=== PATIENT | female | born 1955 | race American Indian/Alaskan Native ===

== ENCOUNTER 2019-11-26 12:20 | Observation (INO) | payer MEDICARE ==
[2019-11-26] MEDS ORDERED: ASPIRIN 325 MG TAB PO ONE (12:41)
--- NOTE | 2019-11-26 13:23 | Emergency Department Report ---
{null, ED Chest Pain HPI - General Chief Complaint: Chest Pain Stated Complaint: CHEST PAIN Time Seen by Provider: 11/26/19 12:44 Source: EMS Mode of arrival: Stretcher Limitations: No Limitations - History of Present Illness Initial Comments: This is a 64-year-old female with multiple complaints. Her primary complaint is substernal chest pain. She said it started yesterday and it felt like gas. She also complained of pain in the left precordial chest and somewhat in her back as well as left arm. She states that she vomited yesterday and felt as if the food was not going down. She states that she has some difficulty in swallowing and feels like food hangs up. She does not complain of acute shortness of breath. She does not complain of acute diaphoresis. She also has a multitude of other complaints to include left-sided headache and left eye redness. She also states that she has abdominal pain. She is not nauseated at the current time. She denies cough leg pain or any sort of neurological or vision change. Per her 2019 discharge summary and cardiology consultation for chest pain. 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 She currently uses 2 L of oxygen continuously. She has continued to have left- sided aching posterior lateral thoracic chest pain with significant dyspnea on exertion despite home oxygen use. Patient was admitted to the hospital for further evaluation and management. Discharge diagnosis and Mx: Acute on chronic respiratory failure - from COPD exacerbation with obesity hypoventilation syndrome and pulmonary edema - on 2 L home o2 but still requiring higher O2 N/c now - CTA chest showed bilateral atelectatic changes and possible pneumonitis versus pulmonary edema - Placed on scheduled nebs, supplemental O2, pulmonary consulted - given iv lasix, repeated CXR showed worsening pulmonary edema, Bipap as needed, - Her symptom improved with medical Mx, was discharged home with , patient refused rehab - may qualified for [facility] - will continue to f/u at [facility] Atypical chest pain - ACS ruled out by negative stress test - could be from underlying pneumonitis - had h/p left lung mass treated with partial lobectomy - consulted pulmonary, noted medical records from [facility] - has f/u arranged at [facility] hyperkalemia, monitored BMP, kayexalate as needed, resolved h/o left lung mass (noncancerous vs cancerus) treated with partial lobectomy - noted record from [facility] - pathology record not available - will f/u outpt at [facility] Right renal mass (cancerous) treated with right nephrectomy - record from [facility] showed stable findings, need to cont outpt followup Right adrenal mass? - chronic and stable issue since her right nephrectomy per [facility] record - will f/u [facility] HTN/HLD - resumed home meds DM type 2 - Mx with consistent carb diet, SSI Physical debility - refused LUI, need HH on d/c DVt Px, lovenox Disposition: home with HH Cardiology consult 07/26: History of Present Illness Consult date: 07/23/19 Consult reason: chest pain History of present illness: 64-year-old female with a past medical history of diabetes, left lung mass (noncancerous) treated with partial lobectomy, right renal mass (cancerous) treated with right nephrectomy, elevated cholesterol, hypertension, and home oxy gen for the last 2 weeks after recent [facility] admission presents to the hospital complaining of left-sided chest pain and shortness of breath 2 weeks. She currently uses 2 L of oxygen continuously. She has continued to have left-sided aching posterior lateral thoracic chest pain with significant dyspnea on exertion despite home oxygen use. Pain is constant, worse with movement, and worse a palpation. Stress Thallium neg. Atypical CP was DX MD Complaint: chest pain -: Gradual Onset: during rest Pain Location: substernal Pain Radiation: LUE Severity: moderate, severe Severity scale (0 -10): 8 Quality: pressure Consistency: constant Improves With: nothing Worsens With: nothing re: nausea, vomting. denies: diaphoresis, dyspnea Other Symptoms: denies: cough, fever, syncope Treatments Prior to Arrival: none Aspirin use within the Past 7 Days: (0) No - Related Data Home Medications Medication Instructions Recorded Confirmed Last Taken AtorvaSTATin [Lipitor] 40 mg PO QHS 07/22/19 07/22/19 07/21/19 Insulin Aspart (Nf) [NovoLOG 0 units SQ AC 07/22/19 07/22/19 07/21/19 Flexpen] Insulin Detemir (Nf) [Levemir 0 unit SQ QHS 07/22/19 07/22/19 07/21/19 Flextouch (Nf)] NIFEdipine [Nifedipine ER] 30 mg PO QDAY 07/22/19 07/22/19 07/21/19 Oxybutynin [Ditropan] 5 mg PO TID 07/22/19 07/22/19 07/21/19 Previous Rx's Medication Instructions Recorded Last Taken Type Aspirin [Aspirin BABY CHEW TAB] 81 mg PO QDAY #30 tab.chew 07/27/19 Unknown Rx Budesonide/Formoterol Fumarate 10.2 gm IH BID #1 hfa.aer.ad 07/27/19 Unknown Rx [Symbicort 160-4.5 Mcg Inhaler] Furosemide [Lasix] 20 mg PO QDAY #30 tablet 07/27/19 Unknown Rx Gabapentin 100 mg PO Q8HR capsule 07/27/19 Unknown Rx Ipratropium/Albuterol Sulfate 1 ampul IH Q6HRT #30 ampul.neb 07/27/19 Unknown Rx [DUONEB *Not for PRN Use*] levoFLOXacin [Levaquin TAB] 500 mg PO Q24HR #3 tablet 07/27/19 Unknown Rx predniSONE [Deltasone] 20 mg PO QDAY #5 tab 07/27/19 Unknown Rx Allergies Allergy/AdvReac Type Severity Reaction Status Date / Time No Known Allergies Allergy Verified 11/26/19 13:09 Heart Score - HEART Score History: Moderately suspicious EKG: Non-specific Age: > 65 Risk factors: > 3 risk factors or hx of atherosclerotic disease Troponin: < normal limit HEART Score: 6 - Critical Actions Critical Actions: 4-6 pts:12-16.6% risk of adverse cardiac event. Should be adm itted ED Review of Systems ROS: Stated complaint: CHEST PAIN Other details as noted in HPI Constitutional: denies: chills, fever Eyes: other (States the left eye is not closing right). denies: eye pain, eye discharge, vision change ENT: denies: ear pain, throat pain Respiratory: denies: cough, shortness of breath, wheezing Cardiovascular: chest pain. denies: palpitations Endocrine: no symptoms reported Gastrointestinal: abdominal pain, nausea, vomiting, other (Dysphasia). denies: diarrhea Genitourinary: denies: urgency, dysuria, discharge Musculoskeletal: back pain. denies: joint swelling, arthralgia Skin: denies: rash, lesions Neurological: denies: headache, weakness, paresthesias Psychiatric: denies: anxiety, depression Hematological/Lymphatic: denies: easy bleeding, easy bruising ED Past Medical Hx - Past Medical History Previous Medical History?: Yes Hx Hypertension: Yes Hx Diabetes: Yes Hx COPD: Yes (O2-3LPM) Hx HIV: No Additional medical history: mass (noncancerous as per pt) on L kidney tx with partial lobectomy. mass on right kidney (cancer) tx with nephrectomy. Kidney stones treated with stent. Home oxygen since July 2019. Elevated cholesterol - Surgical History Past Surgical History?: Yes Additional Surgical History: mass (noncancerous as per pt) on L kidney tx with partial lobectomy. mass on right kidney (cancer) tx with nephrectomy - Social History Smoking Status: Former Smoker Substance Use Type: None - Medications Home Medications: Home Medications Medication Instructions Recorded Confirmed Last Taken Type AtorvaSTATin [Lipitor] 40 mg PO QHS 07/22/19 07/22/19 07/21/19 History Insulin Aspart (Nf) [NovoLOG 0 units SQ AC 07/22/19 07/22/19 07/21/19 History Flexpen] Insulin Detemir (Nf) [Levemir 0 unit SQ QHS 07/22/19 07/22/19 07/21/19 History Flextouch (Nf)] NIFEdipine [Nifedipine ER] 30 mg PO QDAY 07/22/19 07/22/19 07/21/19 History Oxybutynin [Ditropan] 5 mg PO TID 07/22/19 07/22/19 07/21/19 History Aspirin [Aspirin BABY CHEW TAB] 81 mg PO QDAY #30 tab.chew 07/27/19 Unknown Rx Budesonide/Formoterol Fumarate 10.2 gm IH BID #1 hfa.aer.ad 07/27/19 Unknown Rx [Symbicort 160-4.5 Mcg Inhaler] Furosemide [Lasix] 20 mg PO QDAY #30 tablet 07/27/19 Unknown Rx Gabapentin 100 mg PO Q8HR capsule 07/27/19 Unknown Rx Ipratropium/Albuterol Sulfate 1 ampul IH Q6HRT #30 ampul.neb 07/27/19 Unknown Rx [DUONEB *Not for PRN Use*] levoFLOXacin [Levaquin TAB] 500 mg PO Q24HR #3 tablet 07/27/19 Unknown Rx predniSONE [Deltasone] 20 mg PO QDAY #5 tab 07/27/19 Unknown Rx ED Physical Exam - General Limitations: No Limitations General appearance: alert, in no apparent distress - Head Head exam: Present: atraumatic, normocephalic - Eye Eye exam: Present: normal appearance, PERRL, EOMI, conjunctival injection (O. S.), other (There may be very slight lid edema but the palpebral fissure bilaterally is the same. There is no weakness.). Absent: scleral icterus - ENT ENT exam: Present: mucous membranes moist - Neck Neck exam: Present: normal inspection. Absent: tenderness, meningismus - Respiratory Respiratory exam: Present: normal lung sounds bilaterally. Absent: respiratory distress - Cardiovascular Cardiovascular Exam: Present: regular rate, normal rhythm. Absent: systolic murmur, diastolic murmur, rubs, gallop - GI/Abdominal GI/Abdominal exam: Present: soft, normal bowel sounds. Absent: distended, tenderness, guarding, rebound, rigid - Extremities Exam Extremities exam: Present: normal inspection. Absent: calf tenderness - Back Exam Back exam: Present: normal inspection - Neurological Exam Neurological exam: Present: alert, oriented X3, CN II-XII intact. Absent: motor sensory deficit - Psychiatric Psychiatric exam: Present: normal affect, normal mood - Skin Skin exam: Present: warm, dry, intact, normal color. Absent: rash ED Course Vital Signs 11/26/19 12:49 Temperature 98.1 F Pulse Rate 104 H Respiratory 22 Rate Blood Pressure 116/88 [Left] O2 Sat by Pulse 98 Oximetry - Reevaluation(s) Reevaluation #1: Discussed with Dr. Marquez. The patient has multitudinous complaints. We will get a CT of her head for complaint of headache. She will need a GI work-up. She will need further cardiac work-up. Is unclear whether she has recurrent lung mass versus pneumonia. We will get a CT of her chest. She will be admitted by Dr. Marquez. 11/26/19 14:35 ELI score - Eli Score Age > 65: (0) No Aspirin use within the Past 7 Days: (0) No 3 or more CAD Risk Factors: (1) Yes 2 or more Angina events in past 24 hrs: (0) No Known CAD with more than 50% Stenosis: (0) No Elevated Cardiac Markers: (0) No ST Deviation Greater than 0.5mm: (0) No ELI Score: 1 ED Medical Decision Making - Lab Data Result diagrams: 11/26/19 13:20 11/26/19 13:20 - EKG Data -: EKG Interpreted by Me EKG shows normal: sinus rhythm, axis, intervals, QRS complexes (QS in V2 with very small are in V3. J-point elevation. Cannot exclude anteroseptal infarct of indeterminate recency. May be related to lead position however. No reciprocal changes.), ST-T waves Rate: normal - EKG Data Interpretation: no acute changes - Radiology Data Radiology results: report reviewed, image reviewed IMPRESSION: Stable mild cardiomegaly. Possible early lingular infiltrate. Per radiologist Patient has had a previous lobectomy. The she has a history of malignancy. X- ray does look a bit worse than the prior. Critical care attestation.: If time is entered above; I have spent that time in minutes in the direct care of this critically ill patient, excluding procedure time. ED Disposition Clinical Impression: Diabetes 1.5, managed as type 2, Pulmonary infiltrate, Pulmonary mass COPD (chronic obstructive pulmonary disease) Qualifiers: COPD type: unspecified COPD Qualified Code(s): J44.9 - Chronic obstructive pulmonary disease, unspecified Chest pain Qualifiers: Chest pain type: unspecified Qualified Code(s): R07.9 - Chest pain, unspecified Dysphagia Qualifiers: Dysphagia type: unspecified Qualified Code(s): R13.10 - Dysphagia, unspecified Cephalalgia Qualifiers: Headache type: unspecified Headache chronicity pattern: unspecified pattern Intractability: not intractable Qualified Code(s): R51 - Headache Disposition: DC-09 OP ADMIT IP TO THIS HOSP Is pt being admited?: Yes Does the pt Need Aspirin: Yes Condition: Stable Instructions: Chest Pain (ED), Diabetes Mellitus Type 2 in Adults (ED), Chronic Obstructive Pulmonary Disease (ED) Time of Disposition: 14:33 }
--- NOTE | 2019-11-26 13:44 | XRay Report ---
{null, CHEST 1 VIEW INDICATION: Chest Pain. COMPARISON: 07/27/2019 FINDINGS: Support devices: None. Heart: Stable mild cardiomegaly. Lungs/Pleura: Focal airspace opacity is identified in the lingula which could represent an early infi ltrate. No large pleural effusion or pneumothorax. Additional findings: None. IMPRESSION: Stable mild cardiomegaly. Possible early lingular infiltrate. Signer Name: Aaron Cope Jr, MD Signed: 11/26/2019 1:40 PM Workstation Name: [id number] }
[2019-11-26 14:12] LABS: Basophils # (Auto) 0.1 K/mm3 (0.0-0.1); Basophils % (Auto) 0.9 % (0.0-1.8); Eosinophils # (Auto) 0.1 K/mm3 (0.0-0.4); Eosinophils % (Auto) 1.9 % (0.0-4.3); Hematocrit 39.6 % (30.3-42.9); Hemoglobin 12.8 gm/dl (10.1-14.3); Lymphocytes # (Auto) 2.3 K/mm3 (1.2-5.4); Lymphocytes % (Auto) 34.6 % (13.4-35.0); Mean Corpuscular HGB Conc 32 % (30-34); Mean Corpuscular Volume 84 fl (79-97); Monocytes # (Auto) 0.5 K/mm3 (0.0-0.8); Monocytes % (Auto) 7.1 % (0.0-7.3); Platelet Count 194 K/mm3 (140-440); Red Blood Count 4.72 M/mm3 (3.65-5.03); Red Cell Distribution Width 17.3 % (13.2-15.2)
[2019-11-26 14:21] LABS: INR 0.96 (0.87-1.13)
[2019-11-26 14:26] LABS: BUN/Creatinine Ratio 12; Blood Urea Nitrogen 13 mg/dL (7-17); Calcium 10.9 mg/dL (8.4-10.2); Hemolysis Index 25
--- NOTE | 2019-11-26 14:36 | History and Physical Report ---
{null, History of Present Illness Chief complaint: Hurting all over History of present illness: 64 YO Female with Obesity Hypoventilation, COPD on 2 L home oxygen, HTN, DM presents to ED for evaluation. Patient states that she experienced pain in her chest. However upon further interview patient localizes the epigastric area as the site of her pain. Patient also complains of neck pain as well as back pain. Patient states that pain begins in her neck and radiates down to her left arm. Patient also reports intermittent difficulty with swallowing and feeling as if food "hangs up". EMS notified and upon arrival the patient was found to be in distress and subsequently transported to [facility] for further care and evaluation. Patient seen and evaluated in the emergency department. Lab and imaging studies reviewed. Patient found to have symptoms consistent with epigastric pain secondary to gastroesophageal reflux disease, and cervical radicular pain. Patient placed in observation status and admitted to [facility] unit. Patient denies fever, chills, chest pain, palpitations, productive cough, skin rash, hemoptysis, bright red blood per rectum, odynophagia, unintentional weight loss, fever, chills, weakness, or recent ill contacts. Past History Past Medical History: COPD, diabetes, hypertension, other (See HPI) Past Surgical History: Other (Left lobectomy of the lung, right nephrectomy) Social history: , lives with family. denies: smoking, alcohol abuse Family history: diabetes, hypertension Medications and Allergies Allergies Allergy/AdvReac Type Severity Reaction Status Date / Time No Known Allergies Allergy Verified 11/26/19 13:09 Home Medications Medication Instructions Recorded Confirmed Last Taken Type AtorvaSTATin [Lipitor] 40 mg PO QHS 07/22/19 11/26/19 07/21/19 History Insulin Aspart (Nf) [NovoLOG 10 units SQ AC 07/22/19 11/26/19 07/21/19 History Flexpen] Insulin Detemir (Nf) [Levemir 28 unit SQ QHS 07/22/19 11/26/19 07/21/19 History Flextouch (Nf)] NIFEdipine [Nifedipine ER] 30 mg PO QDAY 07/22/19 11/26/19 07/21/19 History Oxybutynin [Ditropan] 5 mg PO TID PRN 07/22/19 11/26/19 07/21/19 History Aspirin [Aspirin BABY CHEW TAB] 81 mg PO QDAY #30 tab.chew 07/27/19 11/26/19 Unknown Rx Budesonide/Formoterol Fumarate 10.2 gm IH BID #1 hfa.aer.ad 07/27/19 11/26/19 Unknown Rx [Symbicort 160-4.5 Mcg Inhaler] Furosemide [Lasix] 20 mg PO QDAY #30 tablet 07/27/19 11/26/19 Unknown Rx Ipratropium/Albuterol Sulfate 1 ampul IH Q6HRT #30 ampul.neb 07/27/19 11/26/19 Unknown Rx [DUONEB *Not for PRN Use*] predniSONE [Deltasone] 20 mg PO QDAY #5 tab 07/27/19 Unknown Rx Gabapentin 1 cap PO TID 11/26/19 11/26/19 Unknown History lisinopriL [Zestril TAB] 1 tab PO DAILY 11/26/19 11/26/19 Unknown History Active Meds: Active Medications Levofloxacin/Dextrose (Levaquin 750mg/150ml) 750 mg in 150 mls @ 100 mls/hr IV ONCE ONE; Protocol Stop: 11/26/19 15:35 Review of Systems Constitutional: no weight loss, no weight gain, no fever, no chills, no weakness Ears, nose, mouth and throat: no ear pain, no ear discharge, no tinnitis, no decreased hearing, no nose pain Breasts: no change in shape, no swelling, no mass Cardiovascular: no chest pain, no palpitations, no rapid/irregular heart beat, no edema, no syncope Respiratory: no cough, no cough with sputum, no excessive sputum Gastrointestinal: other (Epigastric pain) Genitourinary Female: no pelvic pain, no flank pain, no menorrhagia, no urinary frequency, no urgency Rectal: no pain, no incontinence, no bleeding Musculoskeletal: neck pain, shooting arm pain, other (Back pain), no shooting leg pain, no leg numbness/tingling, no redness of joints Integumentary: no rash, no pruritis, no sores, no wounds Neurological: no transient paralysis, no paralysis, no weakness, no parathesias, no seizures Psychiatric: no anxiety, no memory loss, no sleep disturbances, no hypersomnia, no change in appetite Endocrine: no cold intolerance, no polyphagia, no polydipsia, no polyuria, no nocturia Hematologic/Lymphatic: no easy bruising, no easy bleeding, no lymphadenopathy, no lymphedema Allergic/Immunologic: no urticaria, no allergic rhinitis, no persistent infections, no angioedema Exam - Constitutional Vitals: Temp Pulse Resp BP Pulse Ox 98.1 F 104 H 22 116/88 98 11/26/19 12:49 11/26/19 12:49 11/26/19 12:49 11/26/19 12:49 11/26/19 12:49 General appearance: Present: no acute distress, well-nourished, obese - EENT Eyes: Present: PERRL ENT: hearing intact, clear oral mucosa - Neck Neck: Present: supple, normal ROM - Respiratory Respiratory effort: normal Respiratory: bilateral: CTA - Cardiovascular Heart Sounds: Present: S1 & S2. Absent: rub, click - Extremities Extremities: pulses symmetrical, No edema Peripheral Pulses: within normal limits - Abdominal General gastrointestinal: Present: soft, non-tender, non-distended, normal bowel sounds Female genitourinary: Present: normal - Integumentary Integumentary: Present: clear, warm, dry - Musculoskeletal Musculoskeletal: gait normal, strength equal bilaterally - Psychiatric Psychiatric: appropriate mood/affect, intact judgment & insight - Neurologic Neurologic: CNII-XII intact, moves all extremities Results - Labs CBC & Chem 7: 11/26/19 13:20 11/26/19 13:20 Labs: Abnormal lab results 11/26/19 11/26/19 Range/Units 13:20 13:20 MCH 27 L (28-32) pg RDW 17.3 H (13.2-15.2) % Carbon Dioxide 20 L (22-30) mmol/L Glucose 116 H (65-100) mg/dL Calcium 10.9 H (8.4-10.2) mg/dL Assessment and Plan - Patient Problems (1) Epigastric pain Current Visit: Yes Status: Acute Plan to address problem: PPI therapy, supportive care serial physical exam, outpatient GI follow-up. (2) GERD (gastroesophageal reflux disease) Current Visit: Yes Status: Acute Qualifiers: Esophagitis presence: with esophagitis Qualified Code(s): K21.0 - Gastro- esophageal reflux disease with esophagitis Plan to address problem: PPI therapy, supportive care, pain control, outpatient GI follow-up. (3) Cervical radiculopathy Current Visit: Yes Status: Acute Plan to address problem: Cervical spine x-ray, continue daily steroid therapy, supportive care, physical therapy consult. (4) Degenerative disc disease Current Visit: Yes Status: Acute Qualifiers: Spinal region: thoracic Qualified Code(s): M51.34 - Other intervertebral disc degeneration, thoracic region Plan to address problem: Thoracic spine x-ray, NSAID therapy as tolerated, supportive care. (5) DVT prophylaxis Current Visit: Yes Status: Acute Plan to address problem: SCD to bilateral lower extremities while in bed, patient ambulatory. (6) Advance care planning Current Visit: Yes Status: Acute Plan to address problem: Disease education conducted, patient is full code, patient and son acknowledge understanding and agreement with care plan, +30 minutes. }
[2019-11-26] MEDS ORDERED: ONDANSETRON 4 MG/2 ML INJ IV PRN (14:50)
[2019-11-26] MEDS ORDERED: ALBUTEROL 2.5 MG/3 ML NEBU IH PRN (14:50)
[2019-11-26 15:05] LABS: INR 0.97 (0.87-1.13)
[2019-11-26 16:12] LABS: Alanine Aminotransferase 8 units/L (7-56); Albumin 3.3 g/dL (3.9-5); Bilirubin,Direct < 0.2 mg/dL (0-0.2)
--- NOTE | 2019-11-26 17:58 | Cat Scan Report ---
{null, CT BRAIN: 11/26/2019 INDICATION / CLINICAL INFORMATION: headache. COMPARISON: None available. FINDINGS: BRAIN/INTRACRANIAL STRUCTURES: Unenhanced CT images of the brain demonstrate no evidence of acute int racranial abnormality. Ventricles and sulci are slightly prominent in size, consistent with some age-related atrophic change . There is no evidence of acute ischemic injury, hemorrhage, or mass. There are no abnormal extra-axial fluid collections. Atherosclerotic vascular calcifications are present in the distal internal carotid arteries and verte bral arteries. EXTRACRANIAL STRUCTURES: Unremarkable. IMPRESSION: No acute abnormality. All CT scans at this location are performed using dose reduction to ALARA by means of automated expos ure control. Signer Name: Reji Marie MD Signed: 11/26/2019 5:53 PM Workstation Name: [id number] }
--- NOTE | 2019-11-26 18:08 | Cat Scan Report ---
{null, CTA CHEST WITH IV CONTRAST INDICATION / CLINICAL INFORMATION: Left lung mass versus infiltrate. TECHNIQUE: Axial CT images were obtained through the chest after injection of 100 cc Omnipaque 350 milligrams pe rcent IV contrast. 3 plane MIP and/or 3D reconstructions were produced. All CT scans at this location are performed using CT dose reduction for ALARA by means of automated exposure control. COMPARISON: Exam is compared to 07/22/2019 FINDINGS: PULMONARY ARTERIES: No pulmonary emboli. THORACIC AORTA: No significant abnormality. HEART: No significant abnormality. CORONARY ARTERIES: No significant calcification. PLEURA: No pleural effusion. No pneumothorax. LYMPH NODES: Persistent enlargement of a pretracheal retrocaval lymph node is noted. No convincing ev idence of adenopathy in the aortic pulmonary window. Subcarinal adenopathy is present measuring 2.14 cm in short axis essentially unchanged as compared to previous exam LUNGS: Persistent airspace consolidation and pleural thickening is present left hemithorax and has in creased as compared to previous exam. Right lung is well aerated with prominent bronchovascular mike ngs ADDITIONAL FINDINGS: Enlargement of the left axillary lymph node as compared to previous exam, measur ing 2.6 cm on previous exam measured 1.94 cm and a 1.73 cm left adrenal mass increased from previous exam measured 1.23 cm UPPER ABDOMEN: 4 cm right adrenal mass is present worrisome for metastatic disease unchanged from pre vious exam SKELETAL STRUCTURES: Lytic lesion present posterior sixth rib on the left IMPRESSION: 1. No CT evidence for pulmonary embolism. 2. Progressive airspace process with pleural thickening left hemithorax worrisome for lung carcinoma with extensive pleural disease 3. Increased left axillary lymphadenopathy consistent with metastatic disease 4. Persistent mediastinal lymphadenopathy 5. Persistent right and left adrenal masses consistent with metastatic disease 6. Skeletal metastatic disease as noted Signer Name: Kade Galeas MD Signed: 11/26/2019 6:03 PM Workstation Name: [id number] }
[2019-11-26] MEDS: ACETAMINOPHEN 325 MG TAB PO PRN (20:21)
[2019-11-26] MEDS: OXYBUTYNIN 5 MG TAB PO SCH (20:23)
[2019-11-26] MEDS: PANTOPRAZOLE 40 MG TAB PO SCH (22:44)
[2019-11-26] MEDS: GABAPENTIN 100 MG CAP PO SCH (22:44)
[2019-11-27] MEDS: GABAPENTIN 100 MG CAP PO SCH ×2 (06:08→16:05)
[2019-11-27 06:31] LABS: BUN/Creatinine Ratio 18; Blood Urea Nitrogen 14 mg/dL (7-17); Calcium 11.1 mg/dL (8.4-10.2); Hemolysis Index 53
[2019-11-27 06:50] LABS: Hematocrit TNR % (30.3-42.9); Hemoglobin TNR gm/dl (10.1-14.3); Lymphocytes % (Auto) TNR % (13.4-35.0); Mean Corpuscular HGB Conc TNR % (30-34); Mean Corpuscular Volume TNR fl (79-97); Mean Platelet Volume TNR fl (6-12); Platelet Count TNR K/mm3 (140-440); Red Blood Count TNR M/mm3 (3.65-5.03); Red Cell Distribution Width TNR % (13.2-15.2)
[2019-11-27 07:02] LABS: Basophils # (Auto) TNR K/mm3 (0.0-0.1); Basophils % (Auto) TNR % (0.0-1.8); Eosinophils # (Auto) TNR K/mm3 (0.0-0.4); Eosinophils % (Auto) TNR % (0.0-4.3); Lymphocytes # (Auto) TNR K/mm3 (1.2-5.4); Monocytes # (Auto) TNR K/mm3 (0.0-0.8); Monocytes % (Auto) TNR % (0.0-7.3)
[2019-11-27 09:34] LABS: Basophils # (Auto) 0.1 K/mm3 (0.0-0.1); Basophils % (Auto) 1.7 % (0.0-1.8); Eosinophils # (Auto) 0.2 K/mm3 (0.0-0.4); Eosinophils % (Auto) 2.2 % (0.0-4.3); Hematocrit 38.8 % (30.3-42.9); Hemoglobin 12.3 gm/dl (10.1-14.3); Lymphocytes # (Auto) 2.5 K/mm3 (1.2-5.4); Lymphocytes % (Auto) 31.9 % (13.4-35.0); Mean Corpuscular HGB Conc 32 % (30-34); Mean Corpuscular Volume 84 fl (79-97); Monocytes # (Auto) 0.4 K/mm3 (0.0-0.8); Monocytes % (Auto) 5.4 % (0.0-7.3); Platelet Count 208 K/mm3 (140-440); Red Blood Count 4.61 M/mm3 (3.65-5.03); Red Cell Distribution Width 17.1 % (13.2-15.2)
[2019-11-27] MEDS ORDERED: predniSONE 20 MG TAB PO SCH (10:00)
[2019-11-27] MEDS ORDERED: NIFEdipine XL 30 MG TAB PO SCH (10:00)
[2019-11-27] MEDS ORDERED: ASPIRIN 81 MG TAB CHEW PO SCH (10:00)
[2019-11-27] MEDS ORDERED: FUROSEMIDE 20 MG TAB PO SCH (10:00)
[2019-11-27] MEDS ORDERED: NON-FORMULARY EACH (Nifedipine [Nifedipine Er] 30 MG) PO SCH (10:00)
[2019-11-27] MEDS: PANTOPRAZOLE 40 MG TAB PO SCH (11:30)
[2019-11-27] MEDS: OXYBUTYNIN 5 MG TAB PO SCH ×2 (11:33→16:05)
--- NOTE | 2019-11-27 11:43 | XRay Report ---
{null, THORACIC SPINE HISTORY: Pain COMPARISON: None. TECHNIQUE: Multiple 2 view(s) of the thoracic spine obtained. FINDINGS: Vertebrae: Normal alignment. No fracture or significant abnormality. Disc Spaces:Degenerative disc disease with large anterior and lateral osteophytes from T6 through T11 . Disc space narrowing is greatest at T9-10 and T10-11. Paraspinous Soft Tissues:No significant abnormality. Additional findings: None. IMPRESSION: 1. Degenerative disc disease T6-T11. 2. No fracture or other acute finding. Signer Name: Gab Fernandez MD Signed: 11/27/2019 11:38 AM Workstation Name: [id number] }
--- NOTE | 2019-11-27 11:47 | XRay Report ---
{null, CERVICAL SPINE 4 VIEWS 0942 INDICATION: neck pain COMPARISON: None available. FINDINGS: Extensive bilateral carotid region calcifications are seen. No soft tissue swelling is note d. Lower cervical degenerative changes are moderately prominent with moderate disc space narrowing at C5-6. Bony detail is poor on lateral projections at C6-7 despite a swimmer's lateral view. No obviou s fractures are seen. No subluxation is noted. Signer Name: Osman Reveles MD Signed: 11/27/2019 11:43 AM Workstation Name: [id number] }
--- NOTE | 2019-11-27 13:01 | Discharge Summary ---
{null, Providers - Providers Date of Admission: 11/26/19 14:50 Date of discharge: 11/27/19 Attending physician: NAOMI MURO 11/26/19 19:47 Physical Therapy Evaluation and Treat [CONS] Routine Comment: Reason For Exam: Cervical radiculopathy Primary care physician: HERD TESTER Hospitalization Condition: Stable Disposition: DC-01 TO HOME OR SELFCARE Time spent for discharge: 34 minutes Exam - Constitutional Vitals: Temp Pulse Resp BP Pulse Ox 98 F 98 H 18 132/94 100 11/27/19 08:00 11/27/19 10:00 11/27/19 08:00 11/27/19 08:00 11/27/19 08:00 Plan Activity: advance as tolerated Weight Bearing Status: Non-Weight Bearing Diet: low fat, low salt Follow up with: PRIMARY CARE, [Primary Care Provider] - 7 Days Prescriptions: Acetaminophen [Tylenol] 325 mg PO Q6H PRN #30 capsule PRN Reason: Pain, Moderate (4-6) }
[2019-11-27] MEDS: ACETAMINOPHEN 325 MG TAB PO PRN (19:19)
[2019-11-27 20:09] VITALS: BP 125/81
== END 2019-11-27 19:30 | disposition home or self-care (01) ==
LOC: ED 12:20 → 2B-ACE 14:50
PROVIDERS: ADMIT Internal Medicine; ATTEND Internal Medicine
DX: R10.13 Epigastric pain (principal); J44.9 Chronic obstructive pulmonary disease, unspecified; K21.9 Gastro-esophageal reflux disease without esophagitis; M54.12 Radiculopathy, cervical region; M51.34 Other intervertebral disc degeneration, thoracic region; I10 Essential (primary) hypertension; R13.10 Dysphagia, unspecified; R51 Headache; E11.9 Type 2 diabetes mellitus without complications; E66.2 Morbid (severe) obesity with alveolar hypoventilation; Z68.41 Body mass index [BMI] 40.0-44.9, adult; Z98.890 Other specified postprocedural states; Z79.4 Long term (current) use of insulin; Z79.82 Long term (current) use of aspirin; Z87.891 Personal history of nicotine dependence
CPT/HCPCS: 36415; 70450; 71045; 71275; 72040; 72070; 80048; 80076; 82140; 83690; 83735; 83880; 84484; 85025; 85610; 87040; 93005; 93010; 93306; 96365; 99285; A9270; G0378; J1956; J3246; J7512; Q9967

== ENCOUNTER 2020-01-31 05:52 | Inpatient (IN) | payer MEDICARE ==
[2020-01-31] MEDS ORDERED: SODIUM CHLORIDE 0.9% 500 ML 500 ML ONE ×2 (06:16→06:44)
[2020-01-31] MEDS ORDERED: SODIUM CHLORIDE 0.9% 1000 ML 1,000 ML IV ONE ×2 (06:34→09:26)
--- NOTE | 2020-01-31 07:04 | Emergency Department Report ---
ED General Adult HPI - General Chief complaint: Dyspnea/Respdistress Stated complaint: ENRIQUE/SNYCOPE EPISODE Time Seen by Provider: 01/31/20 06:18 Source: patient, EMS Mode of arrival: Stretcher Limitations: No Limitations - History of Present Illness Initial comments: This is a 64-year-old female that I have seen before. In November she was admitted under very similar circumstances. She had left-sided chest pain. In fact in 2019 she was admitted for similar complaints. Despite this she tells me she has never been to the emergency department for chest pain like this before. She states that she has no history of problems with her heart. Apparently she is a very poor historian. She has a history of a negative stress test in 2019. She has a history of partial lobectomy for a left lung mass which was noncancerous. She had a right nephrectomy for cancer. She denies a history of previous blood clots. She is not on anticoagulants and states she never has been. Patient states that she was awake at 5 AM when her left-sided chest pain began. She states it is not affected by breathing. She has had occasional cough but no hemoptysis. He does not refer nausea or vomiting. She states that she did pass out but did not hurt her self. The patient had a negative CTA of her chest in November when she presented with similar circumstances. As per her discharge summary in 2019: 64-year-old female with a past medical history of diabetes, left lung mass (noncancerous) treated with partial lobectomy, right renal mass (cancerous) treated with right nephrectomy, elevated cholesterol, hypertension, and home oxygen for the last 2 weeks after recent [facility] admission presents to the hospital complaining of left-sided chest pain and shortness of breath 2 weeks. She currently uses 2 L of oxygen continuously. She has continued to have left- sided aching posterior lateral thoracic chest pain with significant dyspnea on exertion despite home oxygen use. Patient was admitted to the hospital for further evaluation and management. Discharge diagnosis and Mx: Acute on chronic respiratory failure - from COPD exacerbation with obesity hypoventilation syndrome and pulmonary edema - on 2 L home o2 but still requiring higher O2 N/c now - CTA chest showed bilateral atelectatic changes and possible pneumonitis versus pulmonary edema - Placed on scheduled nebs, supplemental O2, pulmonary consulted - given iv lasix, repeated CXR showed worsening pulmonary edema, Bipap as needed, - Her symptom improved with medical Mx, was discharged home with HH, patient refused rehab - may qualified for trilogy - will continue to f/u at [facility] Atypical chest pain - ACS ruled out by negative stress test - could be from underlying pneumonitis - had h/p left lung mass treated with partial lobectomy - consulted pulmonary, noted medical records from [facility] - has f/u arranged at [facility] hyperkalemia, monitored BMP, kayexalate as needed, resolved h/o left lung mass (noncancerous vs cancerus) treated with partial lobectomy - noted record from [facility] - pathology record not available - will f/u outpt at [facility] Right renal mass (cancerous) treated with right nephrectomy - record from [facility] showed stable findings, need to cont outpt followup Right adrenal mass? - chronic and stable issue since her right nephrectomy per [facility] record - will f/u [facility] HTN/HLD - resumed home meds DM type 2 - Mx with consistent carb diet, SSI Physical debility - refused LUI, need HH on d/c DVt Px, lovenox Disposition: home with HH At the time of my exam, the patient is tachycardic and hypotensive. In the field she was thought to have A. fib. On review of her electrocardiogram and may have been multifocal atrial tachycardia. She presents to the emergency department in sinus tachycardia. She denies any recent travel or exposures. She denies fever or chills. -: Gradual Location: chest Quality: aching Consistency: constant Worsens with: none Associated Symptoms: shortness of breath, syncope Treatments Prior to Arrival: none - Related Data Home Medications Medication Instructions Recorded Confirmed Last Taken AtorvaSTATin [Lipitor] 40 mg PO QHS 07/22/19 01/31/20 07/21/19 Insulin Aspart (Nf) [NovoLOG 10 units SQ AC 07/22/19 01/31/20 07/21/19 Flexpen] Insulin Detemir (Nf) [Levemir 28 unit SQ QHS 07/22/19 01/31/20 07/21/19 Flextouch (Nf)] NIFEdipine [Nifedipine ER] 30 mg PO QDAY 07/22/19 01/31/20 07/21/19 lisinopriL [Zestril TAB] 1 tab PO DAILY 11/26/19 01/31/20 Unknown Previous Rx's Medication Instructions Recorded Last Taken Type Aspirin [Aspirin BABY CHEW TAB] 81 mg PO QDAY #30 tab.chew 07/27/19 Unknown Rx Acetaminophen [Tylenol] 325 mg PO Q6H PRN #30 capsule 11/27/19 Unknown Rx Allergies Allergy/AdvReac Type Severity Reaction Status Date / Time No Known Allergies Allergy Verified 11/26/19 13:09 ED Review of Systems ROS: Stated complaint: ENRIQUE/SNYCOPE EPISODE Other details as noted in HPI Constitutional: denies: chills, fever Eyes: denies: eye pain, eye discharge, vision change ENT: denies: ear pain, throat pain Respiratory: shortness of breath. denies: cough, wheezing Cardiovascular: chest pain, syncope. denies: palpitations Endocrine: no symptoms reported Gastrointestinal: denies: abdominal pain, nausea, diarrhea Genitourinary: denies: urgency, dysuria, discharge Musculoskeletal: denies: back pain, joint swelling, arthralgia Skin: denies: rash, lesions Neurological: denies: headache, weakness, paresthesias Psychiatric: denies: anxiety, depression Hematological/Lymphatic: denies: easy bleeding, easy bruising ED Past Medical Hx - Past Medical History Hx Hypertension: Yes Hx Diabetes: Yes Hx COPD: Yes (O2-3LPM) Hx HIV: No Additional medical history: mass (noncancerous as per pt) on L kidney tx with partial lobectomy. mass on right kidney (cancer) tx with nephrectomy. Kidney stones treated with stent. Home oxygen since July 2019. Elevated c holesterol - Surgical History Additional Surgical History: mass (noncancerous as per pt) on L kidney tx? (nurses note) with partial lobectomy. mass on right kidney (cancer) tx with nephrectomy - Family History Family history: other (Denies PE, DVT) - Social History Smoking Status: Former Smoker Substance Use Type: None - Medications Home Medications: Home Medications Medication Instructions Recorded Confirmed Last Taken Type AtorvaSTATin [Lipitor] 40 mg PO QHS 07/22/19 01/31/20 07/21/19 History Insulin Aspart (Nf) [NovoLOG 10 units SQ AC 07/22/19 01/31/20 07/21/19 History Flexpen] Insulin Detemir (Nf) [Levemir 28 unit SQ QHS 07/22/19 01/31/20 07/21/19 History Flextouch (Nf)] NIFEdipine [Nifedipine ER] 30 mg PO QDAY 07/22/19 01/31/20 07/21/19 History Aspirin [Aspirin BABY CHEW TAB] 81 mg PO QDAY #30 tab.chew 07/27/19 01/31/20 Unknown Rx lisinopriL [Zestril TAB] 1 tab PO DAILY 11/26/19 01/31/20 Unknown History Acetaminophen [Tylenol] 325 mg PO Q6H PRN #30 capsule 11/27/19 01/31/20 Unknown Rx ED Physical Exam - General Limitations: Physical Limitation General appearance: alert, other (Somewhat pale) - Head Head exam: Present: atraumatic, normocephalic - Eye Eye exam: Present: normal appearance. Absent: scleral icterus - ENT ENT exam: Present: mucous membranes moist - Neck Neck exam: Present: normal inspection. Absent: tenderness, meningismus - Respiratory Respiratory exam: Present: normal lung sounds bilaterally. Absent: respiratory distress - Cardiovascular Cardiovascular Exam: Present: tachycardia. Absent: systolic murmur, diastolic murmur - GI/Abdominal GI/Abdominal exam: Present: soft, normal bowel sounds. Absent: distended, tenderness, guarding, rebound - Extremities Exam Extremities exam: Present: normal inspection, normal capillary refill. Absent: calf tenderness - Back Exam Back exam: Present: normal inspection - Neurological Exam Neurological exam: Present: alert, oriented X3, motor sensory deficit. Absent: CN II-XII intact - Psychiatric Psychiatric exam: Present: normal affect, normal mood - Skin Skin exam: Present: warm, dry, intact, normal color. Absent: rash ED Course Vital Signs 01/31/20 01/31/20 01/31/20 05:58 06:00 06:07 Temperature 97.5 F L Pulse Rate 126 H 120 H 118 H Respiratory 20 29 H 30 H Rate Blood Pressure 92/65 96/45 O2 Sat by Pulse 95 95 95 Oximetry 01/31/20 01/31/20 01/31/20 06:15 06:30 06:45 Temperature Pulse Rate 125 H 114 H 116 H Respiratory 22 24 37 H Rate Blood Pressure 78/58 93/61 108/68 O2 Sat by Pulse 95 97 95 Oximetry 01/31/20 01/31/20 01/31/20 06:49 07:00 07:15 Temperature Pulse Rate 116 H 139 H Respiratory 30 H 29 H 34 H Rate Blood Pressure 102/60 97/65 O2 Sat by Pulse 95 98 Oximetry - Reevaluation(s) Reevaluation #1: Discussed with hospitalist. Patient admitted for further care. 01/31/20 10:28 ED Medical Decision Making - Lab Data Result diagrams: 01/31/20 06:42 01/31/20 06:42 - EKG Data -: EKG Interpreted by Tn EKG shows normal: sinus rhythm, axis, intervals, QRS complexes, ST-T waves Rate: tachycardia - EKG Data Interpretation: no acute changes IMPRESSION: 1. Positive critical value with new small right-sided pulmonary emboli. 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 3. Large malignant left loculated pleural effusion has increased in size and causes downward and medial mass affect upon the left hemidiaphragm with displacement of spleen and kidney medially. 4. Bilateral adrenal and left rib metastases, unchanged 01/31/20 09:43 - Radiology Data Radiology results: report reviewed IMPRESSION: 1. Positive critical value with new small right-sided pulmonary emboli. 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 3. Large malignant left loculated pleural effusion has increased in size and causes downward and medial mass affect upon the left hemidiaphragm with displacement of spleen and kidney medially. 4. Bilateral adrenal and left rib metastases, unchanged - Medical Decision Making Patient's EKG, troponin, BNP are normal. She is tachycardic. She does have an elevated lactic acid level. I begun antibiotic coverage with cefepime prior to CT report. I think it is not unlikely that the elevated lactic acid level is secondary to pulmonary embolism. The patient has been fully heparinized. I will not go forward with antibiotic coverage for sepsis at this point. She is given additional fluids however. Further medical decision making will be per the hospitalist team. Critical Care Time: Yes Critical care time in (mins) excluding proc time.: 90 Critical care attestation.: If time is entered above; I have spent that time in minutes in the direct care of this critically ill patient, excluding procedure time. ED Disposition Clinical Impression: Metastatic cancer Pulmonary embolism Qualifiers: Pulmonary embolism type: unspecified Chronicity: acute Acute cor pulmonale presence: without acute cor pulmonale Qualified Code(s): I26.99 - Other pulmonary embolism without acute cor pulmonale Disposition: OP ADMIT IP TO THIS HOSP Is pt being admited?: Yes Does the pt Need Aspirin: Yes Condition: Stable Referrals: PRIMARY CARE, [Primary Care Provider] - 3-5 Days Time of Disposition: 10:28
[2020-01-31 07:15] LABS: Basophils # (Auto) 0.1 K/mm3 (0.0-0.1); Basophils % (Auto) 1.1 % (0.0-1.8); Eosinophils % (Auto) 0.4 % (0.0-4.3); Hematocrit 35.5 % (30.3-42.9); Hemoglobin 11.4 gm/dl (10.1-14.3); Lymphocytes # (Auto) 2.9 K/mm3 (1.2-5.4); Lymphocytes % (Auto) 35.8 % (13.4-35.0); Mean Corpuscular HGB Conc 32 % (30-34); Mean Corpuscular Volume 85 fl (79-97); Monocytes # (Auto) 0.4 K/mm3 (0.0-0.8); Monocytes % (Auto) 4.5 % (0.0-7.3); Platelet Count 212 K/mm3 (140-440); Red Blood Count 4.16 M/mm3 (3.65-5.03); Red Cell Distribution Width 16.5 % (13.2-15.2)
[2020-01-31 07:23] LABS: INR 1.02 (0.87-1.13)
[2020-01-31 07:24] LABS: Partial Thromboplastin Time 25.6 Sec. (24.2-36.6)
--- NOTE | 2020-01-31 07:27 | XRay Report ---
CHEST 1 VIEW 0630 INDICATION / CLINICAL INFORMATION: Dyspnea. COMPARISON: 11/26/2019 FINDINGS: SUPPORT DEVICES: None HEART / MEDIASTINUM: Cardiomegaly is mildly more prominent. LUNGS / PLEURA: Mildly congested appearance is noted. Elevation the left hemidiaphragm is more pronou nced. Significantly more atelectasis is seen in the left mid lower lung field and pneumonic infiltrat e is suspected as well. Left perihilar and interstitial type infiltrate/edema is seen. Small left ple ural effusion is noted. Right lung field is clear. No pneumothorax. ADDITIONAL FINDINGS: No significant additional findings. IMPRESSION: Noticeable worsening on the left Signer Name: Osman Reveles MD Signed: 01/31/2020 7:23 AM Workstation Name: [id number]
[2020-01-31 07:34] LABS: Alanine Aminotransferase 15 units/L (7-56); Albumin 3.1 g/dL (3.9-5)
[2020-01-31 07:35] LABS: Bilirubin,Direct < 0.2 mg/dL (0-0.2)
[2020-01-31 07:37] LABS: BUN/Creatinine Ratio 12; Blood Urea Nitrogen 11 mg/dL (7-17); Calcium 10.6 mg/dL (8.4-10.2); Hemolysis Index 1
[2020-01-31 07:46] LABS: Creatine Kinase MB < 1.0 ng/mL (0.0-4.0)
[2020-01-31] MEDS ORDERED: CEFEPIME/NS 2 GM/100 ML 2 GM/100 ML BAG IV ONE (08:05)
--- NOTE | 2020-01-31 08:24 | Cat Scan Report ---
CT HEAD WITHOUT CONTRAST INDICATION / CLINICAL INFORMATION: MAIN: syncope x1day. TECHNIQUE: All CT scans at this location are performed using CT dose reduction for ALARA by means of automated e xposure control. COMPARISON: Head CT 11/26/2019 FINDINGS: HEMORRHAGE: None. EXTRA-AXIAL SPACES: Normal in size and morphology for the patient's age. VENTRICULAR SYSTEM: Normal in size and morphology for the patient's age. CEREBRAL PARENCHYMA: No significant abnormality. No acute territorial infarct. MIDLINE SHIFT OR HERNIATION: None. CEREBELLUM / BRAINSTEM: No significant abnormality. ORBITS: Normal as visualized. SOFT TISSUES of HEAD: No significant abnormality. CALVARIUM: No significant abnormality. PARANASAL SINUSES / MASTOID AIR CELLS: Normal as visualized. ADDITIONAL FINDINGS: Vascular calcifications again noted within both cavernous carotid and vertebral arteries, unchanged IMPRESSION: 1. No acute intracranial abnormality. Signer Name: Marco Swartz MD Signed: 01/31/2020 8:19 AM Workstation Name: [id number]
--- NOTE | 2020-01-31 08:47 | Cat Scan Report ---
CTA CHEST WITH IV CONTRAST INDICATION: MAIN: l CP, ENRIQUE, syncope, LT side CP x1wk [id number] 100ml . TECHNIQUE: Axial CT images were obtained through the chest after injection of 100 cc Omnipaque 350 IV contrast. 3 plane MIP reconstructions were produced. All CT scans at this location are performed using CT dose reduction for ALARA by means of automated exposure control. COMPARISON: CTA chest 11/26/2019 FINDINGS: PULMONARY ARTERIES: No intraluminal filling defects are seen within segmental arteries of right lower lobe characteristic for acute pulmonary emboli. No pulmonary emboli are seen within the left lung. THORACIC AORTA: No acute abnormality. HEART: Normal. CORONARY ARTERIES: No significant calcification. PLEURA: Moderate to large loculated left pleural effusion with nodular pleural thickening characteris tic for malignant effusion has increased in size. No pneumothorax. LYMPH NODES: There is extensive left-sided pleural thickening involving the entire mediastinal and pa rietal pleura with encasement of the left brachiocephalic subclavian arteries with multiple enlarged left axillary lymph nodes and multiple enlarged right paratracheal, subcarinal and bilateral hilar no yanet. LUNGS: Increased diffuse bilateral interstitial markings suggestive for superimposed pulmonary edema. ADDITIONAL FINDINGS: None. UPPER ABDOMEN: 4.8 cm right adrenal mass likely secondary to adrenal metastasis. Previously noted 2.2 cm left adrenal metastasis is again noted with displacement of the left adrenal gland medially. SKELETAL STRUCTURES: Chronic left fourth nonunited rib fracture with osseous destruction of left fift h and sixth lateral ribs as well as the left ninth through 11th posterior ribs. IMPRESSION: 1. Positive critical value with new small right-sided pulmonary emboli. 2 mediastinal, left axillary adenopathy with extensive left-sided pleural thickening with soft tissue encasement of the left subclavian artery characteristic for neoplasm likely secondary to Pancoast tu mor with malignant left pleural effusion, unchanged. 3. Large malignant left loculated pleural effusion has increased in size and causes downward and medi al mass affect upon the left hemidiaphragm with displacement of spleen and kidney medially. 4. Bilateral adrenal and left rib metastases, unchanged CRITICAL RESULT: Time of Discovery: 7:30 AM Central standard time 01/31/2020 Time of Communication: 7:40 AM central standard time 01/31/2020 Licensed Practitioner Receiving Report: Nurse [place] Read Back Performed: Yes. Signer Name: Marco Swartz MD Signed: 01/31/2020 8:43 AM Workstation Name: [id number]
[2020-01-31] MEDS ORDERED: HEPARIN 10,000 UNITS/10 ML VIAL IV ONE (09:00)
[2020-01-31] MEDS: HEPARIN/ 0.45% NACL DRIP 25,000 UNIT/500 ML BAG IV SCH (09:29)
--- NOTE | 2020-01-31 10:52 | History and Physical Report ---
History of Present Illness Date of examination: 01/31/20 Date of admission: 01/31/20 10:13 Chief complaint: Shortness of breath and chest pain, syncopal episode History of present illness: Very pleasant 64-year-old morbidly obese female patient with significant past m edical history of left lung mass status post partial lobectomy many years ago right renal ma malignant renal mass status post right nephrectomy, hypertension diabetes mellitus , dyslipidemia, adrenal mass, COPD home oxygen dependent, degenerative disc disease,m, Presented to the emergency room with worsening shortness of breath and syncopal episode. And also complains of chest pain and mild cough Denies any nausea vomiting or abdominal pain, denies headache or dizziness, complains of generalized weakness Initial work-up in the emergency room revealed elevated D-dimers subsequently had CTA chest, positive for PE And multiple other findings as mentioned below Patient was started on heparin drip, oxygen and supportive care Past History Past Medical History: COPD (Oxygen dependent), GERD, hypertension, hyperlipidemia, other (Malignant tumors, adrenal mass, degenerative disc disease) Past Surgical History: Other (Lung lobectomy, nephrectomy) Social history: denies: smoking, alcohol abuse, prescription drug abuse Family history: hypertension Medications and Allergies Allergies Allergy/AdvReac Type Severity Reaction Status Date / Time No Known Allergies Allergy Verified 11/26/19 13:09 Home Medications Medication Instructions Recorded Confirmed Last Taken Type AtorvaSTATin [Lipitor] 40 mg PO QHS 07/22/19 01/31/20 07/21/19 History Insulin Aspart (Nf) [NovoLOG 10 units SQ AC 07/22/19 01/31/20 07/21/19 History Flexpen] Insulin Detemir (Nf) [Levemir 28 unit SQ QHS 07/22/19 01/31/20 07/21/19 History Flextouch (Nf)] NIFEdipine [Nifedipine ER] 30 mg PO QDAY 07/22/19 01/31/20 07/21/19 History Aspirin [Aspirin BABY CHEW TAB] 81 mg PO QDAY #30 tab.chew 07/27/19 01/31/20 Unknown Rx lisinopriL [Zestril TAB] 1 tab PO DAILY 11/26/19 01/31/20 Unknown History Acetaminophen [Tylenol] 325 mg PO Q6H PRN #30 capsule 11/27/19 01/31/20 Unknown Rx Active Meds: Active Medications Aspirin (Baby Aspirin) 81 mg PO QDAY [facility] Heparin Sodium/Sodium Chloride (Heparin/ 0.45% Nacl-25,000 Unit/500 Ml) 25,000 unit in 500 mls @ 30 mls/hr IV TITR [facility]; Protocol Last Admin: 01/31/20 09:29 Dose: 1,500 units/hr, 30 mls/hr Documented by: Sodium Chloride (Nacl 0.9% 1000 Ml) 1,000 mls @ 250 mls/hr IV ONCE ONE Stop: 01/31/20 13:25 Last Admin: 01/31/20 09:37 Dose: 250 mls/hr Documented by: Review of Systems Constitutional: fatigue, weakness, no weight loss, no weight gain, no fever, no chills Ears, nose, mouth and throat: no nasal congestion, no nasal discharge Cardiovascular: chest pain, shortness of breath Respiratory: cough, shortness of breath, other (Lung mass) Gastrointestinal: no abdominal pain, no nausea, no vomiting Musculoskeletal: no myalgias, no arthritis Integumentary: no rash, no lesions Neurological: weakness Psychiatric: anxiety, no suicidal ideation, no depression Endocrine: no cold intolerance, no heat intolerance, no polydipsia, no polyuria Hematologic/Lymphatic: no easy bruising, no easy bleeding Allergic/Immunologic: no urticaria, no allergic rhinitis Exam - Constitutional Vitals: Temp Pulse Resp BP Pulse Ox 97.5 F L 154 H 29 H 133/94 86 01/31/20 06:07 01/31/20 10:31 01/31/20 10:31 01/31/20 10:31 01/31/20 10:31 General appearance: Present: severe distress, well-nourished, obese (Morbidly obese) - EENT Eyes: Present: PERRL, EOM intact - Neck Neck: Present: supple, normal ROM - Respiratory Respiratory effort: normal Respiratory: bilateral: diminished, rhonchi, negative: rales, wheezing - Cardiovascular Rhythm: regular Heart Sounds: Present: S1 & S2 - Extremities Extremities: no ischemia, No edema - Abdominal General gastrointestinal: Present: soft, non-tender, non-distended, normal bowel sounds - Integumentary Integumentary: Present: clear, warm Results - Labs CBC & Chem 7: 01/31/20 06:42 01/31/20 06:42 Labs: Abnormal lab results 01/31/20 01/31/20 01/31/20 Range/Units 06:42 06:42 06:42 RDW 16.5 H (13.2-15.2) % Lymph % (Auto) 35.8 H (13.4-35.0) % D-Dimer 824.84 H (0-234) ng/mlDDU Carbon Dioxide 21 L (22-30) mmol/L Glucose 137 H (65-100) mg/dL Lactic Acid (0.7-2.0) mmol/L Calcium 10.6 H (8.4-10.2) mg/dL Magnesium 1.60 L (1.7-2.3) mg/dL Transferrin (192-382) mg/dl Lactate Dehydrogenase (91-180) units/L Total Creatine Kinase 28 L (30-135) units/L Albumin (3.9-5) g/dL 01/31/20 01/31/20 01/31/20 Range/Units 06:42 06:42 07:39 RDW (13.2-15.2) % Lymph % (Auto) (13.4-35.0) % D-Dimer (0-234) ng/mlDDU Carbon Dioxide (22-30) mmol/L Glucose (65-100) mg/dL Lactic Acid 2.80 H* 3.40 H* (0.7-2.0) mmol/L Calcium (8.4-10.2) mg/dL Magnesium (1.7-2.3) mg/dL Transferrin (192-382) mg/dl Lactate Dehydrogenase (91-180) units/L Total Creatine Kinase (30-135) units/L Albumin 3.1 L (3.9-5) g/dL 01/31/20 01/31/20 01/31/20 Range/Units 08:38 08:38 08:38 RDW (13.2-15.2) % Lymph % (Auto) (13.4-35.0) % D-Dimer 856.13 H (0-234) ng/mlDDU Carbon Dioxide (22-30) mmol/L Glucose (65-100) mg/dL Lactic Acid 3.20 H* (0.7-2.0) mmol/L Calcium (8.4-10.2) mg/dL Magnesium (1.7-2.3) mg/dL Transferrin 184 L (192-382) mg/dl Lactate Dehydrogenase 257 H (91-180) units/L Total Creatine Kinase (30-135) units/L Albumin (3.9-5) g/dL Assessment and Plan --Acute on chronic hypoxic respiratory failure; Home oxygen dependent, oxygen titrate O2 sats more than 90% BiPAP as needed, nebulizers, IV steroids, IV antibiotics Pulmonary consult CT angiogram of the chest: 1. Positive critical value with new small right-sided pulmonary emboli. 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 3. Large malignant left loculated pleural effusion has increased in size and causes downward and medial mass affect upon the left hemidiaphragm with displacement of spleen and kidney medially. 4. Bilateral adrenal and left rib metastases, unchanged --Acute pulmonary embolism; With elevated D-dimers, heparin drip per protocol Oxygen titrate O2 sats more than 90%, supportive care Check lower extremity venous Doppler --Metastatic Pancoast tumor; on CTA chest Supportive care, pulmonary, oncology consult Get old records from the past --Malignant left pleural effusion; Supportive care, thoracentesis if needed --Syncopal episode; Fall precautions, syncope work-up, check orthostats Carotid Doppler echocardiogramn CT scan negative for acute abnormality --Lactic acidosis; no evidence of infection at this point Empiric antibiotics, follow cultures --Possible UTI; empiric antibiotics Follow cultures --Hypomagnesemia; replenish per protocol with mag sulfate Monitor electrolytes --Moderate malnutrition/hypoalbuminemia Due to underlying disease process Nutrition supplements and supportive care --Type 2 diabetes mellitus; Accu-Chek sliding scale coverage ADA diet Long-acting insulin as needed --Hypertension; moderate control Resume home antihypertensives and PRN medications --Dyslipidemia; resume statin --Morbid obesity; BMI 40.1 Patient may need to reduce weight when medically stable --DVT prophylax; patient is on heparin drip --Full CODE STATUS; Monitor closely and adjust management as needed Plan of care reviewed with the patient and her nurse Critical care time 63 minutes
[2020-01-31 11:08] LABS: Bacteria,Urine 1+ /HPF (Negative); Bilirubin,Urine NEG (Negative); Blood,Urine NEG (Negative); Color,Urine Yellow (Yellow); Mucus,Urine FEW /HPF; Protein,Urine <15 mg/dL mg/dL (Negative); Urobilinogen,Urine < 2.0 mg/dL (<2.0); WBC,Urine < 1.0 /HPF (0.0-6.0)
[2020-01-31] MEDS ORDERED: NON-FORMULARY EACH (Insulin Aspart (Nf) 10 UNITS) SQ SCH (11:30)
[2020-01-31] MEDS ORDERED: MAGNESIUM SULFATE 2 GM/50 ML BAG IV ONE (12:00)
[2020-01-31] MEDS: INSULIN LISPRO 100 UNIT/ML SUB-Q SCH ×5 (12:34→21:03)
[2020-01-31] MEDS ORDERED: ONDANSETRON 4 MG/2 ML INJ IV PRN (12:51)
[2020-01-31] MEDS: NIFEdipine XL 30 MG TAB PO SCH (12:54)
[2020-01-31] MEDS: cefTRIAXone/NS 1 GM/50 ML 1 GM/50 ML BAG IV SCH (19:44)
[2020-01-31] MEDS: INSULIN GLARGINE 100 UNITS/ML SUB-Q SCH (21:03)
[2020-01-31] MEDS ORDERED: INSULIN DETEMIR 28 UNIT SQ SCH (22:00)
[2020-02-01] MEDS: HEPARIN/ 0.45% NACL DRIP 25,000 UNIT/500 ML BAG IV SCH (04:22)
[2020-02-01 05:46] LABS: Basophils # (Auto) 0.1 K/mm3 (0.0-0.1); Basophils % (Auto) 0.9 % (0.0-1.8); Eosinophils % (Auto) 0.2 % (0.0-4.3); Hematocrit 34.2 % (30.3-42.9); Hemoglobin 10.9 gm/dl (10.1-14.3); Lymphocytes # (Auto) 1.4 K/mm3 (1.2-5.4); Lymphocytes % (Auto) 20.4 % (13.4-35.0); Mean Corpuscular HGB Conc 32 % (30-34); Mean Corpuscular Volume 84 fl (79-97); Monocytes # (Auto) 0.4 K/mm3 (0.0-0.8); Monocytes % (Auto) 5.7 % (0.0-7.3); Platelet Count 232 K/mm3 (140-440); Red Blood Count 4.06 M/mm3 (3.65-5.03); Red Cell Distribution Width 16.5 % (13.2-15.2)
[2020-02-01 06:11] LABS: Alanine Aminotransferase 16 units/L (7-56); Albumin 3.4 g/dL (3.9-5); BUN/Creatinine Ratio 13; Blood Urea Nitrogen 10 mg/dL (7-17); Calcium 10.5 mg/dL (8.4-10.2); Hemolysis Index 1
[2020-02-01] MEDS: INSULIN LISPRO 100 UNIT/ML SUB-Q SCH ×8 (08:03→21:46)
[2020-02-01] MEDS: cefTRIAXone/NS 1 GM/50 ML 1 GM/50 ML BAG IV SCH (09:18)
[2020-02-01] MEDS: NIFEdipine XL 30 MG TAB PO SCH (09:18)
[2020-02-01] MEDS: ASPIRIN 81 MG TAB CHEW PO SCH (09:18)
[2020-02-01] MEDS: LISINOPRIL 5 MG TAB PO SCH (09:24)
--- NOTE | 2020-02-01 10:09 | Progress Note ---
Assessment and Plan Assessment and plan: --Acute on chronic hypoxic respiratory failure; Home oxygen dependent, oxygen titrate O2 sats more than 90% BiPAP as needed, nebulizers, IV steroids, IV antibiotics Pulmonary consult CT angiogram of the chest: 1. Positive critical value with new small right-sided pulmonary emboli. 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 3. Large malignant left loculated pleural effusion has increased in size and causes downward and medial mass affect upon the left hemidiaphragm with displacement of spleen and kidney medially. 4. Bilateral adrenal and left rib metastases, unchanged --Acute pulmonary embolism; With elevated D-dimers, heparin drip per protocol Oxygen titrate O2 sats more than 90%, supportive care Check lower extremity venous Doppler --Metastatic Pancoast tumor; on CTA chest Supportive care, pulmonary, oncology consult Get old records from the past --Malignant left pleural effusion; Supportive care, thoracentesis if needed --Syncopal episode; Fall precautions, syncope work-up, check orthostats Carotid Doppler echocardiogramn CT scan negative for acute abnormality --Lactic acidosis; no evidence of infection at this point Empiric antibiotics, follow cultures --Possible UTI; empiric antibiotics Follow cultures --Hypomagnesemia; replenish per protocol with mag sulfate Monitor electrolytes --Moderate malnutrition/hypoalbuminemia Due to underlying disease process Nutrition supplements and supportive care --Type 2 diabetes mellitus; Accu-Chek sliding scale coverage ADA diet Long-acting insulin as needed --Hypertension; moderate control Resume home antihypertensives and PRN medications --Dyslipidemia; resume statin --Morbid obesity; BMI 40.1 Patient may need to reduce weight when medically stable --DVT prophylax; patient is on heparin drip --Full CODE STATUS; Monitor closely and adjust management as needed Plan of care reviewed with the patient and her nurse Hematology oncology and pulmonary evaluation and recommendations Noted and appreciated History Interval history: Seen and examined this morning at the bedside patient's chart and other records reviewed Patient feels slightly better venous Doppler BilLE is negative for DVT Patient is in mild distress Vital signs reviewed Hospitalist Physical - Constitutional Vitals: Temp Pulse Resp BP Pulse Ox 98.4 F 114 H 18 102/69 95 02/01/20 07:43 02/01/20 09:24 02/01/20 07:43 02/01/20 09:24 02/01/20 05:15 General appearance: Present: mild distress, well-nourished, obese (Morbidly obese) - EENT Eyes: Present: PERRL, EOM intact - Neck Neck: Present: supple, normal ROM - Respiratory Respiratory effort: normal Respiratory: bilateral: diminished, rhonchi, negative: rales, wheezing - Cardiovascular Rhythm: regular Heart Sounds: Present: S1 & S2 - Extremities Extremities: no ischemia, No edema - Abdominal General gastrointestinal: soft, non-tender, non-distended, normal bowel sounds - Integumentary Integumentary: Present: clear, warm - Psychiatric Psychiatric: appropriate mood/affect, cooperative - Neurologic Neurologic: moves all extremities ELI score - Eli Score Age > 65: (0) No Aspirin use within the Past 7 Days: (0) No 3 or more CAD Risk Factors: (1) Yes 2 or more Angina events in past 24 hrs: (0) No Known CAD with more than 50% Stenosis: (0) No Elevated Cardiac Markers: (0) No ST Deviation Greater than 0.5mm: (0) No ELI Score: 1 Results - Labs CBC & Chem 7: 02/01/20 05:04 02/01/20 05:04 Labs: Laboratory Last Values WBC 7.0 K/mm3 (4.5-11.0) 02/01/20 05:04 RBC 4.06 M/mm3 (3.65-5.03) 02/01/20 05:04 Hgb 10.9 gm/dl (10.1-14.3) 02/01/20 05:04 Hct 34.2 % (30.3-42.9) 02/01/20 05:04 MCV 84 fl (79-97) 02/01/20 05:04 MCH 27 pg (28-32) L 02/01/20 05:04 MCHC 32 % (30-34) 02/01/20 05:04 RDW 16.5 % (13.2-15.2) H 02/01/20 05:04 Plt Count 232 K/mm3 (140-440) 02/01/20 05:04 Lymph % (Auto) 20.4 % (13.4-35.0) 02/01/20 05:04 [place] % (Auto) 5.7 % (0.0-7.3) 02/01/20 05:04 Eos % (Auto) 0.2 % (0.0-4.3) 02/01/20 05:04 Baso % (Auto) 0.9 % (0.0-1.8) 02/01/20 05:04 Lymph # 1.4 K/mm3 (1.2-5.4) 02/01/20 05:04 [place] # 0.4 K/mm3 (0.0-0.8) 02/01/20 05:04 Eos # 0.0 K/mm3 (0.0-0.4) 02/01/20 05:04 Baso # 0.1 K/mm3 (0.0-0.1) 02/01/20 05:04 Seg Neutrophils % 72.8 % (40.0-70.0) H 02/01/20 05:04 Seg Neutrophils # 5.1 K/mm3 (1.8-7.7) 02/01/20 05:04 PT 13.5 Sec. (12.2-14.9) 01/31/20 06:42 INR 1.02 (0.87-1.13) 01/31/20 06:42 APTT 25.6 Sec. (24.2-36.6) 01/31/20 06:42 D-Dimer 856.13 ng/mlDDU (0-234) H 01/31/20 08:38 Heparin Anti-Xa Level 1.15 U.I./ml (0.3-0.7) H 02/01/20 08:16 Sodium 141 mmol/L (137-145) 02/01/20 05:04 Potassium 3.9 mmol/L (3.6-5.0) 02/01/20 05:04 Chloride 106.0 mmol/L (98-107) 02/01/20 05:04 Carbon Dioxide 22 mmol/L (22-30) 02/01/20 05:04 Anion Gap 17 mmol/L 02/01/20 05:04 BUN 10 mg/dL (7-17) 02/01/20 05:04 Creatinine 0.8 mg/dL (0.7-1.2) 02/01/20 05:04 Estimated GFR > 60 ml/min 02/01/20 05:04 BUN/Creatinine Ratio 13 % 02/01/20 05:04 Glucose 104 mg/dL (65-100) H 02/01/20 05:04 POC Glucose 101 (70-105) 02/01/20 07:52 Lactic Acid 1.70 mmol/L (0.7-2.0) 01/31/20 23:01 Calcium 10.5 mg/dL (8.4-10.2) H 02/01/20 05:04 Magnesium 1.60 mg/dL (1.7-2.3) L 01/31/20 06:42 Transferrin 184 mg/dl (192-382) L 01/31/20 08:38 Total Bilirubin 0.30 mg/dL (0.1-1.2) 02/01/20 05:04 Direct Bilirubin < 0.2 mg/dL (0-0.2) 01/31/20 06:42 AST 14 units/L (5-40) 02/01/20 05:04 ALT 16 units/L (7-56) 02/01/20 05:04 Alkaline Phosphatase 111 units/L (35-129) 02/01/20 05:04 Lactate Dehydrogenase 257 units/L (91-180) H 01/31/20 08:38 Total Creatine Kinase 28 units/L (30-135) L 01/31/20 06:42 CK-MB (CK-2) < 1.0 ng/mL (0.0-4.0) 01/31/20 06:42 CK-MB (CK-2) Rel Index 3.5 (0-4) 01/31/20 06:42 Troponin T < 0.010 ng/mL (0.00-0.029) 01/31/20 09:33 NT-Pro-B Natriuret Pep 121.1 pg/mL (0-900) 01/31/20 06:42 Total Protein 6.9 g/dL (6.3-8.2) 02/01/20 05:04 Albumin 3.4 g/dL (3.9-5) L 02/01/20 05:04 Albumin/Globulin Ratio 1.0 % 02/01/20 05:04 Urine Color Yellow (Yellow) 01/31/20 10:45 Urine Turbidity Clear (Clear) 01/31/20 10:45 Urine pH 5.0 (5.0-7.0) 01/31/20 10:45 Ur Specific [place] 1.053 (1.003-1.030) H 01/31/20 10:45 Urine Protein <15 mg/dl mg/dL (Negative) 01/31/20 10:45 Urine Glucose (UA) Neg mg/dL (Negative) 01/31/20 10:45 Urine Ketones Tr mg/dL (Negative) 01/31/20 10:45 Urine Blood Neg (Negative) 01/31/20 10:45 Urine Nitrite Neg (Negative) 01/31/20 10:45 Urine Bilirubin Neg (Negative) 01/31/20 10:45 Urine Urobilinogen < 2.0 mg/dL (<2.0) 01/31/20 10:45 Ur Leukocyte Esterase Tr (Negative) 01/31/20 10:45 Urine WBC (Auto) < 1.0 /HPF (0.0-6.0) 01/31/20 10:45 Urine RBC (Auto) 2.0 /HPF (0.0-6.0) 01/31/20 10:45 U Epithel Cells (Auto) 8.0 /HPF (0-13.0) 01/31/20 10:45 Urine Bacteria (Auto) 1+ /HPF (Negative) 01/31/20 10:45 Urine Mucus Few /HPF 01/31/20 10:45 Microbiology: Microbiology 01/31/20 Unknown Urine,Clean Catch Urine Culture - Preliminary NO GROWTH AFTER 24 HOURS 01/31/20 06:42 Peripheral/Venous Blood Culture - Preliminary Culture in Progress 01/31/20 06:42 Peripheral/Venous Blood Culture - Preliminary Culture in Progress Torres/IV: Voiding Method Bedside Commode IV Catheter Type [Right INT / Saline Lock Antecubital] IV Catheter Type [Right INT / Saline Lock Forearm] Active Medications - Current Medications Current Medications: Generic Name Dose Route Start Last Admin Trade Name Freq PRN Reason Stop Dose Admin Aspirin 81 mg 02/01/20 10:00 02/01/20 09:18 Baby Aspirin PO 81 mg QDAY RODRIGUE Administration Atorvastatin Calcium 40 mg 01/31/20 22:00 01/31/20 21:03 Lipitor PO 40 mg QHS RODRIGUE Administration Heparin Sodium/Sodium Chloride 25,000 unit in 500 mls @ 30 mls/hr 01/31/20 10:00 02/01/20 04:22 Heparin/ 0.45% Nacl-25,000 Unit/500 Ml IV 1,100 units/hr TITR RODRIGUE 22 mls/hr Administration Protocol 1,500 UNITS/HR Ceftriaxone Sodium 1 gm in 50 mls @ 100 mls/hr 01/31/20 19:30 02/01/20 09:18 Rocephin/Ns 1 Gm/50 Ml IV 100 mls/hr Q24HR RODRIGUE Administration Protocol Insulin Glargine 28 units 01/31/20 22:00 01/31/20 21:03 Lantus SUB-Q 28 units QHS RODRIGUE Administration Insulin Human Lispro 10 unit 01/31/20 11:30 02/01/20 08:40 Humalog SUB-Q 10 unit AC RODRIGUE Administration Insulin Human Lispro 0 unit 01/31/20 11:30 02/01/20 08:03 Humalog SUB-Q Not Given ACHS [facility] Protocol Lisinopril 5 mg 02/01/20 10:00 02/01/20 09:24 Zestril PO Not Given DAILY [facility] Nifedipine 30 mg 01/31/20 12:00 02/01/20 09:18 Procardia Xl PO 30 mg QDAY RODRIGUE Administration Ondansetron HCl 4 mg 01/31/20 12:51 Zofran IV Q4H PRN Nausea And Vomiting
--- NOTE | 2020-02-01 11:14 | Vascular Lab Report ---
DUPLEX DOPPLER LOWER EXTREMITY VEINS, BILATERAL INDICATION: Elevated D-dimers/PE/evaluate for DVT. TECHNIQUE: Duplex doppler imaging was performed through the veins of both lower extremities using venous umesh sofia and other maneuvers. COMPARISON: No relevant prior imaging study available. FINDINGS: Right Common femoral vein: Negative. Right Superficial femoral vein: Negative. Right Popliteal vein: Negative. Right Calf veins: Negative. Left Common femoral vein: Negative. Left Superficial femoral vein: Negative. Left Popliteal vein: Negative. Left Calf veins: Negative. Additional findings: None.. IMPRESSION: 1. No sonographic evidence for DVT in either lower extremity. Signer Name: Cheng Garrison MD Signed: 02/01/2020 11:09 AM Workstation Name: [id number]
--- NOTE | 2020-02-01 13:21 | Consultation ---
History of Present Illness Consult date: 02/01/20 Requesting physician: KARIE TAPIA History of present illness: Very pleasant 64-year-old morbidly obese female patient with significant past me dical history of left lung mass status post partial lobectomy many years ago; right malignant renal mass status post right nephrectomy in 2006, hypertension diabetes mellitus, dyslipidemia, adrenal mass, COPD home oxygen dependent ( at 4l/min) , degenerative disc disease, who presented to the emergency room with worsening shortness of breath and syncopal episode. And also complains of chest pain and mild cough. She has a 40 pack year smoking history, started smoking at age 11 years. She quit smoking in 2016 Denies any nausea vomiting or abdominal pain, denies headache or dizziness, complains of generalized weakness She tammy any hemoptysis, no night sweats, no weight loss Initial work-up in the emergency room revealed elevated D-dimer subsequently had CTA chest, positive for PE and complex pleural effusion with what looks like malignant tumor encasing the great vessels Patient was started on heparin drip, oxygen and supportive care I have been consulted for acute an d chronic respiratory failure; complex left pleural space; Pulmonary embolism Thank you. Patient was seen and examined. Vitals, labs, medications, chart and imaging reviewed At the time of my visit, she was sitting up in bed, comfortable having lunch. She denies any chest pain at this time, but endorses shortness of breath. She states that her care is at the [facility] Stated complaint: ENRIQUE/SNYCOPE EPISODE Other details as noted in HPI Constitutional: denies: chills, fever Eyes: denies: eye pain, eye discharge, vision change ENT: denies: ear pain, throat pain Respiratory: shortness of breath. denies: cough, wheezing Cardiovascular: chest pain, syncope. denies: palpitations Endocrine: no symptoms reported Gastrointestinal: denies: abdominal pain, nausea, diarrhea Genitourinary: denies: urgency, dysuria, discharge Musculoskeletal: denies: back pain, joint swelling, arthralgia Skin: denies: rash, lesions Neurological: denies: headache, weakness, paresthesias Psychiatric: denies: anxiety, depression Hematological/Lymphatic: denies: easy bleeding, easy bruising - Past Medical History Hx Hypertension: Yes Hx Diabetes: Yes Hx COPD: Yes (O2-3LPM) Hx HIV: No Additional medical history: mass (noncancerous as per pt) on L kidney tx with partial lobectomy. mass on right kidney (cancer) tx with nephrectomy. Kidney stones treated with stent. Home oxygen since July 2019. Elevated cholesterol - Surgical History Additional Surgical History: mass (noncancerous as per pt) on L kidney tx? (nurses note) with partial lobectomy. mass on right kidney (cancer) tx with nep hrectomy - Family History Family history: other (Denies PE, DVT) - Social History Smoking Status: Former Smoker Substance Use Type: None Past History Past Medical History: COPD (Oxygen dependent), GERD, hypertension, hyperlipidemia, other (Malignant tumors, adrenal mass, degenerative disc disease) Past Surgical History: Other (Lung lobectomy, nephrectomy) Social history: denies: smoking, alcohol abuse, prescription drug abuse Family history: hypertension Medications and Allergies Allergies Allergy/AdvReac Type Severity Reaction Status Date / Time No Known Allergies Allergy Verified 11/26/19 13:09 Home Medications Medication Instructions Recorded Confirmed Last Taken Type AtorvaSTATin [Lipitor] 40 mg PO QHS 07/22/19 01/31/20 07/21/19 History Insulin Aspart (Nf) [NovoLOG 10 units SQ AC 07/22/19 01/31/20 07/21/19 History Flexpen] Insulin Detemir (Nf) [Levemir 28 unit SQ QHS 07/22/19 01/31/20 07/21/19 History Flextouch (Nf)] NIFEdipine [Nifedipine ER] 30 mg PO QDAY 07/22/19 01/31/20 07/21/19 History Aspirin [Aspirin BABY CHEW TAB] 81 mg PO QDAY #30 tab.chew 07/27/19 01/31/20 Unknown Rx lisinopriL [Zestril TAB] 1 tab PO DAILY 11/26/19 01/31/20 Unknown History Acetaminophen [Tylenol] 325 mg PO Q6H PRN #30 capsule 11/27/19 01/31/20 Unknown Rx Active Meds: Active Medications Aspirin (Baby Aspirin) 81 mg PO QDAY [facility] Last Admin: 02/01/20 09:18 Dose: 81 mg Documented by: Atorvastatin Calcium (Lipitor) 40 mg PO QHS [facility] Last Admin: 01/31/20 21:03 Dose: 40 mg Documented by: Heparin Sodium/Sodium Chloride (Heparin/ 0.45% Nacl-25,000 Unit/500 Ml) 25,000 unit in 500 mls @ 30 mls/hr IV TITR [facility]; Protocol Last Titration: 02/01/20 09:00 Dose: 0 units/hr, 0 mls/hr Documented by: Ceftriaxone Sodium (Rocephin/Ns 1 Gm/50 Ml) 1 gm in 50 mls @ 100 mls/hr IV Q24HR [facility]; Protocol Last Admin: 02/01/20 09:18 Dose: 100 mls/hr Documented by: Insulin Glargine (Lantus) 28 units SUB-Q QHS [facility] Last Admin: 01/31/20 21:03 Dose: 28 units Documented by: Insulin Human Lispro (Humalog) 10 unit SUB-Q AC [facility] Last Admin: 02/01/20 12:18 Dose: 10 unit Documented by: Insulin Human Lispro (Humalog) 0 unit SUB-Q ACHS [facility]; Protocol Last Admin: 02/01/20 12:37 Dose: Not Given Documented by: Lisinopril (Zestril) 5 mg PO DAILY [facility] Last Admin: 02/01/20 09:24 Dose: Not Given Documented by: Metoprolol Tartrate (Metoprolol) 12.5 mg PO BID [facility] Nifedipine (Procardia Xl) 30 mg PO QDAY [facility] Last Admin: 02/01/20 09:18 Dose: 30 mg Documented by: Ondansetron HCl (Zofran) 4 mg IV Q4H PRN PRN Reason: Nausea And Vomiting Physical Examination Vital signs: Vital Signs Pulse Resp Pulse Ox 126 H 20 95 01/31/20 05:58 01/31/20 05:58 01/31/20 05:58 Results - Laboratory Findings CBC and BMP: 02/02/20 03:30 02/01/20 05:04 PT/INR, D-dimer PT 13.5 Sec. (12.2-14.9) 01/31/20 06:42 INR 1.02 (0.87-1.13) 01/31/20 06:42 D-Dimer 856.13 ng/mlDDU (0-234) H 01/31/20 08:38 Abnormal lab findings: Abnormal Labs 01/31/20 01/31/20 01/31/20 06:42 06:42 06:42 MCH RDW 16.5 H Lymph % (Auto) 35.8 H Seg Neutrophils % D-Dimer 824.84 H Heparin Anti-Xa Level Carbon Dioxide 21 L Glucose 137 H POC Glucose Lactic Acid Calcium 10.6 H Magnesium 1.60 L Transferrin Lactate Dehydrogenase Total Creatine Kinase 28 L Albumin Ur Specific [place] 01/31/20 01/31/20 01/31/20 06:42 06:42 07:39 MCH RDW Lymph % (Auto) Seg Neutrophils % D-Dimer Heparin Anti-Xa Level Carbon Dioxide Glucose POC Glucose Lactic Acid 2.80 H* 3.40 H* Calcium Magnesium Transferrin Lactate Dehydrogenase Total Creatine Kinase Albumin 3.1 L Ur Specific [place] 01/31/20 01/31/20 01/31/20 08:38 08:38 08:38 MCH RDW Lymph % (Auto) Seg Neutrophils % D-Dimer 856.13 H Heparin Anti-Xa Level Carbon Dioxide Glucose POC Glucose Lactic Acid 3.20 H* Calcium Magnesium Transferrin 184 L Lactate Dehydrogenase 257 H Total Creatine Kinase Albumin Ur Specific [place] 01/31/20 01/31/20 01/31/20 10:45 11:54 16:13 MCH RDW Lymph % (Auto) Seg Neutrophils % D-Dimer Heparin Anti-Xa Level 1.59 H Carbon Dioxide Glucose POC Glucose 125 H Lactic Acid Calcium Magnesium Transferrin Lactate Dehydrogenase Total Creatine Kinase Albumin Ur Specific [place] 1.053 H 01/31/20 01/31/20 02/01/20 16:13 17:09 00:42 MCH RDW Lymph % (Auto) Seg Neutrophils % D-Dimer Heparin Anti-Xa Level 1.43 H Carbon Dioxide Glucose POC Glucose 132 H Lactic Acid 3.10 H* Calcium Magnesium Transferrin Lactate Dehydrogenase Total Creatine Kinase Albumin Ur Specific [place] 02/01/20 02/01/20 02/01/20 05:04 05:04 08:16 MCH 27 L RDW 16.5 H Lymph % (Auto) Seg Neutrophils % 72.8 H D-Dimer Heparin Anti-Xa Level 1.15 H Carbon Dioxide Glucose 104 H POC Glucose Lactic Acid Calcium 10.5 H Magnesium Transferrin Lactate Dehydrogenase Total Creatine Kinase Albumin 3.4 L Ur Specific [place] - Diagnostic Findings Chest x-ray: image reviewed (Reviewed films- metatastic disease with adenopathy and complex left plerual space) U/S of Legs: report reviewed (No DVT) Assessment and Plan Acute on chronic hypoxic respiratory failure; Right sided acute pulmonary embolism Malignant Left loculated pleural effusion- complex pleural space Metastatic disease-Pancoast tumor Lactic acidosis Morbid obesity COPD Hypertension Diabetes mellitus CT angiogram of the chest: 1. Positive critical value with new small right-sided pulmonary emboli. 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 3. Large malignant left loculated pleural effusion has increased in size and causes downward and medial mass affect upon the left hemidiaphragm with displacement of spleen and kidney medially. 4. Bilateral adrenal and left rib metastases, unchanged -Supplemental oxygen to keep O2 sats >90% -BIPAp as clinically indicated -Change anticoagulation from IV heparin to enoxaparin- patient has carcinoma, enoxaparin is preferred, if there are no contraindication On discharge it is preferable that she remains on enoxaparin and this will be lifelong as she has metastatic disease -Bronchodilators -Treat empirically for AE-COPD -Get echocardiogram, in view of syncope and metastatic disease with involvement of the great vessels. CT head was negative. -MRI would be useful to evaluate for metastatic disease -Lactic acidosis could be secondary to tumor burden. No clinical evidence to suggest that she has sepsis/septic shock or hypoperfusion from any other reason -Agree with anticoagulation -The loculated pleural space is complex and will need CTSx to address it. -Accucheck [facility] glycemic control -ABG, CXR as needed -Chronic home COPD medications -Glycemic control, blood pressure management per primary -Short course of antibiotics -PT/OT to evaluate and treat -Oncology consult, this is metastatic malignant disease Goals of care need to addressed with the patient. She is currently full code in the event of cardio pulmonary arrest. Discussed care plan with Dr. Tapia. Life threatening disease- Acute on chronic hypoxemic respiratory failure with syncope and lactic acidosis Mortality/Morbidity- High Complexity of medical decision making -High Critical care time 31 minutes
--- NOTE | 2020-02-01 18:24 | Hem/Onc Consultation ---
History of Present Illness - Reason for Consult Consult date: 02/01/20 pancoast? Requesting physician: KARIE TAPIA - History of Present Illness 64-year-old morbidly obese female patient with significant past medical history of left lung mass status post partial lobectomy many years ago right renal tumor status post right nephrectomy, hypertension diabetes mellitus , dyslipidemia, adrenal mass, COPD home oxygen dependent, degenerative disc disease,m, Presented to the emergency room with worsening shortness of breath and syncopal episode. h/o chest pain and mild cough Denies any nausea vomiting or abdominal pain, denies headache or dizziness, complains of generalized weakness Initial work-up in the emergency room revealed elevated D-dimers subsequently had CTA chest, positive for PE CT chest shows possible pancoast Pl effusion+ Past History Past Medical History: COPD (Oxygen dependent), GERD, hypertension, hyperlipidemia, other (Malignant tumors, adrenal mass, degenerative disc diseas e) Past Surgical History: Other (Lung lobectomy, nephrectomy) Social history: denies: smoking, alcohol abuse, prescription drug abuse Family history: hypertension Medications and Allergies Allergies Allergy/AdvReac Type Severity Reaction Status Date / Time No Known Allergies Allergy Verified 11/26/19 13:09 Home Medications Medication Instructions Recorded Confirmed Last Taken Type AtorvaSTATin [Lipitor] 40 mg PO QHS 07/22/19 01/31/20 07/21/19 History Insulin Aspart (Nf) [NovoLOG 10 units SQ AC 07/22/19 01/31/20 07/21/19 History Flexpen] Insulin Detemir (Nf) [Levemir 28 unit SQ QHS 07/22/19 01/31/20 07/21/19 History Flextouch (Nf)] NIFEdipine [Nifedipine ER] 30 mg PO QDAY 07/22/19 01/31/20 07/21/19 History Aspirin [Aspirin BABY CHEW TAB] 81 mg PO QDAY #30 tab.chew 07/27/19 01/31/20 Unknown Rx lisinopriL [Zestril TAB] 1 tab PO DAILY 11/26/19 01/31/20 Unknown History Acetaminophen [Tylenol] 325 mg PO Q6H PRN #30 capsule 11/27/19 01/31/20 Unknown Rx Active Meds: Active Medications Aspirin (Baby Aspirin) 81 mg PO QDAY [facility] Last Admin: 02/01/20 09:18 Dose: 81 mg Documented by: Atorvastatin Calcium (Lipitor) 40 mg PO QHS [facility] Last Admin: 01/31/20 21:03 Dose: 40 mg Documented by: Heparin Sodium/Sodium Chloride (Heparin/ 0.45% Nacl-25,000 Unit/500 Ml) 25,000 unit in 500 mls @ 30 mls/hr IV TITR [facility]; Protocol Last Titration: 02/01/20 11:10 Dose: 900 units/hr, 18 mls/hr Documented by: Ceftriaxone Sodium (Rocephin/Ns 1 Gm/50 Ml) 1 gm in 50 mls @ 100 mls/hr IV Q24HR [facility]; Protocol Last Admin: 02/01/20 09:18 Dose: 100 mls/hr Documented by: Insulin Glargine (Lantus) 28 units SUB-Q QHS [facility] Last Admin: 01/31/20 21:03 Dose: 28 units Documented by: Insulin Human Lispro (Humalog) 10 unit SUB-Q [facility] Last Admin: 02/01/20 17:19 Dose: Not Given Documented by: Insulin Human Lispro (Humalog) 0 unit SUB-Q ACHS [facility]; Protocol Last Admin: 02/01/20 17:19 Dose: Not Given Documented by: Lisinopril (Zestril) 5 mg PO DAILY [facility] Last Admin: 02/01/20 09:24 Dose: Not Given Documented by: Metoprolol Tartrate (Metoprolol) 12.5 mg PO BID [facility] Nifedipine (Procardia Xl) 30 mg PO QDAY [facility] Last Admin: 02/01/20 09:18 Dose: 30 mg Documented by: Ondansetron HCl (Zofran) 4 mg IV Q4H PRN PRN Reason: Nausea And Vomiting Exam - Exam Narrative Exam: reviewed notes - Constitutional Vitals: Last Vital Signs Temp 98.3 F 02/01/20 16:05 Pulse 114 H 02/01/20 14:00 Resp 18 02/01/20 16:05 BP 121/79 02/01/20 16:05 Pulse Ox 98 02/01/20 12:52 Results - Labs lab Results: Laboratory Results - last 24 hr 01/31/20 01/31/20 02/01/20 21:15 23:01 00:42 WBC RBC Hgb Hct MCV MCH MCHC RDW Plt Count Lymph % (Auto) [place] % (Auto) Eos % (Auto) Baso % (Auto) Lymph # [place] # Eos # Baso # Seg Neutrophils % Seg Neutrophils # Heparin Anti-Xa Level 1.43 H Sodium Potassium Chloride Carbon Dioxide Anion Gap BUN Creatinine Estimated GFR BUN/Creatinine Ratio Glucose POC Glucose 79 Lactic Acid 1.70 Calcium Total Bilirubin AST ALT Alkaline Phosphatase Total Protein Albumin Albumin/Globulin Ratio 02/01/20 02/01/20 02/01/20 05:04 05:04 07:52 WBC 7.0 RBC 4.06 Hgb 10.9 Hct 34.2 MCV 84 MCH 27 L MCHC 32 RDW 16.5 H Plt Count 232 Lymph % (Auto) 20.4 [place] % (Auto) 5.7 Eos % (Auto) 0.2 Baso % (Auto) 0.9 Lymph # 1.4 [place] # 0.4 Eos # 0.0 Baso # 0.1 Seg Neutrophils % 72.8 H Seg Neutrophils # 5.1 Heparin Anti-Xa Level Sodium 141 Potassium 3.9 Chloride 106.0 Carbon Dioxide 22 Anion Gap 17 BUN 10 Creatinine 0.8 Estimated GFR > 60 BUN/Creatinine Ratio 13 Glucose 104 H POC Glucose 101 Lactic Acid Calcium 10.5 H Total Bilirubin 0.30 AST 14 ALT 16 Alkaline Phosphatase 111 Total Protein 6.9 Albumin 3.4 L Albumin/Globulin Ratio 1.0 02/01/20 02/01/20 02/01/20 08:16 12:39 16:15 WBC RBC Hgb Hct MCV MCH MCHC RDW Plt Count Lymph % (Auto) [place] % (Auto) Eos % (Auto) Baso % (Auto) Lymph # [place] # Eos # Baso # Seg Neutrophils % Seg Neutrophils # Heparin Anti-Xa Level 1.15 H Sodium Potassium Chloride Carbon Dioxide Anion Gap BUN Creatinine Estimated GFR BUN/Creatinine Ratio Glucose POC Glucose 79 78 Lactic Acid Calcium Total Bilirubin AST ALT Alkaline Phosphatase Total Protein Albumin Albumin/Globulin Ratio 02/01/20 18:17 WBC RBC Hgb Hct MCV MCH MCHC RDW Plt Count Lymph % (Auto) [place] % (Auto) Eos % (Auto) Baso % (Auto) Lymph # [place] # Eos # Baso # Seg Neutrophils % Seg Neutrophils # Heparin Anti-Xa Level Sodium Potassium Chloride Carbon Dioxide Anion Gap BUN Creatinine Estimated GFR BUN/Creatinine Ratio Glucose POC Glucose 117 H Lactic Acid Calcium Total Bilirubin AST ALT Alkaline Phosphatase Total Protein Albumin Albumin/Globulin Ratio Assessment and Plan # Left pl effusion - reportede as malignant # left pancoast tumor # small PE # Acute on chronic hypoxic respiratory failure; - Home oxygen dependent, CT angiogram of the chest: 1. Positive critical value with new small right-sided pulmonary emboli. 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 3. Large malignant left loculated pleural effusion has increased in size and causes downward and medial mass affect upon the left hemidiaphragm with displacement of spleen and kidney medially. 4. Bilateral adrenal and left rib metastases, unchanged # Type 2 diabetes mellitus; being followed by other MDs # Hypertension; moderate control - being followed by other MDs # Dyslipidemia; # Morbid obesity - h/o nephrectomy and now radiologically mets pt is o2 dependent hence lung IX becomes challenging without tissue diagnosis - treatment is difficult CT abdo was ordered and done - no liver lesions will call XRT - d/w dr ortiz - Patient Problems (1) Pulmonary embolism Current Visit: Yes Status: Acute Qualifiers: Pulmonary embolism type: unspecified Chronicity: acute Acute cor pulmonale presence: without acute cor pulmonale Qualified Code(s): I26.99 - Other pulmonary embolism without acute cor pulmonale
[2020-02-01] MEDS: METOPROLOL TARTRATE 25 MG TAB PO SCH (21:51)
[2020-02-01] MEDS: INSULIN GLARGINE 100 UNITS/ML SUB-Q SCH (21:53)
[2020-02-02 04:20] LABS: Hematocrit 36.1 % (30.3-42.9); Hemoglobin 11.6 gm/dl (10.1-14.3)
[2020-02-02] MEDS: INSULIN LISPRO 100 UNIT/ML SUB-Q SCH ×7 (08:16→21:48)
[2020-02-02] MEDS: HEPARIN/ 0.45% NACL DRIP 25,000 UNIT/500 ML BAG IV SCH (08:17)
[2020-02-02] MEDS: ASPIRIN 81 MG TAB CHEW PO SCH (09:07)
[2020-02-02] MEDS: NIFEdipine XL 30 MG TAB PO SCH (09:08)
[2020-02-02] MEDS: METOPROLOL TARTRATE 25 MG TAB PO SCH ×2 (09:08→21:47)
[2020-02-02] MEDS: cefTRIAXone/NS 1 GM/50 ML 1 GM/50 ML BAG IV SCH (09:09)
[2020-02-02] MEDS: LISINOPRIL 5 MG TAB PO SCH (09:09)
[2020-02-02] MEDS ORDERED: ALPRAZolam 0.25 MG TAB PO PRN (10:48)
--- NOTE | 2020-02-02 10:54 | Progress Note ---
Assessment and Plan Assessment and plan: --Acute on chronic hypoxic respiratory failure; Home oxygen dependent, oxygen titrate O2 sats more than 90% BiPAP as needed, nebulizers, IV steroids, IV antibiotics Pulmonary consult CT angiogram of the chest: 1. Positive critical value with new small right-sided pulmonary emboli. 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 3. Large malignant left loculated pleural effusion has increased in size and causes downward and medial mass affect upon the left hemidiaphragm with displacement of spleen and kidney medially. 4. Bilateral adrenal and left rib metastases, unchanged --Acute pulmonary embolism; With elevated D-dimers, heparin drip changed to Lovenox Oxygen titrate O2 sats more than 90%, supportive care lower extremity venous Doppler negative for DVT --Metastatic Pancoast tumor; on CTA chest Supportive care, pulmonary,f/u oncology recommendations Get old records from the past --Malignant left pleural effusion; Supportive care, thoracentesis if needed --Syncopal episode; Fall precautions, syncope work-up, check orthostats Carotid Doppler echocardiogramn CT scan negative for acute abnormality --Lactic acidosis; no evidence of infection at this point Empiric antibiotics, follow cultures --Possible UTI; empiric antibiotics Follow cultures --Hypomagnesemia; replenish per protocol with mag sulfate Monitor electrolytes --Moderate malnutrition/hypoalbuminemia Due to underlying disease process Nutrition supplements and supportive care --Type 2 diabetes mellitus; Accu-Chek sliding scale coverage ADA diet Long-acting insulin as needed --Hypertension; moderate control Resume home antihypertensives and PRN medications --Dyslipidemia; resume statin --Morbid obesity; BMI 40.1 Patient may need to reduce weight when medically stable --DVT prophylax; patient is on heparin drip --Full CODE STATUS; Monitor closely and adjust management as needed Plan of care reviewed with the patient and her nurse Hematology oncology and pulmonary evaluation and recommendations Noted and appreciated History Interval history: Patient seen and examined this morning at the bedside at the bedside Patient's chart medications imaging studies Patient feels slightly better still complains of shortness of breath Vital signs noted Hospitalist Physical - Constitutional Vitals: Temp Pulse Resp BP Pulse Ox 98.3 F 99 H 19 138/82 96 02/02/20 08:09 02/02/20 10:49 02/02/20 08:55 02/02/20 09:09 02/02/20 09:06 General appearance: Present: mild distress, well-nourished, obese (Morbidly obese) - EENT Eyes: Present: PERRL - Neck Neck: Present: supple, normal ROM - Respiratory Respiratory effort: normal Respiratory: bilateral: diminished, rhonchi, negative: rales, wheezing - Cardiovascular Rhythm: regular Heart Sounds: Present: S1 & S2 - Extremities Extremities: no ischemia, No edema Peripheral Pulses: within normal limits - Abdominal General gastrointestinal: soft, non-tender, non-distended, normal bowel sounds - Integumentary Integumentary: Present: clear, warm - Psychiatric Psychiatric: appropriate mood/affect, cooperative - Neurologic Neurologic: moves all extremities ELI score - Eli Score Age > 65: (0) No Aspirin use within the Past 7 Days: (0) No 3 or more CAD Risk Factors: (1) Yes 2 or more Angina events in past 24 hrs: (0) No Known CAD with more than 50% Stenosis: (0) No Elevated Cardiac Markers: (0) No ST Deviation Greater than 0.5mm: (0) No ELI Score: 1 Results - Labs CBC & Chem 7: 02/02/20 03:30 02/01/20 05:04 Labs: Laboratory Last Values WBC 7.0 K/mm3 (4.5-11.0) 02/01/20 05:04 RBC 4.06 M/mm3 (3.65-5.03) 02/01/20 05:04 Hgb 11.6 gm/dl (10.1-14.3) 02/02/20 03:30 Hct 36.1 % (30.3-42.9) 02/02/20 03:30 MCV 84 fl (79-97) 02/01/20 05:04 MCH 27 pg (28-32) L 02/01/20 05:04 MCHC 32 % (30-34) 02/01/20 05:04 RDW 16.5 % (13.2-15.2) H 02/01/20 05:04 Plt Count 225 K/mm3 (140-440) 02/02/20 03:30 Lymph % (Auto) 20.4 % (13.4-35.0) 02/01/20 05:04 [place] % (Auto) 5.7 % (0.0-7.3) 02/01/20 05:04 Eos % (Auto) 0.2 % (0.0-4.3) 02/01/20 05:04 Baso % (Auto) 0.9 % (0.0-1.8) 02/01/20 05:04 Lymph # 1.4 K/mm3 (1.2-5.4) 02/01/20 05:04 [place] # 0.4 K/mm3 (0.0-0.8) 02/01/20 05:04 Eos # 0.0 K/mm3 (0.0-0.4) 02/01/20 05:04 Baso # 0.1 K/mm3 (0.0-0.1) 02/01/20 05:04 Seg Neutrophils % 72.8 % (40.0-70.0) H 02/01/20 05:04 Seg Neutrophils # 5.1 K/mm3 (1.8-7.7) 02/01/20 05:04 PT 13.5 Sec. (12.2-14.9) 01/31/20 06:42 INR 1.02 (0.87-1.13) 01/31/20 06:42 APTT 25.6 Sec. (24.2-36.6) 01/31/20 06:42 D-Dimer 856.13 ng/mlDDU (0-234) H 01/31/20 08:38 Heparin Anti-Xa Level 0.56 U.I./ml (0.3-0.7) 02/01/20 16:43 Sodium 141 mmol/L (137-145) 02/01/20 05:04 Potassium 3.9 mmol/L (3.6-5.0) 02/01/20 05:04 Chloride 106.0 mmol/L (98-107) 02/01/20 05:04 Carbon Dioxide 22 mmol/L (22-30) 02/01/20 05:04 Anion Gap 17 mmol/L 02/01/20 05:04 BUN 10 mg/dL (7-17) 02/01/20 05:04 Creatinine 0.8 mg/dL (0.7-1.2) 02/01/20 05:04 Estimated GFR > 60 ml/min 02/01/20 05:04 BUN/Creatinine Ratio 13 % 02/01/20 05:04 Glucose 104 mg/dL (65-100) H 02/01/20 05:04 POC Glucose 118 (70-105) H 02/02/20 08:17 Lactic Acid 1.70 mmol/L (0.7-2.0) 01/31/20 23:01 Calcium 10.5 mg/dL (8.4-10.2) H 02/01/20 05:04 Magnesium 1.60 mg/dL (1.7-2.3) L 01/31/20 06:42 Transferrin 184 mg/dl (192-382) L 01/31/20 08:38 Total Bilirubin 0.30 mg/dL (0.1-1.2) 02/01/20 05:04 Direct Bilirubin < 0.2 mg/dL (0-0.2) 01/31/20 06:42 AST 14 units/L (5-40) 02/01/20 05:04 ALT 16 units/L (7-56) 02/01/20 05:04 Alkaline Phosphatase 111 units/L (35-129) 02/01/20 05:04 Lactate Dehydrogenase 257 units/L (91-180) H 01/31/20 08:38 Total Creatine Kinase 28 units/L (30-135) L 01/31/20 06:42 CK-MB (CK-2) < 1.0 ng/mL (0.0-4.0) 01/31/20 06:42 CK-MB (CK-2) Rel Index 3.5 (0-4) 01/31/20 06:42 Troponin T < 0.010 ng/mL (0.00-0.029) 01/31/20 09:33 NT-Pro-B Natriuret Pep 121.1 pg/mL (0-900) 01/31/20 06:42 Total Protein 6.9 g/dL (6.3-8.2) 02/01/20 05:04 Albumin 3.4 g/dL (3.9-5) L 02/01/20 05:04 Albumin/Globulin Ratio 1.0 % 02/01/20 05:04 Urine Color Yellow (Yellow) 01/31/20 10:45 Urine Turbidity Clear (Clear) 01/31/20 10:45 Urine pH 5.0 (5.0-7.0) 01/31/20 10:45 Ur Specific [place] 1.053 (1.003-1.030) H 01/31/20 10:45 Urine Protein <15 mg/dl mg/dL (Negative) 01/31/20 10:45 Urine Glucose (UA) Neg mg/dL (Negative) 01/31/20 10:45 Urine Ketones Tr mg/dL (Negative) 01/31/20 10:45 Urine Blood Neg (Negative) 01/31/20 10:45 Urine Nitrite Neg (Negative) 01/31/20 10:45 Urine Bilirubin Neg (Negative) 01/31/20 10:45 Urine Urobilinogen < 2.0 mg/dL (<2.0) 01/31/20 10:45 Ur Leukocyte Esterase Tr (Negative) 01/31/20 10:45 Urine WBC (Auto) < 1.0 /HPF (0.0-6.0) 01/31/20 10:45 Urine RBC (Auto) 2.0 /HPF (0.0-6.0) 01/31/20 10:45 U Epithel Cells (Auto) 8.0 /HPF (0-13.0) 01/31/20 10:45 Urine Bacteria (Auto) 1+ /HPF (Negative) 01/31/20 10:45 Urine Mucus Few /HPF 01/31/20 10:45 Microbiology: Microbiology 01/31/20 06:42 Peripheral/Venous Blood Culture - Preliminary NO GROWTH AFTER 24 HOURS 01/31/20 06:42 Peripheral/Venous Blood Culture - Preliminary NO GROWTH AFTER 24 HOURS 01/31/20 Unknown Urine,Clean Catch Urine Culture - Preliminary NO GROWTH AFTER 24 HOURS Torres/IV: Voiding Method Bedside Commode IV Catheter Type [Right INT / Saline Lock Antecubital] IV Catheter Type [Right INT / Saline Lock Forearm] Active Medications - Current Medications Current Medications: Generic Name Dose Route Start Last Admin Trade Name Freq PRN Reason Stop Dose Admin Alprazolam 0.25 mg 02/02/20 10:48 Xanax PO Q8H PRN Anxiety Aspirin 81 mg 02/01/20 10:00 02/02/20 09:07 Baby Aspirin PO 81 mg QDAY RODRIGUE Administration Atorvastatin Calcium 40 mg 01/31/20 22:00 02/01/20 21:51 Lipitor PO 40 mg QHS [facility] Administration Enoxaparin Sodium 100 mg 02/02/20 22:00 Enoxaparin SUB-Q Q12HR [facility] Ceftriaxone Sodium 1 gm in 50 mls @ 100 mls/hr 01/31/20 19:30 02/02/20 09:09 Rocephin/Ns 1 Gm/50 Ml IV 100 mls/hr Q24HR RODRIGUE Administration Protocol Insulin Glargine 28 units 01/31/20 22:00 02/01/20 21:53 Lantus SUB-Q 28 units QHS [facility] Administration Insulin Human Lispro 10 unit 01/31/20 11:30 02/02/20 08:16 Humalog SUB-Q 10 unit AC RODRIGUE Administration Insulin Human Lispro 0 unit 01/31/20 11:30 02/02/20 08:16 Humalog SUB-Q Not Given ACHS [facility] Protocol Lisinopril 5 mg 02/01/20 10:00 02/02/20 09:09 Zestril PO 5 mg DAILY RODRIGUE Administration Metoprolol Tartrate 12.5 mg 02/01/20 22:00 02/02/20 09:08 Metoprolol PO 12.5 mg BID RODRIGUE Administration Nifedipine 30 mg 01/31/20 12:00 02/02/20 09:08 Procardia Xl PO 30 mg QDAY [facility] Administration Ondansetron HCl 4 mg 01/31/20 12:51 Zofran IV Q4H PRN Nausea And Vomiting
--- NOTE | 2020-02-02 13:19 | Progress Note ---
Assessment and Plan Acute on chronic hypoxic respiratory failure; Right sided acute pulmonary embolism Malignant Left loculated pleural effusion- complex pleural space Metastatic disease-Pancoast tumor Lactic acidosis Morbid obesity COPD Hypertension Diabetes mellitus -The loculated pleural space is complex and will need CTSx to address it. - continue supplemental oxygen to keep O2 sats >90% - follow oncology recommendations - prn analgesia per pain score - NIV prn as clinically indicated - continue full anticoagulation with Enoxaparin - bronchodilators with pulmonary hygiene per RT - continue empiric AE-COPD treatment including empiric CAP AB's - follow echocardiogram - MRI would be useful to evaluate for metastatic disease - Lactic acidosis could be secondary to tumor burden. No clinical evidence to suggest that she has sepsis/septic shock or hypoperfusion from any other reason - continue accucheck wtih glycemic control p[er SSI for target BG < 180 mg/dl - ABG, CXR as needed - Chronic home COPD medications - PT/OT to evaluate and treat - continue other care per attending / other consultants .... re-evaluate in am & prn Subjective Date of service: 02/02/20 Principal diagnosis: Ac on Ch hypoxemic resp failure; Acute P.E.; Malignant Effusion; DM II Interval history: Patient is seen today for: Ac on Ch hypoxemic resp failure; Acute P.E.; Malignant L. Pleural effusion; Morbid obesity; HTN; Diabetes mellitus Seen and examined at bedside; 24hour events reviewed; nursing and respiratory care staff consulted; no adverse overnight events reported to me; resting in bed; still SOB and hypoxemic but not far from baseline home oxygen levels; she thinks she has had a thoracentesis done before; awaiting heme-onc evaluation Objective Vital Signs - 12hr 02/02/20 02/02/20 02/02/20 04:13 08:09 08:55 Temperature 98.5 F 98.3 F Pulse Rate 105 H 112 H Pulse Rate [ 106 H From Monitor] Respiratory 20 19 19 Rate Blood Pressure 115/83 137/95 O2 Sat by Pulse 96 94 Oximetry 02/02/20 02/02/20 02/02/20 09:06 09:08 09:09 Temperature Pulse Rate 112 H 116 H 112 H Pulse Rate [ From Monitor] Respiratory Rate Blood Pressure 138/82 138/82 138/82 O2 Sat by Pulse 96 Oximetry 02/02/20 10:49 Temperature Pulse Rate 99 H Pulse Rate [ From Monitor] Respiratory Rate Blood Pressure O2 Sat by Pulse Oximetry Constitutional: no acute distress, other (elderly looking obese AAF, normoce phalic with mildly increased respiratopry effort at rest) Eyes: non-icteric ENT: oropharynx moist Neck: supple, no lymphadenopathy, no JVD Effort: mildly labored Ascultation: Bilateral: diminished breath sounds (L>R), rhonchi (L>R) Percussion: Left: not dull Cardiovascular: regular rate and rhythm Gastrointestinal: normoactive bowel sounds, soft, non-tender, non-distended Integumentary: normal Extremities: no cyanosis, no edema, pulses normal, no ischemia or petechiae Neurologic: normal mental status, non-focal exam, pupils equal and round, motor strength normal and Psychiatric: mood appropriate, affect normal CBC and BMP: 02/02/20 03:30 02/01/20 05:04 ABG, PT/INR, D-dimer: PT/INR, D-dimer PT 13.5 Sec. (12.2-14.9) 01/31/20 06:42 INR 1.02 (0.87-1.13) 01/31/20 06:42 D-Dimer 856.13 ng/mlDDU (0-234) H 01/31/20 08:38 Abnormal lab findings: Abnormal Labs 01/31/20 01/31/20 01/31/20 06:42 06:42 06:42 MCH RDW 16.5 H Lymph % (Auto) 35.8 H Seg Neutrophils % D-Dimer 824.84 H Heparin Anti-Xa Level Carbon Dioxide 21 L Glucose 137 H POC Glucose Lactic Acid Calcium 10.6 H Magnesium 1.60 L Transferrin Lactate Dehydrogenase Total Creatine Kinase 28 L Albumin Ur Specific [place] 01/31/20 01/31/20 01/31/20 06:42 06:42 07:39 MCH RDW Lymph % (Auto) Seg Neutrophils % D-Dimer Heparin Anti-Xa Level Carbon Dioxide Glucose POC Glucose Lactic Acid 2.80 H* 3.40 H* Calcium Magnesium Transferrin Lactate Dehydrogenase Total Creatine Kinase Albumin 3.1 L Ur Specific [place] 01/31/20 01/31/20 01/31/20 08:38 08:38 08:38 MCH RDW Lymph % (Auto) Seg Neutrophils % D-Dimer 856.13 H Heparin Anti-Xa Level Carbon Dioxide Glucose POC Glucose Lactic Acid 3.20 H* Calcium Magnesium Transferrin 184 L Lactate Dehydrogenase 257 H Total Creatine Kinase Albumin Ur Specific [place] 01/31/20 01/31/20 01/31/20 10:45 11:54 16:13 MCH RDW Lymph % (Auto) Seg Neutrophils % D-Dimer Heparin Anti-Xa Level 1.59 H Carbon Dioxide Glucose POC Glucose 125 H Lactic Acid Calcium Magnesium Transferrin Lactate Dehydrogenase Total Creatine Kinase Albumin Ur Specific [place] 1.053 H 01/31/20 01/31/20 02/01/20 16:13 17:09 00:42 MCH RDW Lymph % (Auto) Seg Neutrophils % D-Dimer Heparin Anti-Xa Level 1.43 H Carbon Dioxide Glucose POC Glucose 132 H Lactic Acid 3.10 H* Calcium Magnesium Transferrin Lactate Dehydrogenase Total Creatine Kinase Albumin Ur Specific [place] 02/01/20 02/01/20 02/01/20 05:04 05:04 08:16 MCH 27 L RDW 16.5 H Lymph % (Auto) Seg Neutrophils % 72.8 H D-Dimer Heparin Anti-Xa Level 1.15 H Carbon Dioxide Glucose 104 H POC Glucose Lactic Acid Calcium 10.5 H Magnesium Transferrin Lactate Dehydrogenase Total Creatine Kinase Albumin 3.4 L Ur Specific [place] 02/01/20 02/02/20 18:17 08:17 MCH RDW Lymph % (Auto) Seg Neutrophils % D-Dimer Heparin Anti-Xa Level Carbon Dioxide Glucose POC Glucose 117 H 118 H Lactic Acid Calcium Magnesium Transferrin Lactate Dehydrogenase Total Creatine Kinase Albumin Ur Specific [place] CT scan - chest: image reviewed (loculated left pleural effusion) Allied health notes reviewed: nursing
--- NOTE | 2020-02-02 14:21 | Cat Scan Report ---
CT ABDOMEN AND PELVIS WITH CONTRAST INDICATION / CLINICAL INFORMATION: Without convincing evidence of a metastatic lesion tumor. TECHNIQUE: Axial CT images were obtained through the abdomen and pelvis after IV contrast. All CT scans at this location are performed using CT dose reduction for ALARA by means of automated exposure control. COMPARISON: None available. FINDINGS: LOWER CHEST: Pleural-parenchymal changes left hemithorax again noted as compared to CTA of the chest dated 01/31/2020. Prominent bronchovascular markings right base LIVER: The liver is slightly heterogeneous without definite evidence of a discrete mass GALLBLADDER: No significant abnormality. BILE DUCTS: No significant abnormality. PANCREAS: No significant abnormality. SPLEEN: No significant abnormality. ADRENALS: Persistent bilateral adrenal enlargement right greater than left unchanged as compared to p revious exam 01/31/2020 consistent with metastatic disease RIGHT KIDNEY and URETER: Previous nephrectomy LEFT KIDNEY and URETER: No significant abnormality. STOMACH and SMALL BOWEL: No significant abnormality. COLON: No significant abnormality. APPENDIX: No significant abnormality. PERITONEUM: No free fluid. No free air. No fluid collection. LYMPH NODES: No significant adenopathy. AORTA and ARTERIES: No significant abnormality. IVC and VEINS: No significant abnormality. URINARY BLADDER: No significant abnormality. REPRODUCTIVE ORGANS: Previous hysterectomy ADDITIONAL FINDINGS: None. SKELETAL SYSTEM: No significant abnormality. IMPRESSION: 1. Complex parenchymal changes left hemithorax 2. Bilateral adrenal masses consistent with metastatic disease 3. Heterogeneous liver without definite evidence of a focal lesion 4. Previous right nephrectomy Signer Name: Kade Galeas MD Signed: 02/02/2020 2:17 PM Workstation Name: [id number]
[2020-02-02] MEDS: ENOXAPARIN 100 MG/1 ML INJ SUB-Q SCH (21:48)
[2020-02-02] MEDS: INSULIN GLARGINE 100 UNITS/ML SUB-Q SCH (21:52)
[2020-02-03] MEDS: INSULIN LISPRO 100 UNIT/ML SUB-Q SCH ×7 (08:14→21:11)
[2020-02-03] MEDS: ASPIRIN 81 MG TAB CHEW PO SCH (09:43)
[2020-02-03] MEDS: NIFEdipine XL 30 MG TAB PO SCH (09:43)
[2020-02-03] MEDS: METOPROLOL TARTRATE 25 MG TAB PO SCH ×2 (09:43→21:10)
[2020-02-03] MEDS: ENOXAPARIN 100 MG/1 ML INJ SUB-Q SCH ×2 (09:43→21:11)
[2020-02-03] MEDS: cefTRIAXone/NS 1 GM/50 ML 1 GM/50 ML BAG IV SCH (09:43)
[2020-02-03] MEDS: LISINOPRIL 5 MG TAB PO SCH (09:44)
--- NOTE | 2020-02-03 13:25 | Consultation ---
RADIATION ONCOLOGY CONSULTATION NOTE REFERRING DOCTOR: Dr. Regla Yoo. CHIEF COMPLAINT: " PROFILE: This is a 64-year-old woman with probable stage IV, left lung Pancoast tumor, referred for radiation therapy. CONCLUSION: 1. 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 2. Reported history of stage I carcinoma of the left upper lung, status post left thoracotomy in 2016 at [facility]. 3. History of morbid obesity. 4. History of chronic obstructive pulmonary disease. 5. Gastroesophageal reflux disease. 6. Hypertension. 7. Hyperlipidemia. 8. Right nephrectomy for right renal tumor. Reports not available. RECOMMENDATION: We agree with recommendation to proceed forward with palliative radiotherapy to the left upper lung mass. We will plan to deliver dose of 30 Gy in 10 fractions using megavoltage radiation. She will also be arranged for a biopsy. ASSESSMENT: This is a very pleasant 64-year-old woman who presented to the Emergency Room with progressive dyspnea and a syncope episode. She has a previous history according to the patient of lung cancer treated with surgery at [facility] in 2016. She underwent a CT scan of the chest and this revealed evidence of mediastinal and left axillary adenopathy as well as extensive left right-sided pleural thickening with soft tissue encasement of the left subclavian artery characteristic for neoplasm secondary to a Pancoast tumor. There was a large malignant left loculated pleural effusion and has mass effect upon the left hemidiaphragm. There is evidence of bilateral and left rib metastasis. CT scan of the abdomen reveals a 4.8 cm right adrenal mass consistent with a metastasis. There is a 2.2 cm left adrenal metastasis. There is a chronic left fourth nonunited rib fracture with osseous destruction of the left fifth and sixth lateral ribs and left 9th through 11th posterior ribs consistent with metastatic disease. There is a new small right-sided pulmonary emboli. The patient is now referred for consideration of palliative radiotherapy. Clinically, the patient has significant left upper posterior back pain radiating to the left upper extremity with left upper extremity edema. She notes moderate dyspnea. Denies hemoptysis. PAST MEDICAL HISTORY: 1. Reported history of carcinoma of the lung in 2016, treated with surgery at [facility]. Reports not available. 2. Chronic obstructive pulmonary disease. 3. Morbid obesity. 4. History of tobacco use. 5. Hypertension. 6. Hyperlipidemia. SOCIAL HISTORY: History of tobacco use. Denies alcohol. FAMILY HISTORY: Hypertension. MEDICATIONS: Lipitor, heparin, insulin, lisinopril. ALLERGIES: None known. REVIEW OF SYSTEMS: CONSTITUTIONAL: She is weak and tired. Denies weight loss, fever or chills. HEENT: Denies any headache, double vision, blurry vision, hoarseness. RESPIRATORY: She has moderate dyspnea, left upper posterior chest pain. Denies hemoptysis. CARDIOVASCULAR: Denies palpitations, orthopnea. GASTROINTESTINAL: Denies nausea, vomiting, diarrhea, constipation, rectal bleeding. GENITOURINARY: Denies incontinence, dysuria, hematuria. EXTREMITIES: Denies weakness. She does have left upper extremity pain, swelling. NEUROLOGIC: She has pain in her left upper extremity. PHYSICAL EXAMINATION: GENERAL: She is a chronically ill obese woman in no acute distress. VITAL SIGNS: Blood pressure 121/79, pulse is 98, respirations 18. She is afebrile, pulse ox is 98%, ECOG equals 2. Pain equals 5/10. HEENT: Normocephalic, atraumatic. Eyes were clear. NECK: Full. LUNGS: Decreased breath sounds in the left lung field. Right lung, weak inspiratory effort. BACK: No spinal or CVA tenderness. She is tender to palpation over the left posterior rib cage. CARDIOVASCULAR: Faint heart tones, regular rate and rhythm. ABDOMEN: Obese. No palpable masses. EXTREMITIES: No clubbing or cyanosis. She has 2+ edema of her left upper extremity. NEUROLOGIC: She answers questions appropriately. Cranial nerves 2-12 are grossly intact. MOTOR AND SENSORY: Cerebellar exam intact. This unfortunate 64-year-old -[place] woman who has probable stage IV carcinoma of the left upper lung with extensive mediastinal, axillary adenopathy, a loculated left pleural effusion. She could have a Pancoast tumor with evidence of brachial plexus involvement with left upper extremity, shoulder pain. She has rib destruction. We agree with recommendation to deliver palliative radiotherapy. We will plan to deliver dose of 30 Gy in 10 fractions. Risk of radiation including fatigue, cough, fever, pneumonitis, bone marrow suppression and treatment without pathology and risk associated have been discussed with the patient. We will begin the therapy shortly. [facility]# [id number] NELSON/KAYODE
--- NOTE | 2020-02-03 15:24 | Progress Note ---
Assessment and Plan Acute on chronic hypoxemic respiratory failure; Right sided acute pulmonary embolism Malignant Left loculated pleural effusion- complex pleural space Metastatic disease-Pancoast tumor Lactic acidosis Morbid obesity COPD Hypertension Diabetes mellitus -The loculated pleural space is complex and will need CTSx to address it. - continue supplemental oxygen to keep O2 sats >90% - follow oncology recommendations - prn analgesia per pain score - NIV prn as clinically indicated - continue full anticoagulation with Enoxaparin - bronchodilators with pulmonary hygiene per RT - continue empiric AE-COPD treatment including empiric CAP AB's - follow echocardiogram - MRI would be useful to evaluate for metastatic disease - Lactic acidosis could be secondary to tumor burden. No clinical evidence to suggest that she has sepsis/septic shock or hypoperfusion from any other reason - continue accucheck wtih glycemic control per SSI for target BG < 180 mg/dl - ABG, CXR as needed - Chronic home COPD medications - PT/OT to evaluate and treat - continue other care per attending / other consultants .... re-evaluate in am & prn Subjective Date of service: 02/03/20 Principal diagnosis: Ac on Ch hypoxemic resp failure; Acute P.E.; Malignant Effusion; DM II Interval history: Patient is seen today for: Ac on Ch hypoxemic resp failure; Acute P.E.; Malignant L. Pleural effusion; Morbid obesity; HTN; Diabetes mellitus Seen and examined at bedside; 24hour events reviewed; nursing and respiratory care staff consulted; no adverse overnight events reported to me; resting in bed; remains on supplemental oxygen; No N/V/F/C Objective Vital Signs - 12hr 02/03/20 02/03/20 02/03/20 04:00 04:36 07:30 Temperature 98.6 F 98.2 F Pulse Rate 82 98 H Respiratory 16 19 Rate Blood Pressure 116/78 123/78 O2 Sat by Pulse 96 100 Oximetry 02/03/20 02/03/20 09:43 09:44 Temperature Pulse Rate 106 H 106 H Respiratory Rate Blood Pressure 103/64 103/64 O2 Sat by Pulse Oximetry Constitutional: no acute distress, other (elderly looking obese AAF, normocephalic with mildly increased respiratopry effort at rest) Eyes: non-icteric ENT: oropharynx moist Neck: supple, no lymphadenopathy, no JVD Effort: mildly labored Ascultation: Bilateral: diminished breath sounds (L>R), rhonchi (L>R) Percussion: Left: not dull Cardiovascular: regular rate and rhythm Gastrointestinal: normoactive bowel sounds, soft, non-tender, non-distended Integumentary: normal Extremities: no cyanosis, no edema, pulses normal, no ischemia or petechiae Neurologic: normal mental status, non-focal exam, pupils equal and round, motor strength normal and Psychiatric: mood appropriate, affect normal CBC and BMP: 02/04/20 03:31 02/01/20 05:04 ABG, PT/INR, D-dimer: PT/INR, D-dimer PT 13.5 Sec. (12.2-14.9) 01/31/20 06:42 INR 1.02 (0.87-1.13) 01/31/20 06:42 D-Dimer 856.13 ng/mlDDU (0-234) H 01/31/20 08:38 Abnormal lab findings: Abnormal Labs 01/31/20 01/31/20 01/31/20 06:42 06:42 06:42 MCH RDW 16.5 H Lymph % (Auto) 35.8 H Seg Neutrophils % D-Dimer 824.84 H Heparin Anti-Xa Level Carbon Dioxide 21 L Glucose 137 H POC Glucose Lactic Acid Calcium 10.6 H Magnesium 1.60 L Transferrin Lactate Dehydrogenase Total Creatine Kinase 28 L Albumin Ur Specific [place] 01/31/20 01/31/20 01/31/20 06:42 06:42 07:39 MCH RDW Lymph % (Auto) Seg Neutrophils % D-Dimer Heparin Anti-Xa Level Carbon Dioxide Glucose POC Glucose Lactic Acid 2.80 H* 3.40 H* Calcium Magnesium Transferrin Lactate Dehydrogenase Total Creatine Kinase Albumin 3.1 L Ur Specific [place] 01/31/20 01/31/20 01/31/20 08:38 08:38 08:38 MCH RDW Lymph % (Auto) Seg Neutrophils % D-Dimer 856.13 H Heparin Anti-Xa Level Carbon Dioxide Glucose POC Glucose Lactic Acid 3.20 H* Calcium Magnesium Transferrin 184 L Lactate Dehydrogenase 257 H Total Creatine Kinase Albumin Ur Specific [place] 01/31/20 01/31/20 01/31/20 10:45 11:54 16:13 MCH RDW Lymph % (Auto) Seg Neutrophils % D-Dimer Heparin Anti-Xa Level 1.59 H Carbon Dioxide Glucose POC Glucose 125 H Lactic Acid Calcium Magnesium Transferrin Lactate Dehydrogenase Total Creatine Kinase Albumin Ur Specific [place] 1.053 H 01/31/20 01/31/20 02/01/20 16:13 17:09 00:42 MCH RDW Lymph % (Auto) Seg Neutrophils % D-Dimer Heparin Anti-Xa Level 1.43 H Carbon Dioxide Glucose POC Glucose 132 H Lactic Acid 3.10 H* Calcium Magnesium Transferrin Lactate Dehydrogenase Total Creatine Kinase Albumin Ur Specific [place] 02/01/20 02/01/20 02/01/20 05:04 05:04 08:16 MCH 27 L RDW 16.5 H Lymph % (Auto) Seg Neutrophils % 72.8 H D-Dimer Heparin Anti-Xa Level 1.15 H Carbon Dioxide Glucose 104 H POC Glucose Lactic Acid Calcium 10.5 H Magnesium Transferrin Lactate Dehydrogenase Total Creatine Kinase Albumin 3.4 L Ur Specific [place] 02/01/20 02/02/20 02/02/20 18:17 08:17 16:29 MCH RDW Lymph % (Auto) Seg Neutrophils % D-Dimer Heparin Anti-Xa Level Carbon Dioxide Glucose POC Glucose 117 H 118 H 112 H Lactic Acid Calcium Magnesium Transferrin Lactate Dehydrogenase Total Creatine Kinase Albumin Ur Specific [place] 02/02/20 02/02/20 02/03/20 17:11 21:29 12:09 MCH RDW Lymph % (Auto) Seg Neutrophils % D-Dimer Heparin Anti-Xa Level 0.10 L Carbon Dioxide Glucose POC Glucose 118 H 129 H Lactic Acid Calcium Magnesium Transferrin Lactate Dehydrogenase Total Creatine Kinase Albumin Ur Specific [place] Allied health notes reviewed: nursing
--- NOTE | 2020-02-03 16:43 | Progress Note ---
Assessment and Plan Assessment and plan: 02/03/2020:Oncology recommend radiation oncologist evaluation for possible radiation therapy 02/02/2020; CT abdomen and pelvis reviewed bilateral metastatic adrenal lesions --Acute on chronic hypoxic respiratory failure; Home oxygen dependent, oxygen titrate O2 sats more than 90% BiPAP as needed, nebulizers, IV steroids, IV antibiotics Pulmonary following CT angiogram of the chest: 1. Positive critical value with new small right-sided pulmonary emboli. 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 3. Large malignant left loculated pleural effusion has increased in size and causes downward and medial mass affect upon the left hemidiaphragm with displacement of spleen and kidney medially. 4. Bilateral adrenal and left rib metastases, unchanged --Acute pulmonary embolism; With elevated D-dimers, heparin drip changed to Lovenox Oxygen titrate O2 sats more than 90%, supportive care lower extremity venous Doppler negative for DVT --Metastatic Pancoast tumor; on CTA chest Supportive care, pulmonary,f/u oncology recommendations Get old records from the past --Malignant left pleural effusion; Supportive care, thoracentesis if needed --Metastatic lesions bilateral adrenal left rib, mediastinal mass Pulmonary oncology evaluation recommendations noted and appreciated --Syncopal episode; Fall precautions, physical therapy occupational therapy --Lactic acidosis; no evidence of infection at this point Empiric antibiotics, follow cultures --Possible UTI; empiric antibiotics Follow cultures --Hypomagnesemia; replenish per protocol with mag sulfate Monitor electrolytes --Moderate malnutrition/hypoalbuminemia Due to underlying disease process Nutrition supplements and supportive care --Type 2 diabetes mellitus; Accu-Chek sliding scale coverage ADA diet Long-acting insulin as needed --Hypertension; moderate control Resume home antihypertensives and PRN medications --Dyslipidemia; resume statin --Morbid obesity; BMI 40.1 Patient may need to reduce weight when medically stable --DVT prophylax; patient is on heparin drip --Full CODE STATUS; Monitor closely and adjust management as needed Plan of care reviewed with the patient and her nurse Hematology oncology and pulmonary evaluation and recommendations Noted and appreciated History Interval history: I have seen and examined this patient this afternoon at the bedside in her room Patient's chart, tests and reports, consultants recommendations reviewed Patient feels slightly better, Oncology, pulmonary following Oncology recommend radiation oncologist evaluation for possible radiation therapy Complains of mild shortness of breath on oxygen Vital signs noted Hospitalist Physical - Constitutional Vitals: Temp Pulse Resp BP Pulse Ox 98.2 F 74 24 103/64 100 02/03/20 07:30 02/03/20 12:00 02/03/20 10:00 02/03/20 09:44 02/03/20 07:30 General appearance: Present: mild distress, well-nourished, obese (Morbidly obese) - EENT Eyes: Present: PERRL, EOM intact - Neck Neck: Present: supple, normal ROM - Respiratory Respiratory effort: normal Respiratory: bilateral: diminished, rhonchi, negative: rales, wheezing - Cardiovascular Rhythm: regular Heart Sounds: Present: S1 & S2 - Extremities Extremities: no ischemia, No edema - Abdominal General gastrointestinal: soft, non-tender, non-distended, normal bowel sounds - Integumentary Integumentary: Present: clear, warm - Psychiatric Psychiatric: appropriate mood/affect, cooperative - Neurologic Neurologic: CNII-XII intact, moves all extremities ELI score - Eli Score Age > 65: (0) No Aspirin use within the Past 7 Days: (0) No 3 or more CAD Risk Factors: (1) Yes 2 or more Angina events in past 24 hrs: (0) No Known CAD with more than 50% Stenosis: (0) No Elevated Cardiac Markers: (0) No ST Deviation Greater than 0.5mm: (0) No ELI Score: 1 Results - Labs CBC & Chem 7: 02/02/20 03:30 02/01/20 05:04 Labs: Laboratory Last Values WBC 7.0 K/mm3 (4.5-11.0) 02/01/20 05:04 RBC 4.06 M/mm3 (3.65-5.03) 02/01/20 05:04 Hgb 11.6 gm/dl (10.1-14.3) 02/02/20 03:30 Hct 36.1 % (30.3-42.9) 02/02/20 03:30 MCV 84 fl (79-97) 02/01/20 05:04 MCH 27 pg (28-32) L 02/01/20 05:04 MCHC 32 % (30-34) 02/01/20 05:04 RDW 16.5 % (13.2-15.2) H 02/01/20 05:04 Plt Count 225 K/mm3 (140-440) 02/02/20 03:30 Lymph % (Auto) 20.4 % (13.4-35.0) 02/01/20 05:04 Saline % (Auto) 5.7 % (0.0-7.3) 02/01/20 05:04 Eos % (Auto) 0.2 % (0.0-4.3) 02/01/20 05:04 Baso % (Auto) 0.9 % (0.0-1.8) 02/01/20 05:04 Lymph # 1.4 K/mm3 (1.2-5.4) 02/01/20 05:04 Saline # 0.4 K/mm3 (0.0-0.8) 02/01/20 05:04 Eos # 0.0 K/mm3 (0.0-0.4) 02/01/20 05:04 Baso # 0.1 K/mm3 (0.0-0.1) 02/01/20 05:04 Seg Neutrophils % 72.8 % (40.0-70.0) H 02/01/20 05:04 Seg Neutrophils # 5.1 K/mm3 (1.8-7.7) 02/01/20 05:04 PT 13.5 Sec. (12.2-14.9) 01/31/20 06:42 INR 1.02 (0.87-1.13) 01/31/20 06:42 APTT 25.6 Sec. (24.2-36.6) 01/31/20 06:42 D-Dimer 856.13 ng/mlDDU (0-234) H 01/31/20 08:38 Heparin Anti-Xa Level 0.10 U.I./ml (0.3-0.7) L 02/02/20 17:11 Sodium 141 mmol/L (137-145) 02/01/20 05:04 Potassium 3.9 mmol/L (3.6-5.0) 02/01/20 05:04 Chloride 106.0 mmol/L (98-107) 02/01/20 05:04 Carbon Dioxide 22 mmol/L (22-30) 02/01/20 05:04 Anion Gap 17 mmol/L 02/01/20 05:04 BUN 10 mg/dL (7-17) 02/01/20 05:04 Creatinine 0.8 mg/dL (0.7-1.2) 02/01/20 05:04 Estimated GFR > 60 ml/min 02/01/20 05:04 BUN/Creatinine Ratio 13 % 02/01/20 05:04 Glucose 104 mg/dL (65-100) H 02/01/20 05:04 POC Glucose 129 (70-105) H 02/03/20 12:09 Lactic Acid 1.70 mmol/L (0.7-2.0) 01/31/20 23:01 Calcium 10.5 mg/dL (8.4-10.2) H 02/01/20 05:04 Magnesium 1.60 mg/dL (1.7-2.3) L 01/31/20 06:42 Transferrin 184 mg/dl (192-382) L 01/31/20 08:38 Total Bilirubin 0.30 mg/dL (0.1-1.2) 02/01/20 05:04 Direct Bilirubin < 0.2 mg/dL (0-0.2) 01/31/20 06:42 AST 14 units/L (5-40) 02/01/20 05:04 ALT 16 units/L (7-56) 02/01/20 05:04 Alkaline Phosphatase 111 units/L (35-129) 02/01/20 05:04 Lactate Dehydrogenase 257 units/L (91-180) H 01/31/20 08:38 Total Creatine Kinase 28 units/L (30-135) L 01/31/20 06:42 CK-MB (CK-2) < 1.0 ng/mL (0.0-4.0) 01/31/20 06:42 CK-MB (CK-2) Rel Index 3.5 (0-4) 01/31/20 06:42 Troponin T < 0.010 ng/mL (0.00-0.029) 01/31/20 09:33 NT-Pro-B Natriuret Pep 121.1 pg/mL (0-900) 01/31/20 06:42 Total Protein 6.9 g/dL (6.3-8.2) 02/01/20 05:04 Albumin 3.4 g/dL (3.9-5) L 02/01/20 05:04 Albumin/Globulin Ratio 1.0 % 02/01/20 05:04 Urine Color Yellow (Yellow) 01/31/20 10:45 Urine Turbidity Clear (Clear) 01/31/20 10:45 Urine pH 5.0 (5.0-7.0) 01/31/20 10:45 Ur Specific [place] 1.053 (1.003-1.030) H 01/31/20 10:45 Urine Protein <15 mg/dl mg/dL (Negative) 01/31/20 10:45 Urine Glucose (UA) Neg mg/dL (Negative) 01/31/20 10:45 Urine Ketones Tr mg/dL (Negative) 01/31/20 10:45 Urine Blood Neg (Negative) 01/31/20 10:45 Urine Nitrite Neg (Negative) 01/31/20 10:45 Urine Bilirubin Neg (Negative) 01/31/20 10:45 Urine Urobilinogen < 2.0 mg/dL (<2.0) 01/31/20 10:45 Ur Leukocyte Esterase Tr (Negative) 01/31/20 10:45 Urine WBC (Auto) < 1.0 /HPF (0.0-6.0) 01/31/20 10:45 Urine RBC (Auto) 2.0 /HPF (0.0-6.0) 01/31/20 10:45 U Epithel Cells (Auto) 8.0 /HPF (0-13.0) 01/31/20 10:45 Urine Bacteria (Auto) 1+ /HPF (Negative) 01/31/20 10:45 Urine Mucus Few /HPF 01/31/20 10:45 Microbiology: Microbiology 01/31/20 06:42 Peripheral/Venous Blood Culture - Preliminary NO GROWTH AFTER 72 HOURS 01/31/20 06:42 Peripheral/Venous Blood Culture - Preliminary NO GROWTH AFTER 72 HOURS Torres/IV: Voiding Method Bedside Commode IV Catheter Type [Right INT / Saline Lock Antecubital] IV Catheter Type [Right INT / Saline Lock Forearm] Active Medications - Current Medications Current Medications: Generic Name Dose Route Start Last Admin Trade Name Freq PRN Reason Stop Dose Admin Alprazolam 0.25 mg 02/02/20 10:48 Xanax PO Q8H PRN Anxiety Aspirin 81 mg 02/01/20 10:00 02/03/20 09:43 Baby Aspirin PO 81 mg QDAY [facility] Administration Atorvastatin Calcium 40 mg 01/31/20 22:00 02/02/20 21:47 Lipitor PO 40 mg QHS [facility] Administration Enoxaparin Sodium 100 mg 02/02/20 22:00 02/03/20 09:43 Enoxaparin SUB-Q 100 mg Q12HR [facility] Administration Ceftriaxone Sodium 1 gm in 50 mls @ 100 mls/hr 01/31/20 19:30 02/03/20 09:43 Rocephin/Ns 1 Gm/50 Ml IV 02/06/20 10:29 100 mls/hr Q24HR [facility] Administration Protocol Insulin Glargine 28 units 01/31/20 22:00 02/02/20 21:52 Lantus SUB-Q Not Given QHS [facility] Insulin Human Lispro 10 unit 01/31/20 11:30 02/03/20 16:36 Humalog SUB-Q Not Given AC [facility] Insulin Human Lispro 0 unit 01/31/20 11:30 02/03/20 16:37 Humalog SUB-Q Not Given ACHS [facility] Protocol Lisinopril 5 mg 02/01/20 10:00 02/03/20 09:44 Zestril PO Not Given DAILY [facility] Metoprolol Tartrate 12.5 mg 02/01/20 22:00 02/03/20 09:43 Metoprolol PO 12.5 mg BID [facility] Administration Nifedipine 30 mg 01/31/20 12:00 02/03/20 09:43 Procardia Xl PO 30 mg QDAY [facility] Administration Ondansetron HCl 4 mg 01/31/20 12:51 Zofran IV Q4H PRN Nausea And Vomiting
[2020-02-03] MEDS: INSULIN GLARGINE 100 UNITS/ML SUB-Q SCH (21:12)
[2020-02-04 04:30] LABS: Hemoglobin 10.5 gm/dl (10.1-14.3)
[2020-02-04] MEDS: INSULIN LISPRO 100 UNIT/ML SUB-Q SCH ×6 (07:50→17:21)
[2020-02-04] MEDS: ENOXAPARIN 100 MG/1 ML INJ SUB-Q SCH ×2 (10:23→10:46)
[2020-02-04] MEDS: METOPROLOL TARTRATE 25 MG TAB PO SCH ×2 (10:23→10:47)
--- NOTE | 2020-02-04 10:43 | Progress Note ---
Assessment and Plan Assessment and plan: 02/04/2020; patient was evaluated by radiation oncologist Dr. Rodriguez, recommended palliative radiation therapy For possible stage IV metastatic lung cancer 02/03/2020:Oncology recommend radiation oncologist evaluation for possible radiation therapy 02/02/2020; CT abdomen and pelvis reviewed bilateral metastatic adrenal lesions --Acute on chronic hypoxic respiratory failure; Home oxygen dependent, oxygen titrate O2 sats more than 90% BiPAP as needed, nebulizers, IV steroids, IV antibiotics Pulmonary following CT angiogram of the chest: 1. Positive critical value with new small right-sided pulmonary emboli. 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 3. Large malignant left loculated pleural effusion has increased in size and causes downward and medial mass affect upon the left hemidiaphragm with displacement of spleen and kidney medially. 4. Bilateral adrenal and left rib metastases, unchanged --Acute pulmonary embolism; With elevated D-dimers, heparin drip changed to Lovenox Oxygen titrate O2 sats more than 90%, supportive care lower extremity venous Doppler negative for DVT --Metastatic Pancoast tumor; on CTA chest Supportive care, pulmonary,f/u oncology recommendations Get old records from the past --Malignant left pleural effusion; Supportive care, thoracentesis if needed --Metastatic lesions bilateral adrenal left rib, mediastinal mass Pulmonary oncology evaluation recommendations noted and appreciated --Syncopal episode; Fall precautions, physical therapy occupational therapy --Lactic acidosis; no evidence of infection at this point Empiric antibiotics, follow cultures --Possible UTI; empiric antibiotics Follow cultures --Hypomagnesemia; replenish per protocol with mag sulfate Monitor electrolytes --Moderate malnutrition/hypoalbuminemia Due to underlying disease process Nutrition supplements and supportive care --Type 2 diabetes mellitus; Accu-Chek sliding scale coverage ADA diet Long-acting insulin as needed --Hypertension; moderate control Resume home antihypertensives and PRN medications --Dyslipidemia; resume statin --Morbid obesity; BMI 40.1 Patient may need to reduce weight when medically stable --DVT prophylax; patient is on heparin drip --Full CODE STATUS; Monitor closely and adjust management as needed Plan of care reviewed with the patient and her nurse Hematology oncology and pulmonary evaluation and recommendations Noted and appreciated Hospitalist Physical - Constitutional Vitals: Temp Pulse Resp BP Pulse Ox 98.2 F 100 H 18 149/89 96 02/04/20 07:36 02/04/20 04:00 02/04/20 07:36 02/04/20 07:36 02/04/20 03:23 General appearance: Present: mild distress, well-nourished, obese (Morbidly obese) ELI score - Eli Score Age > 65: (0) No Aspirin use within the Past 7 Days: (0) No 3 or more CAD Risk Factors: (1) Yes 2 or more Angina events in past 24 hrs: (0) No Known CAD with more than 50% Stenosis: (0) No Elevated Cardiac Markers: (0) No ST Deviation Greater than 0.5mm: (0) No ELI Score: 1 Results - Labs CBC & Chem 7: 02/04/20 03:31 02/01/20 05:04 Labs: Laboratory Last Values WBC 7.0 K/mm3 (4.5-11.0) 02/01/20 05:04 RBC 4.06 M/mm3 (3.65-5.03) 02/01/20 05:04 Hgb 10.5 gm/dl (10.1-14.3) 02/04/20 03:31 Hct 33.0 % (30.3-42.9) 02/04/20 03:31 MCV 84 fl (79-97) 02/01/20 05:04 MCH 27 pg (28-32) L 02/01/20 05:04 MCHC 32 % (30-34) 02/01/20 05:04 RDW 16.5 % (13.2-15.2) H 02/01/20 05:04 Plt Count 210 K/mm3 (140-440) 02/04/20 03:31 Lymph % (Auto) 20.4 % (13.4-35.0) 02/01/20 05:04 [place] % (Auto) 5.7 % (0.0-7.3) 02/01/20 05:04 Eos % (Auto) 0.2 % (0.0-4.3) 02/01/20 05:04 Baso % (Auto) 0.9 % (0.0-1.8) 02/01/20 05:04 Lymph # 1.4 K/mm3 (1.2-5.4) 02/01/20 05:04 [place] # 0.4 K/mm3 (0.0-0.8) 02/01/20 05:04 Eos # 0.0 K/mm3 (0.0-0.4) 02/01/20 05:04 Baso # 0.1 K/mm3 (0.0-0.1) 02/01/20 05:04 Seg Neutrophils % 72.8 % (40.0-70.0) H 02/01/20 05:04 Seg Neutrophils # 5.1 K/mm3 (1.8-7.7) 02/01/20 05:04 PT 13.5 Sec. (12.2-14.9) 01/31/20 06:42 INR 1.02 (0.87-1.13) 01/31/20 06:42 APTT 25.6 Sec. (24.2-36.6) 01/31/20 06:42 D-Dimer 856.13 ng/mlDDU (0-234) H 01/31/20 08:38 Heparin Anti-Xa Level 0.10 U.I./ml (0.3-0.7) L 02/02/20 17:11 Sodium 141 mmol/L (137-145) 02/01/20 05:04 Potassium 3.9 mmol/L (3.6-5.0) 02/01/20 05:04 Chloride 106.0 mmol/L (98-107) 02/01/20 05:04 Carbon Dioxide 22 mmol/L (22-30) 02/01/20 05:04 Anion Gap 17 mmol/L 02/01/20 05:04 BUN 10 mg/dL (7-17) 02/01/20 05:04 Creatinine 0.8 mg/dL (0.7-1.2) 02/01/20 05:04 Estimated GFR > 60 ml/min 02/01/20 05:04 BUN/Creatinine Ratio 13 % 02/01/20 05:04 Glucose 104 mg/dL (65-100) H 02/01/20 05:04 POC Glucose 74 (70-105) 02/04/20 08:06 Lactic Acid 1.70 mmol/L (0.7-2.0) 01/31/20 23:01 Calcium 10.5 mg/dL (8.4-10.2) H 02/01/20 05:04 Magnesium 1.60 mg/dL (1.7-2.3) L 01/31/20 06:42 Transferrin 184 mg/dl (192-382) L 01/31/20 08:38 Total Bilirubin 0.30 mg/dL (0.1-1.2) 02/01/20 05:04 Direct Bilirubin < 0.2 mg/dL (0-0.2) 01/31/20 06:42 AST 14 units/L (5-40) 02/01/20 05:04 ALT 16 units/L (7-56) 02/01/20 05:04 Alkaline Phosphatase 111 units/L (35-129) 02/01/20 05:04 Lactate Dehydrogenase 257 units/L (91-180) H 01/31/20 08:38 Total Creatine Kinase 28 units/L (30-135) L 01/31/20 06:42 CK-MB (CK-2) < 1.0 ng/mL (0.0-4.0) 01/31/20 06:42 CK-MB (CK-2) Rel Index 3.5 (0-4) 01/31/20 06:42 Troponin T < 0.010 ng/mL (0.00-0.029) 01/31/20 09:33 NT-Pro-B Natriuret Pep 121.1 pg/mL (0-900) 01/31/20 06:42 Total Protein 6.9 g/dL (6.3-8.2) 02/01/20 05:04 Albumin 3.4 g/dL (3.9-5) L 02/01/20 05:04 Albumin/Globulin Ratio 1.0 % 02/01/20 05:04 Carcinoembryonic Ag 7.7 ng/mL (0.0-2.4) H 02/01/20 05:04 CA 19-9 Antigen 24 U/mL (<34) 02/01/20 05:04 Urine Color Yellow (Yellow) 01/31/20 10:45 Urine Turbidity Clear (Clear) 01/31/20 10:45 Urine pH 5.0 (5.0-7.0) 01/31/20 10:45 Ur Specific [place] 1.053 (1.003-1.030) H 01/31/20 10:45 Urine Protein <15 mg/dl mg/dL (Negative) 01/31/20 10:45 Urine Glucose (UA) Neg mg/dL (Negative) 01/31/20 10:45 Urine Ketones Tr mg/dL (Negative) 01/31/20 10:45 Urine Blood Neg (Negative) 01/31/20 10:45 Urine Nitrite Neg (Negative) 01/31/20 10:45 Urine Bilirubin Neg (Negative) 01/31/20 10:45 Urine Urobilinogen < 2.0 mg/dL (<2.0) 01/31/20 10:45 Ur Leukocyte Esterase Tr (Negative) 01/31/20 10:45 Urine WBC (Auto) < 1.0 /HPF (0.0-6.0) 01/31/20 10:45 Urine RBC (Auto) 2.0 /HPF (0.0-6.0) 01/31/20 10:45 U Epithel Cells (Auto) 8.0 /HPF (0-13.0) 01/31/20 10:45 Urine Bacteria (Auto) 1+ /HPF (Negative) 01/31/20 10:45 Urine Mucus Few /HPF 01/31/20 10:45 Microbiology: Microbiology 01/31/20 06:42 Peripheral/Venous Blood Culture - Preliminary NO GROWTH AFTER 72 HOURS 01/31/20 06:42 Peripheral/Venous Blood Culture - Preliminary NO GROWTH AFTER 72 HOURS Torres/IV: Voiding Method Bedside Commode IV Catheter Type [Right INT / Saline Lock Antecubital] IV Catheter Type [Right INT / Saline Lock Forearm] Active Medications - Current Medications Current Medications: Generic Name Dose Route Start Last Admin Trade Name Freq PRN Reason Stop Dose Admin Alprazolam 0.25 mg 02/02/20 10:48 Xanax PO Q8H PRN Anxiety Aspirin 81 mg 02/01/20 10:00 02/03/20 09:43 Baby Aspirin PO 81 mg QDAY [facility] Administration Atorvastatin Calcium 40 mg 01/31/20 22:00 02/03/20 21:10 Lipitor PO 40 mg QHS [facility] Administration Enoxaparin Sodium 100 mg 02/02/20 22:00 02/04/20 10:23 Enoxaparin SUB-Q Not Given Q12HR [facility] Ceftriaxone Sodium 1 gm in 50 mls @ 100 mls/hr 01/31/20 19:30 02/03/20 09:43 Rocephin/Ns 1 Gm/50 Ml IV 02/06/20 10:29 100 mls/hr Q24HR [facility] Administration Protocol Insulin Glargine 28 units 01/31/20 22:00 02/03/20 21:12 Lantus SUB-Q 28 units QHS [facility] Administration Insulin Human Lispro 10 unit 01/31/20 11:30 02/04/20 07:50 Humalog SUB-Q Not Given AC [facility] Insulin Human Lispro 0 unit 01/31/20 11:30 02/04/20 07:50 Humalog SUB-Q Not Given ACHS [facility] Protocol Lisinopril 5 mg 02/01/20 10:00 02/03/20 09:44 Zestril PO Not Given DAILY [facility] Metoprolol Tartrate 12.5 mg 02/01/20 22:00 02/04/20 10:23 Metoprolol PO Not Given BID [facility] Nifedipine 30 mg 01/31/20 12:00 02/03/20 09:43 Procardia Xl PO 30 mg QDAY [facility] Administration Ondansetron HCl 4 mg 01/31/20 12:51 Zofran IV Q4H PRN Nausea And Vomiting
[2020-02-04] MEDS: NIFEdipine XL 30 MG TAB PO SCH (10:46)
[2020-02-04] MEDS: LISINOPRIL 5 MG TAB PO SCH (10:46)
[2020-02-04] MEDS: cefTRIAXone/NS 1 GM/50 ML 1 GM/50 ML BAG IV SCH (10:46)
[2020-02-04] MEDS: ASPIRIN 81 MG TAB CHEW PO SCH (10:46)
[2020-02-04 13:27] VITALS: BP 105/83
--- NOTE | 2020-02-04 13:39 | Progress Note ---
Assessment and Plan Acute on chronic hypoxemic respiratory failure; Right sided acute pulmonary embolism Malignant Left loculated pleural effusion- complex pleural space Metastatic disease-Pancoast tumor Lactic acidosis Morbid obesity COPD Hypertension Diabetes mellitus -to f/up outpatient with her physicians - The loculated pleural space is complex and will need CTSx to address it. - continue supplemental oxygen to keep O2 sats >90% - follow oncology recommendations - prn analgesia per pain score - NIV prn as clinically indicated - continue full anticoagulation with Enoxaparin - bronchodilators with pulmonary hygiene per RT - continue empiric AE-COPD treatment including empiric CAP AB's - follow echocardiogram - MRI would be useful to evaluate for metastatic disease - Lactic acidosis could be secondary to tumor burden. No clinical evidence to suggest that she has sepsis/septic shock or hypoperfusion from any other reason - continue accucheck wtih glycemic control per SSI for target BG < 180 mg/dl - ABG, CXR as needed - Chronic home COPD medications - PT/OT to evaluate and treat - continue other care per attending / other consultants .... re-evaluate in am & prn Subjective Date of service: 02/04/20 Principal diagnosis: Ac on Ch hypoxemic resp failure; Acute P.E.; Malignant Effusion; DM II Interval history: Patient is seen today for: Ac on Ch hypoxemic resp failure; Acute P.E.; Malignant L. Pleural effusion; Morbid obesity; HTN; Diabetes mellitus Seen and examined at bedside; 24hour events reviewed; nursing and respiratory care staff consulted; no adverse overnight events reported to me; resting in bed; remains on supplemental oxygen; denies acute chest pains; no hemoptysis; back to baseline home oxygen level of 4L NC Objective Vital Signs - 12hr 02/04/20 02/04/20 02/04/20 03:23 04:00 07:36 Temperature 98.7 F 98.2 F Pulse Rate 100 H 100 H Pulse Rate [ From Monitor] Pulse Rate [ Left Dorsalis Pedis] Pulse Rate [ Right Dorsalis Pedis] Pulse Rate [ Right Posterior Tibial] Respiratory 18 18 Rate Blood Pressure 123/66 149/89 O2 Sat by Pulse 96 Oximetry 02/04/20 02/04/20 02/04/20 08:00 10:46 10:47 Temperature Pulse Rate 115 H 112 H Pulse Rate [ 114 H From Monitor] Pulse Rate [ 114 H Left Dorsalis Pedis] Pulse Rate [ 114 H Right Dorsalis Pedis] Pulse Rate [ 114 H Right Posterior Tibial] Respiratory 17 Rate Blood Pressure 110/83 110/83 O2 Sat by Pulse 97 Oximetry 02/04/20 02/04/20 10:49 12:00 Temperature Pulse Rate 114 H 96 H Pulse Rate [ From Monitor] Pulse Rate [ Left Dorsalis Pedis] Pulse Rate [ Right Dorsalis Pedis] Pulse Rate [ Right Posterior Tibial] Respiratory Rate Blood Pressure 105/83 O2 Sat by Pulse 100 Oximetry Constitutional: no acute distress, other (elderly looking obese AAF, normocephalic with mildly increased respiratopry effort at rest) Eyes: non-icteric ENT: oropharynx moist Neck: supple, no lymphadenopathy, no JVD Effort: mildly labored Ascultation: Bilateral: diminished breath sounds, rales Percussion: Left: not dull Cardiovascular: regular rate and rhythm Gastrointestinal: normoactive bowel sounds, soft, non-tender, non-distended Integumentary: normal Extremities: no cyanosis, no edema, pulses normal, no ischemia or petechiae Neurologic: normal mental status, non-focal exam, pupils equal and round, motor strength normal and Psychiatric: mood appropriate, affect normal CBC and BMP: 02/04/20 03:31 02/01/20 05:04 ABG, PT/INR, D-dimer: PT/INR, D-dimer PT 13.5 Sec. (12.2-14.9) 01/31/20 06:42 INR 1.02 (0.87-1.13) 01/31/20 06:42 D-Dimer 856.13 ng/mlDDU (0-234) H 01/31/20 08:38 Abnormal lab findings: Abnormal Labs 01/31/20 01/31/20 01/31/20 06:42 06:42 06:42 MCH RDW 16.5 H Lymph % (Auto) 35.8 H Seg Neutrophils % D-Dimer 824.84 H Heparin Anti-Xa Level Carbon Dioxide 21 L Glucose 137 H POC Glucose Lactic Acid Calcium 10.6 H Magnesium 1.60 L Transferrin Lactate Dehydrogenase Total Creatine Kinase 28 L Albumin Carcinoembryonic Ag Ur Specific [place] 01/31/20 01/31/20 01/31/20 06:42 06:42 07:39 MCH RDW Lymph % (Auto) Seg Neutrophils % D-Dimer Heparin Anti-Xa Level Carbon Dioxide Glucose POC Glucose Lactic Acid 2.80 H* 3.40 H* Calcium Magnesium Transferrin Lactate Dehydrogenase Total Creatine Kinase Albumin 3.1 L Carcinoembryonic Ag Ur Specific [place] 01/31/20 01/31/20 01/31/20 08:38 08:38 08:38 MCH RDW Lymph % (Auto) Seg Neutrophils % D-Dimer 856.13 H Heparin Anti-Xa Level Carbon Dioxide Glucose POC Glucose Lactic Acid 3.20 H* Calcium Magnesium Transferrin 184 L Lactate Dehydrogenase 257 H Total Creatine Kinase Albumin Carcinoembryonic Ag Ur Specific [place] 01/31/20 01/31/20 01/31/20 10:45 11:54 16:13 MCH RDW Lymph % (Auto) Seg Neutrophils % D-Dimer Heparin Anti-Xa Level 1.59 H Carbon Dioxide Glucose POC Glucose 125 H Lactic Acid Calcium Magnesium Transferrin Lactate Dehydrogenase Total Creatine Kinase Albumin Carcinoembryonic Ag Ur Specific [place] 1.053 H 01/31/20 01/31/20 02/01/20 16:13 17:09 00:42 MCH RDW Lymph % (Auto) Seg Neutrophils % D-Dimer Heparin Anti-Xa Level 1.43 H Carbon Dioxide Glucose POC Glucose 132 H Lactic Acid 3.10 H* Calcium Magnesium Transferrin Lactate Dehydrogenase Total Creatine Kinase Albumin Carcinoembryonic Ag Ur Specific [place] 02/01/20 02/01/20 02/01/20 05:04 05:04 05:04 MCH 27 L RDW 16.5 H Lymph % (Auto) Seg Neutrophils % 72.8 H D-Dimer Heparin Anti-Xa Level Carbon Dioxide Glucose 104 H POC Glucose Lactic Acid Calcium 10.5 H Magnesium Transferrin Lactate Dehydrogenase Total Creatine Kinase Albumin 3.4 L Carcinoembryonic Ag 7.7 H Ur Specific [place] 02/01/20 02/01/20 02/02/20 08:16 18:17 08:17 MCH RDW Lymph % (Auto) Seg Neutrophils % D-Dimer Heparin Anti-Xa Level 1.15 H Carbon Dioxide Glucose POC Glucose 117 H 118 H Lactic Acid Calcium Magnesium Transferrin Lactate Dehydrogenase Total Creatine Kinase Albumin Carcinoembryonic Ag Ur Specific [place] 02/02/20 02/02/20 02/02/20 16:29 17:11 21:29 MCH RDW Lymph % (Auto) Seg Neutrophils % D-Dimer Heparin Anti-Xa Level 0.10 L Carbon Dioxide Glucose POC Glucose 112 H 118 H Lactic Acid Calcium Magnesium Transferrin Lactate Dehydrogenase Total Creatine Kinase Albumin Carcinoembryonic Ag Ur Specific [place] 02/03/20 02/03/20 02/03/20 12:09 16:38 20:57 MCH RDW Lymph % (Auto) Seg Neutrophils % D-Dimer Heparin Anti-Xa Level Carbon Dioxide Glucose POC Glucose 129 H 139 H 235 H Lactic Acid Calcium Magnesium Transferrin Lactate Dehydrogenase Total Creatine Kinase Albumin Carcinoembryonic Ag Ur Specific [place] Allied health notes reviewed: nursing
--- NOTE | 2020-02-04 14:29 | Discharge Summary ---
Providers - Providers Date of Admission: 01/31/20 10:13 Date of discharge: 02/04/20 Attending physician: KARIE TAPIA 01/31/20 11:20 Consult to Physician [CONS] Routine Comment: Consulting Provider: REINA BURT Physician Instructions: Reason For Exam: PE/ Pancoast tumor with mets on CTA 02/01/20 10:10 Consult to Physician [CONS] Routine Comment: Consulting Provider: BIBIANA BAILEY Physician Instructions: Reason For Exam: Malignant pleural effusion/Pancoast tumor/mets 02/03/20 07:47 Consult to Physician [CONS] Urgent Comment: Consulting Provider: DEBBY ORTIZ Physician Instructions: ? pancoast - I spoke to dr ortiz Reason For Exam: pancoast Primary care physician: ELECT[employer]IC DESIGN ENGINEER Hospitalization Condition: Stable Hospital course: 02/04/2020; patient was evaluated by radiation oncologist Dr. Rodriguez, recommended palliative radiation therapy as out patient. For possible stage IV metastatic lung cancer, 02/03/2020:Oncology recommend radiation oncologist evaluation for possible radiation therapy 02/02/2020; CT abdomen and pelvis reviewed bilateral metastatic adrenal lesions --Acute on chronic hypoxic respiratory failure; Home oxygen dependent, oxygen titrate O2 sats more than 90% BiPAP as needed, nebulizers, IV steroids, IV antibiotics Pulmonary following CT angiogram of the chest: 1. Positive critical value with new small right-sided pulmonary emboli. 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 3. Large malignant left loculated pleural effusion has increased in size and causes downward and medial mass affect upon the left hemidiaphragm with displacement of spleen and kidney medially. 4. Bilateral adrenal and left rib metastases, unchanged --Acute pulmonary embolism; With elevated D-dimers, heparin drip changed to Lovenox Oxygen titrate O2 sats more than 90%, supportive care lower extremity venous Doppler negative for DVT --Metastatic Pancoast tumor; on CTA chest Supportive care, pulmonary,f/u oncology recommendations Get old records from the past --Malignant left pleural effusion; Supportive care, thoracentesis if needed --Metastatic lesions bilateral adrenal left rib, mediastinal mass Pulmonary oncology evaluation recommendations noted and appreciated --Syncopal episode; Fall precautions, physical therapy occupational therapy --Lactic acidosis; no evidence of infection at this point Empiric antibiotics, follow cultures --Possible UTI; empiric antibiotics Follow cultures --Hypomagnesemia; replenish per protocol with mag sulfate Monitor electrolytes --Moderate malnutrition/hypoalbuminemia Due to underlying disease process Nutrition supplements and supportive care --Type 2 diabetes mellitus; Accu-Chek sliding scale coverage ADA diet Long-acting insulin as needed --Hypertension; moderate control Resume home antihypertensives and PRN medications --Dyslipidemia; resume statin --Morbid obesity; BMI 40.1 Patient may need to reduce weight when medically stable --DVT prophylax; patient is on heparin drip --Full CODE STATUS; Monitor closely and adjust management as needed Plan of care reviewed with the patient and her nurse Hematology oncology and pulmonary evaluation and recommendations Noted and appreciated Disposition: DC/[place]-06 HOME UNDER HOME [facility] Time spent for discharge: 32 min Core Measure Documentation - Palliative Care Palliative Care/ Comfort Measures: Not Applicable - Core Measures Any of the following diagnoses?: none Exam - Constitutional Vitals: Temp Pulse Resp BP Pulse Ox 98.2 F 96 H 17 105/83 100 02/04/20 07:36 02/04/20 12:00 02/04/20 08:00 02/04/20 10:49 02/04/20 10:49 General appearance: Present: no acute distress, well-nourished - EENT Eyes: Present: PERRL, EOM intact - Neck Neck: Present: supple, normal ROM - Respiratory Respiratory effort: normal Respiratory: bilateral: diminished, rhonchi, negative: rales, wheezing - Cardiovascular Rhythm: regular Heart Sounds: Present: S1 & S2 - Extremities Extremities: no ischemia, No edema - Abdominal General gastrointestinal: Present: soft, non-tender, non-distended, normal bowel sounds - Integumentary Integumentary: Present: clear, warm - Musculoskeletal Musculoskeletal: strength equal bilaterally - Psychiatric Psychiatric: appropriate mood/affect, cooperative - Neurologic Neurologic: moves all extremities Plan Activity: advance as tolerated, fall precautions Diet: diabetic Additional Instructions: Advised to follow Dr. Rodriguez on 02/06/2020 at 2 PM for radiation therapy. Advised to follow pulmonary/oncology per schedule as given below. Continue home oxygen as before. If your symptoms become worse contact MD or go to emergency room Follow up with: BORIS STARK MD [Primary Care Provider] - 3-5 Days REINA BURT MD [Staff Physician] - 7 Days REGINALDO ZHENG MD [Staff Physician] - 7 Days DEBBY ORTIZ MD [Staff Physician] - 02/06/20 2:00 pm Prescriptions: Apixaban [Eliquis] 2 tab PO BID 7 Days #28 tablet Apixaban [Eliquis] 1 tab PO BID 23 Days #46 tablet ALPRAZolam [Xanax TAB] 0.25 mg PO BID PRN #10 tablet PRN Reason: Anxiety
== END 2020-02-04 17:21 | disposition home health service (06) | DRG 175 ==
LOC: ED 05:52 → 4A 10:13
PROVIDERS: ADMIT Internal Medicine; ATTEND Internal Medicine
DX: I26.99 Other pulmonary embolism without acute cor pulmonale (principal); J96.21 Acute and chronic respiratory failure with hypoxia; E87.2 Acidosis; N39.0 Urinary tract infection, site not specified; E44.0 Moderate protein-calorie malnutrition; Z68.41 Body mass index [BMI] 40.0-44.9, adult; C34.10 Malignant neoplasm of upper lobe, unspecified bronchus or lung; J91.0 Malignant pleural effusion; E66.01 Morbid (severe) obesity due to excess calories; E11.9 Type 2 diabetes mellitus without complications; J44.9 Chronic obstructive pulmonary disease, unspecified; I10 Essential (primary) hypertension; E78.5 Hyperlipidemia, unspecified; E83.42 Hypomagnesemia; Z79.899 Other long term (current) drug therapy; Z99.81 Dependence on supplemental oxygen
CPT/HCPCS: 36415; 70450; 71045; 71275; 74177; 80048; 80053; 80076; 81001; 82106; 82140; 82378; 82550; 82553; 82962; 83615; 83735; 83880; 84466; 84484; 85014; 85018; 85025; 85049; 85379; 85520; 85610; 85730; 86301; 87040; 87086; 93005; 93970; G0378; A9270-GY; J0692; J0696; J1644; J1650; J1815; J2405; J3475; J7030; J7040; Q9967

== ENCOUNTER 2020-02-13 09:19 | Inpatient (IN) | payer MEDICARE ==
[2020-02-13] MEDS ORDERED: SODIUM CHLORIDE 0.9% 1000 ML IV SOLN IV ONE (11:26)
--- NOTE | 2020-02-13 11:36 | Emergency Department Report ---
ED General Adult HPI - General Chief complaint: Arrhythmia/Palpitations Stated complaint: HEART RATE LOW/LBP Time Seen by Provider: 02/13/20 11:25 Source: patient, family, old records reviewed Mode of arrival: Wheelchair Limitations: No Limitations - History of Present Illness Initial comments: CC: "Everything was low." HPI: Mrs. Denise is a 64 yo female with hx of HTN, DM, dyslipidemia, COPD, PE on eliquis who presents with increased heart rate, low blood pressure and hypoxia. Recently dx'd during hospital admission with metastatic pancoast tumo r. Abnormal vital signs were detected at the radiation center today. She has had persistent cough. She has had poor appetite. She states that food gets stucks in her chest if she attempts to eat. Denies fever, vomiting, abdominal pain. -: Gradual, days(s) (1) Consistency: constant Improves with: none Worsens with: none Associated Symptoms: malaise - Related Data Home Medications Medication Instructions Recorded Confirmed Last Taken AtorvaSTATin [Lipitor] 40 mg PO QHS 07/22/19 01/31/20 07/21/19 Insulin Aspart (Nf) [NovoLOG 10 units SQ AC 07/22/19 01/31/20 07/21/19 Flexpen] Insulin Detemir (Nf) [Levemir 28 unit SQ QHS 07/22/19 01/31/20 07/21/19 Flextouch (Nf)] NIFEdipine [Nifedipine ER] 30 mg PO QDAY 07/22/19 01/31/20 07/21/19 lisinopriL [Zestril TAB] 1 tab PO DAILY 11/26/19 01/31/20 Unknown Previous Rx's Medication Instructions Recorded Last Taken Type Aspirin [Aspirin BABY CHEW TAB] 81 mg PO QDAY #30 tab.chew 07/27/19 Unknown Rx Acetaminophen [Tylenol] 325 mg PO Q6H PRN #30 capsule 11/27/19 Unknown Rx ALPRAZolam [Xanax TAB] 0.25 mg PO BID PRN #10 tablet 02/04/20 Unknown Rx Apixaban [Eliquis] 1 tab PO BID 23 Days #46 tablet 02/04/20 Unknown Rx Apixaban [Eliquis] 2 tab PO BID 7 Days #28 tablet 02/04/20 Unknown Rx Allergies Allergy/AdvReac Type Severity Reaction Status Date / Time No Known Allergies Allergy Verified 02/13/20 09:23 ED Review of Systems ROS: Stated complaint: HEART RATE LOW/LBP Other details as noted in HPI Comment: All other systems reviewed and negative Constitutional: malaise. denies: chills, fever Respiratory: cough, shortness of breath Cardiovascular: denies: chest pain Gastrointestinal: nausea. denies: abdominal pain, vomiting ED Past Medical Hx - Past Medical History Previous Medical History?: Yes Hx Hypertension: Yes Hx Diabetes: Yes Hx of Cancer: Yes (mass on lungs) Hx COPD: Yes (4lpm cont) Hx HIV: No Additional medical history: mass (noncancerous as per pt) on L kidney tx with partial lobectomy. mass on right kidney (cancer) tx with nephrectomy. Kidney stones treated with stent. Home oxygen since July 2019. Elevated cholesterol - Surgical History Past Surgical History?: Yes Additional Surgical History: mass (noncancerous as per pt) on L kidney tx? (nurses note) with partial lobectomy. mass on right kidney (cancer) tx with nephrectomy - Social History Smoking Status: Former Smoker Substance Use Type: None - Medications Home Medications: Home Medications Medication Instructions Recorded Confirmed Last Taken Type AtorvaSTATin [Lipitor] 40 mg PO QHS 07/22/19 01/31/20 07/21/19 History Insulin Aspart (Nf) [NovoLOG 10 units SQ AC 07/22/19 01/31/20 07/21/19 History Flexpen] Insulin Detemir (Nf) [Levemir 28 unit SQ QHS 07/22/19 01/31/20 07/21/19 History Flextouch (Nf)] NIFEdipine [Nifedipine ER] 30 mg PO QDAY 07/22/19 01/31/20 07/21/19 History Aspirin [Aspirin BABY CHEW TAB] 81 mg PO QDAY #30 tab.chew 07/27/19 01/31/20 Unknown Rx lisinopriL [Zestril TAB] 1 tab PO DAILY 11/26/19 01/31/20 Unknown History Acetaminophen [Tylenol] 325 mg PO Q6H PRN #30 capsule 11/27/19 01/31/20 Unknown Rx ALPRAZolam [Xanax TAB] 0.25 mg PO BID PRN #10 tablet 02/04/20 Unknown Rx Apixaban [Eliquis] 1 tab PO BID 23 Days #46 tablet 02/04/20 Unknown Rx Apixaban [Eliquis] 2 tab PO BID 7 Days #28 tablet 02/04/20 Unknown Rx ED Physical Exam - General Limitations: No Limitations General appearance: alert, in distress (Moderate work of breathing speaks sentences with much effort) - Head Head exam: Present: atraumatic, normocephalic - Eye Eye exam: Absent: scleral icterus, conjunctival injection - ENT ENT exam: Present: mucous membranes dry - Neck Neck exam: Present: normal inspection, full ROM - Respiratory Respiratory exam: Present: rales, rhonchi (Rhonchi auscultated left superior portion of the posterior torso) - Cardiovascular Cardiovascular Exam: Present: normal rhythm, tachycardia. Absent: systolic murmur, diastolic murmur, rubs, gallop - GI/Abdominal GI/Abdominal exam: Present: soft. Absent: distended, tenderness, guarding, rebound - Back Exam Back exam: Present: other (Lipoma right superior back) - Neurological Exam Neurological exam: Present: alert, oriented X3 - Psychiatric Psychiatric exam: Present: normal affect, normal mood - Skin Skin exam: Present: warm, dry, intact, pallor. Absent: rash ED Course Vital Signs 02/13/20 02/13/20 09:29 12:01 Temperature 98.0 F Pulse Rate 132 H 105 H Respiratory 24 15 Rate Blood Pressure 103/52 90/65 O2 Sat by Pulse 92 96 Oximetry ED Medical Decision Making - Lab Data Result diagrams: 02/13/20 11:31 02/13/20 11:31 Laboratory Results - last 24 hr 02/13/20 02/13/20 02/13/20 11:31 11:31 11:31 WBC 7.0 RBC 4.08 Hgb 11.3 Hct 34.3 MCV 84 MCH 28 MCHC 33 RDW 16.6 H Plt Count 251 Lymph % (Auto) 8.4 L [place] % (Auto) 1.4 Eos % (Auto) 0.4 Baso % (Auto) 0.9 Lymph # 0.6 L [place] # 0.1 Eos # 0.0 Baso # 0.1 Seg Neutrophils % 88.9 H Seg Neutrophils # 6.2 D-Dimer 849.58 H Sodium 135 L Potassium 3.9 Chloride 100.0 Carbon Dioxide 21 L Anion Gap 18 BUN 13 Creatinine 1.0 Estimated GFR > 60 BUN/Creatinine Ratio 13 Glucose 117 H POC Glucose Lactic Acid Calcium 11.1 H Total Bilirubin 0.80 AST 12 ALT 11 Alkaline Phosphatase 114 Troponin T < 0.010 Total Protein 7.2 Albumin 3.1 L Albumin/Globulin Ratio 0.8 02/13/20 02/13/20 02/13/20 11:31 11:50 12:54 WBC RBC Hgb Hct MCV MCH MCHC RDW Plt Count Lymph % (Auto) [place] % (Auto) Eos % (Auto) Baso % (Auto) Lymph # [place] # Eos # Baso # Seg Neutrophils % Seg Neutrophils # D-Dimer Sodium Potassium Chloride Carbon Dioxide Anion Gap BUN Creatinine Estimated GFR BUN/Creatinine Ratio Glucose POC Glucose 117 H Lactic Acid 2.40 H* 2.30 H* Calcium Total Bilirubin AST ALT Alkaline Phosphatase Troponin T Total Protein Albumin Albumin/Globulin Ratio 02/13/20 14:38 WBC RBC Hgb Hct MCV MCH MCHC RDW Plt Count Lymph % (Auto) [place] % (Auto) Eos % (Auto) Baso % (Auto) Lymph # [place] # Eos # Baso # Seg Neutrophils % Seg Neutrophils # D-Dimer Sodium Potassium Chloride Carbon Dioxide Anion Gap BUN Creatinine Estimated GFR BUN/Creatinine Ratio Glucose POC Glucose Lactic Acid 3.00 H* Calcium Total Bilirubin AST ALT Alkaline Phosphatase Troponin T Total Protein Albumin Albumin/Globulin Ratio - Radiology Data Radiology results: report reviewed CT Angiogram of the chest: persistent pulmonary thromboembolus at right middle lobe Stable appearance of severely invasic Pancoast type mass and large pleural effusion chest radiograph: airspace opacities, pleural effusion similar to the prior study - Medical Decision Making 1. Acute respiratory failure hypoxia due to large malignant pleural effusion invasive Pancoast tumor, 2. Sirs: Sepsis protocol initiated including broad-spectrum antibiotics 3. Metastatic cancer will need aggressive or palliative care Admitted to the hospital service in fair condition Critical Care Time: Yes Critical care attestation.: If time is entered above; I have spent that time in minutes in the direct care of this critically ill patient, excluding procedure time. 40 minutes of critical care time excluding procedures were used in the care of the patient. I reviewed electronic record. I discussed treatment plan with the nursing team members at the bedside. I came immediately to the bedside upon patient's arrival to the treatment room. I was concerned for sepsis, dehydration, new pulmonary emboli. Patient required immediate treatment. Patient required multiple interventions and reassessments. ED Disposition Clinical Impression: Acute respiratory failure with hypoxia, SIRS (systemic inflammatory response syndrome), Metastatic lung carcinoma, Pancoast tumor of left lung Disposition: DC-[id number] OP ADMIT IP TO THIS HOSP Is pt being admited?: Yes Does the pt Need Aspirin: No Condition: Stable
[2020-02-13 11:58] LABS: Basophils # (Auto) 0.1 K/mm3 (0.0-0.1); Basophils % (Auto) 0.9 % (0.0-1.8); Eosinophils % (Auto) 0.4 % (0.0-4.3); Hematocrit 34.3 % (30.3-42.9); Hemoglobin 11.3 gm/dl (10.1-14.3); Lymphocytes # (Auto) 0.6 K/mm3 (1.2-5.4); Lymphocytes % (Auto) 8.4 % (13.4-35.0); Mean Corpuscular HGB Conc 33 % (30-34); Mean Corpuscular Volume 84 fl (79-97); Monocytes # (Auto) 0.1 K/mm3 (0.0-0.8); Monocytes % (Auto) 1.4 % (0.0-7.3); Platelet Count 251 K/mm3 (140-440); Red Blood Count 4.08 M/mm3 (3.65-5.03); Red Cell Distribution Width 16.6 % (13.2-15.2)
[2020-02-13] MEDS: CEFEPIME/NS 2 GM/100 ML 2 GM/100 ML BAG IV SCH ×3 (12:06→23:33)
[2020-02-13 12:21] LABS: Alanine Aminotransferase 11 units/L (7-56); Albumin 3.1 g/dL (3.9-5); BUN/Creatinine Ratio 13; Blood Urea Nitrogen 13 mg/dL (7-17); Calcium 11.1 mg/dL (8.4-10.2); Hemolysis Index 6
[2020-02-13] MEDS ORDERED: ONDANSETRON 4 MG/2 ML INJ IV ONE (12:42)
[2020-02-13] MEDS ORDERED: oxyCODONE /ACETAMINOPHEN 5-325MG TAB PO ONE (12:42)
[2020-02-13] MEDS ORDERED: MORPHINE 4 MG/1 ML INJ IV ONE (12:42)
--- NOTE | 2020-02-13 14:26 | XRay Report ---
CHEST 1 VIEW INDICATION / CLINICAL INFORMATION: tachycardia hypotension hypoxia. COMPARISON: 01/31/2020 FINDINGS: SUPPORT DEVICES: None. HEART / MEDIASTINUM: There is enlargement of the cardiac silhouette. LUNGS / PLEURA: Airspace opacity on the left appears similar to the prior study. There is mild increa se in interstitial markings bilaterally. There is a left pleural effusion which appears similar to th e prior study. No pneumothorax. ADDITIONAL FINDINGS: No significant additional findings. IMPRESSION: 1. There is mild increase in interstitial markings bilaterally suggesting superimposed edema. Airspac e opacities and pleural effusion on the left appear similar to the prior study. Signer Name: Palomo Denis MD Signed: 02/13/2020 2:22 PM Workstation Name: [id number]
--- NOTE | 2020-02-13 14:56 | Cat Scan Report ---
CTA CHEST WITH IV CONTRAST INDICATION: Hypotension, worsening hypoxia dyspnea and chest pain with known lung cancer TECHNIQUE: Axial CT images were obtained through the chest after injection of 100 mL IV contrast. 3 plane MIP re constructions were produced. All CT scans at this location are performed using CT dose reduction for ALARA by means of automated exposure control. COMPARISON: 01/31/2020 FINDINGS: PULMONARY ARTERIES: Several emboli are present within the right middle lobe segmental arteries, simil ar to the prior exam. No new pulmonary embolus is appreciated within either lung. AORTA AND ARTERIES: No significant change MEDIASTINUM/LUNGS: Large invasive pancreas tumor along the left apex with significant vascular invasi on involving the left subclavian artery, left inframammary artery as well as the base of the left com mon carotid ovary. The mass is difficult to separate from the aortic arch. The mass extends along the pleural surface and causes significant left anterior chest wall invasion. There is severe left axill rachelle adenopathy, stable from the prior exam. There is severe erosive rib destruction involving the lef t sixth rib, similar to the prior exam. Loculated left-sided pleural effusion is unchanged in size. T he right-sided pleural effusion may be slightly increased in size in the interim IMPRESSION: 1. Persistent pulmonary thromboembolus within the right middle lobe, similar to the known embolus fro m 01/31/2020. No new pulmonary thromboembolus is identified. 2. Grossly stable appearance of the severely invasive Pancoast type mass along the left lung apex wit h significant vascular pleural and chest wall invasion. Large left pleural effusion has not significa ntly changed in size in the interim. There may be slightly worsening invasive carcinomatosis involvin g the noncollapsed left upper lobe in the interim. 3. Slight increase in size of the right-sided pleural effusion in the interim. Signer Name: Kei Francis MD Signed: 02/13/2020 2:52 PM Workstation Name: [id number]
[2020-02-13] MEDS ORDERED: ALPRAZolam 0.25 MG TAB PO PRN (18:43)
--- NOTE | 2020-02-13 18:43 | History and Physical Report ---
History of Present Illness Date of examination: 02/13/20 Date of admission: February 13, 2020 Chief complaint: Palpitations and low blood pressure and low blood pressure since a.m. History of present illness: [id number] female with history of insulin-dependent diabetes, hypertension, hyperlipidemia and COPD comes in for palpitations and heart rate and a low blood pressure and feeling very weak. In the emergency room patient was found to be hypoxic. Patient also has history of Pancoast tumor on the left side of the lung. Palpitations are severe. No chest pain. No fever or chills. Patient was diagnosed with a left lung Pancoast tumor with invasion of the left subclavian artery. Also mediastinal lymphadenopathy. Stage IV cancer. Patient getting have radiation therapy from February 05 and had about 4 sessions. Missed 1 session. Patient on home oxygen. Patient's law enforcement director is her [id number]. She did not inform her son about the cancer diagnosis. No weight loss. Past Medical History Previous Medical History?: Yes Hypertension: Yes Diabetes: Yes Hx of Cancer: Yes (mass on lungs) COPD: Yes (4lpm cont) Additional medical history: mass (noncancerous as per pt) on L kidney tx with partial nephrectomy. mass on right kidney (cancer) tx with nephrectomy. Kidney stones treated with stent. Home oxygen since July 2019. Elevated cholesterol - Surgical History Past Surgical History?: Yes Additional Surgical History: mass (noncancerous as per pt) on L kidney tx? (nurses note) with partial nephrectomy. mass on right kidney (cancer) tx with nephrectomy - Social History Smoking Status: Former Smoker Substance Use Type: None Family history HTN - Medications Home Medications: Home Medications Medication Instructions Recorded Confirmed Last Taken Type AtorvaSTATin [Lipitor] 40 mg PO QHS 07/22/19 01/31/20 07/21/19 History Insulin Aspart (Nf) [NovoLOG 10 units SQ AC 07/22/19 01/31/20 07/21/19 History Flexpen] Insulin Detemir (Nf) [Levemir 28 unit SQ QHS 07/22/19 01/31/20 07/21/19 History Flextouch (Nf)] NIFEdipine [Nifedipine ER] 30 mg PO QDAY 07/22/19 01/31/20 07/21/19 History Aspirin [Aspirin BABY CHEW TAB] 81 mg PO QDAY #30 tab.chew 07/27/19 01/31/20 Unknown Rx lisinopriL [Zestril TAB] 1 tab PO DAILY 11/26/19 01/31/20 Unknown History Acetaminophen [Tylenol] 325 mg PO Q6H PRN #30 capsule 11/27/19 01/31/20 Unknown Rx ALPRAZolam [Xanax TAB] 0.25 mg PO BID PRN #10 tablet 02/04/20 Unknown Rx Apixaban [Eliquis] 1 tab PO BID 23 Days #46 tablet 02/04/20 Unknown Rx Apixaban [Eliquis] 2 tab PO BID 7 Days #28 tablet 02/04/20 Unknown Rx Review of Systems ROS: Constitutional no weight loss or weight gain no fever or chills HEENT no sore throat no post nasal drip no diplopia Neck no neck stiffness no lymph gland enlargement Chest and lungs shortness of breath at rest CVS no chest pain no diaphoresis palpitations present GI no nausea no vomiting no diarrhea Genitourinary system no dysuria no flank pain Musculoskeletal system no muscle pains no joint pains [employer] no syncope no seizures Skin no rash no itching Psychiatric no depression no homicidal or suicidal tendencies Hematologic no lymphedema or bruising Endocrine no polydipsia no polyuria no cold intolerance no heat intolerance Medications and Allergies Allergies Allergy/AdvReac Type Severity Reaction Status Date / Time No Known Allergies Allergy Verified 02/13/20 09:23 Home Medications Medication Instructions Recorded Confirmed Last Taken Type AtorvaSTATin [Lipitor] 40 mg PO QHS 07/22/19 01/31/20 07/21/19 History Insulin Aspart (Nf) [NovoLOG 10 units SQ AC 07/22/19 01/31/20 07/21/19 History Flexpen] Insulin Detemir (Nf) [Levemir 28 unit SQ QHS 07/22/19 01/31/20 07/21/19 History Flextouch (Nf)] NIFEdipine [Nifedipine ER] 30 mg PO QDAY 07/22/19 01/31/20 07/21/19 History Aspirin [Aspirin BABY CHEW TAB] 81 mg PO QDAY #30 tab.chew 07/27/19 01/31/20 Unknown Rx lisinopriL [Zestril TAB] 1 tab PO DAILY 11/26/19 01/31/20 Unknown History Acetaminophen [Tylenol] 325 mg PO Q6H PRN #30 capsule 11/27/19 01/31/20 Unknown Rx ALPRAZolam [Xanax TAB] 0.25 mg PO BID PRN #10 tablet 02/04/20 Unknown Rx Apixaban [Eliquis] 1 tab PO BID 23 Days #46 tablet 02/04/20 Unknown Rx Apixaban [Eliquis] 2 tab PO BID 7 Days #28 tablet 02/04/20 Unknown Rx Active Meds: Active Medications Cefepime HCl (Cefepime/Ns 2 Gm/100 Ml) 2 gm in 100 mls @ 200 mls/hr IV Q8HR RODRIGUE ; Protocol Exam - Constitutional Vitals: Temp Pulse Resp BP Pulse Ox 98.0 F 121 H 15 140/95 97 02/13/20 09:29 02/13/20 18:01 02/13/20 18:01 02/13/20 18:01 02/13/20 18:01 General appearance: Present: mild distress, well-nourished - EENT Eyes: Present: PERRL ENT: hearing intact, clear oral mucosa - Neck Neck: Present: supple, normal ROM - Respiratory Respiratory effort: normal Respiratory: left: diminished (Diminished air entry), bilateral: CTA, rhonchi, wheezing - Cardiovascular Heart rate: 98 Rhythm: regular Heart Sounds: Present: S1 & S2. Absent: rub, click - Extremities Extremities: pulses symmetrical, No edema Peripheral Pulses: within normal limits - Abdominal General gastrointestinal: Present: soft, non-tender, non-distended, normal bowel sounds Female genitourinary: Present: normal - Integumentary Integumentary: Present: clear, warm, dry - Musculoskeletal Musculoskeletal: gait normal, strength equal bilaterally - Psychiatric Psychiatric: appropriate mood/affect, intact judgment & insight - Neurologic Neurologic: CNII-XII intact, moves all extremities - Allied Health Allied health notes reviewed: nursing, case management ELI score - Eli Score Age > 65: (0) No Aspirin use within the Past 7 Days: (0) No 3 or more CAD Risk Factors: (1) Yes 2 or more Angina events in past 24 hrs: (0) No Known CAD with more than 50% Stenosis: (0) No Elevated Cardiac Markers: (0) No ST Deviation Greater than 0.5mm: (0) No ELI Score: 1 Results - Labs CBC & Chem 7: 02/14/20 04:36 02/14/20 04:36 Labs: Laboratory Last Values WBC 7.0 K/mm3 (4.5-11.0) 02/13/20 11:31 RBC 4.08 M/mm3 (3.65-5.03) 02/13/20 11:31 Hgb 11.3 gm/dl (10.1-14.3) 02/13/20 11:31 Hct 34.3 % (30.3-42.9) 02/13/20 11:31 MCV 84 fl (79-97) 02/13/20 11:31 MCH 28 pg (28-32) 02/13/20 11:31 MCHC 33 % (30-34) 02/13/20 11:31 RDW 16.6 % (13.2-15.2) H 02/13/20 11:31 Plt Count 251 K/mm3 (140-440) 02/13/20 11:31 Lymph % (Auto) 8.4 % (13.4-35.0) L 02/13/20 11:31 [place] % (Auto) 1.4 % (0.0-7.3) 02/13/20 11:31 Eos % (Auto) 0.4 % (0.0-4.3) 02/13/20 11:31 Baso % (Auto) 0.9 % (0.0-1.8) 02/13/20 11:31 Lymph # 0.6 K/mm3 (1.2-5.4) L 02/13/20 11:31 [place] # 0.1 K/mm3 (0.0-0.8) 02/13/20 11:31 Eos # 0.0 K/mm3 (0.0-0.4) 02/13/20 11:31 Baso # 0.1 K/mm3 (0.0-0.1) 02/13/20 11:31 Seg Neutrophils % 88.9 % (40.0-70.0) H 02/13/20 11:31 Seg Neutrophils # 6.2 K/mm3 (1.8-7.7) 02/13/20 11:31 D-Dimer 849.58 ng/mlDDU (0-234) H 02/13/20 11:31 Sodium 135 mmol/L (137-145) L 02/13/20 11:31 Potassium 3.9 mmol/L (3.6-5.0) 02/13/20 11:31 Chloride 100.0 mmol/L (98-107) 02/13/20 11:31 Carbon Dioxide 21 mmol/L (22-30) L 02/13/20 11:31 Anion Gap 18 mmol/L 02/13/20 11:31 BUN 13 mg/dL (7-17) 02/13/20 11:31 Creatinine 1.0 mg/dL (0.7-1.2) 02/13/20 11:31 Estimated GFR > 60 ml/min 02/13/20 11:31 BUN/Creatinine Ratio 13 % 02/13/20 11:31 Glucose 117 mg/dL (65-100) H 02/13/20 11:31 POC Glucose 117 (70-105) H 02/13/20 11:50 Lactic Acid 3.00 mmol/L (0.7-2.0) H* 02/13/20 14:38 Calcium 11.1 mg/dL (8.4-10.2) H 02/13/20 11:31 Total Bilirubin 0.80 mg/dL (0.1-1.2) 02/13/20 11:31 AST 12 units/L (5-40) 02/13/20 11:31 ALT 11 units/L (7-56) 02/13/20 11:31 Alkaline Phosphatase 114 units/L (35-129) 02/13/20 11:31 Troponin T < 0.010 ng/mL (0.00-0.029) 02/13/20 11:31 Total Protein 7.2 g/dL (6.3-8.2) 02/13/20 11:31 Albumin 3.1 g/dL (3.9-5) L 02/13/20 11:31 Albumin/Globulin Ratio 0.8 % 02/13/20 11:31 Short CBC 02/14/20 Range/Units 04:36 WBC 6.4 (4.5-11.0) K/mm3 Hgb 10.7 (10.1-14.3) gm/dl Hct 33.5 (30.3-42.9) % Plt Count 207 (140-440) K/mm3 BMP 02/14/20 04:36 Sodium 138 Potassium 4.0 Chloride 103.6 Carbon Dioxide 22 BUN 15 Creatinine 0.9 Glucose 127 H Calcium 10.3 H Liver Function 02/14/20 Range/Units 04:36 Total Bilirubin 0.30 (0.1-1.2) mg/dL AST 10 (5-40) units/L ALT 10 (7-56) units/L Alkaline Phosphatase 99 (35-129) units/L Albumin 3.0 L (3.9-5) g/dL Urine 02/14/20 Range/Units 02:05 Urine Color Yellow (Yellow) Urine pH 5.0 (5.0-7.0) Ur Specific [place] 1.055 H (1.003-1.030) Urine Protein 30 mg/dl (Negative) mg/dL Urine Glucose (UA) Neg (Negative) mg/dL Microbiology: Microbiology 02/13/20 Unknown Peripheral/Venous Blood Culture - Preliminary Culture in Progress 02/13/20 Unknown Peripheral/Venous Blood Culture - Preliminary Culture in Progress - Imaging and Cardiology EKG: report reviewed (Sinus tachycardia) Chest x-ray: report reviewed Imaging and Cardiology: CXR IMPRESSION: 1. There is mild increase in interstitial markings bilaterally suggesting superimposed edema. Airspace opacities and pleural effusion on the left appear similar to the prior study. CTA chest IMPRESSION: 1. Persistent pulmonary thromboembolus within the right middle lobe, similar to the known embolus from 01/31/2020. No new pulmonary thromboembolus is identified. 2. Grossly stable appearance of the severely invasive Pancoast type mass along the left lung apex with significant vascular pleural and chest wall invasion. Large left pleural effusion has not significantly changed in size in the interim. There may be slightly worsening invasive carcinomatosis involving the noncollapsed left upper lobe in the interim. 3. Slight increase in size of the right-sided pleural effusion in the interim. Signer Name: Kei Francis MD Torres/IV: IV Catheter Type [Right INT / Saline Lock Forearm] Assessment and Plan Advance Directives: Yes (Full code) VTE prophylaxis?: Chemical Plan of care discussed with patient/family: Yes - Patient Problems (1) Acute respiratory failure with hypoxia Current Visit: Yes Status: Acute Plan to address problem: Continue oxygen as required BiPAP if necessary Intubation if necessary (2) SIRS (systemic inflammatory response syndrome) Current Visit: Yes Status: Acute Plan to address problem: Clinical picture consistent with systemic inflammatory response syndrome Patient tachypneic and tachycardic (3) Pancoast tumor of left lung Current Visit: Yes Status: Acute Plan to address problem: Extensive left apex Pancoast tumor invading the vascular pleural and chest wall. Aggressive tumor. Patient undergoing radiation therapy from February 06, 2020. Poor prognosis to discuss DNR (4) COPD (chronic obstructive pulmonary disease) Current Visit: No Status: Chronic Qualifiers: COPD type: unspecified COPD Qualified Code(s): J44.9 - Chronic obstructive pulmonary disease, unspecified Plan to address problem: On home oxygen Continue bronchodilators IV antibiotics IV Solu-Medrol if coronavirus becomes negative. (5) Insulin dependent diabetes mellitus Current Visit: Yes Status: Acute (6) Hypertension Current Visit: No Status: Chronic Qualifiers: Hypertension type: essential hypertension Qualified Code(s): I10 - Essential (primary) hypertension Plan to address problem: Continue antihypertensives Adjust medications as necessary (7) DVT prophylaxis Current Visit: No Status: Acute Plan to address problem: Patient on Eliquis for history of pulmonary embolism recently (8) Advance care planning Current Visit: No Status: Acute Plan to address problem: Palliative therapy was discussed Patient refuses DNR Patient wants everything to be done
[2020-02-13] MEDS ORDERED: MORPHINE 2 MG/1 ML INJ IV PRN (18:44)
[2020-02-13] MEDS ORDERED: ONDANSETRON 4 MG/2 ML INJ IV PRN (18:44)
[2020-02-13] MEDS ORDERED: oxyCODONE /ACETAMINOPHEN 5-325MG TAB PO PRN (18:44)
[2020-02-13] MEDS ORDERED: ACETAMINOPHEN 325 MG TAB PO PRN (18:44)
[2020-02-13] MEDS ORDERED: SODIUM CHLORIDE 0.9% 1000 ML 1,000 ML IV SCH (18:45)
[2020-02-13] MEDS ORDERED: NON-FORMULARY EACH (Nifedipine [Nifedipine Er] 30 MG) PO SCH (18:45)
[2020-02-13] MEDS ORDERED: IPRATROPIUM/ALBUTEROL SULFATE 3 ML AMPUL.NEB IH PRN (18:47)
[2020-02-13] MEDS ORDERED: INSULIN LISPRO 100 UNIT/ML SUB-Q ONE (18:48)
[2020-02-13] MEDS: HYDROmorphone 1 MG/1 ML INJ IV PRN (18:56)
[2020-02-13] MEDS: IPRATROPIUM/ALBUTEROL SULFATE 3 ML AMPUL.NEB IH SCH (21:46)
[2020-02-13] MEDS ORDERED: INSULIN DETEMIR 18 UNIT SQ SCH (22:00)
[2020-02-13] MEDS ORDERED: INSULIN GLARGINE 100 UNITS/ML SUB-Q SCH (22:00)
[2020-02-13] MEDS: APIXABAN 5 MG TAB PO SCH (23:33)
[2020-02-14 03:02] LABS: Bacteria,Urine 1+ /HPF (Negative); Bilirubin,Urine NEG (Negative); Blood,Urine NEG (Negative); Color,Urine Yellow (Yellow); Mucus,Urine FEW /HPF; Urobilinogen,Urine < 2.0 mg/dL (<2.0)
[2020-02-14 05:08] LABS: Basophils % (Auto) 0.3 % (0.0-1.8); Eosinophils % (Auto) 0.3 % (0.0-4.3); Hematocrit 33.5 % (30.3-42.9); Hemoglobin 10.7 gm/dl (10.1-14.3); Lymphocytes # (Auto) 0.5 K/mm3 (1.2-5.4); Lymphocytes % (Auto) 8.6 % (13.4-35.0); Mean Corpuscular HGB Conc 32 % (30-34); Mean Corpuscular Volume 86 fl (79-97); Monocytes # (Auto) 0.3 K/mm3 (0.0-0.8); Monocytes % (Auto) 4.6 % (0.0-7.3); Platelet Count 207 K/mm3 (140-440); Red Blood Count 3.89 M/mm3 (3.65-5.03); Red Cell Distribution Width 16.8 % (13.2-15.2)
[2020-02-14 05:27] LABS: Alanine Aminotransferase 10 units/L (7-56); BUN/Creatinine Ratio 17; Blood Urea Nitrogen 15 mg/dL (7-17); Calcium 10.3 mg/dL (8.4-10.2); Hemolysis Index 3
[2020-02-14] MEDS ORDERED: EPINEPHrine 1:10,000 1 MG/10 ML SYRINGE ONE (05:46)
[2020-02-14] MEDS ORDERED: LIDOCAINE PF 100 MG/5 ML (CARDIAC SYRINGE) IV ONE (05:46)
[2020-02-14] MEDS ORDERED: EPINEPHrine 30 MG/30 ML INJ IV ONE (05:46)
[2020-02-14] MEDS: CEFEPIME/NS 2 GM/100 ML 2 GM/100 ML BAG IV SCH ×2 (06:11→13:34)
[2020-02-14] MEDS ORDERED: INSULIN ASPART 5 UNIT SQ SCH (07:30)
[2020-02-14] MEDS: IPRATROPIUM/ALBUTEROL SULFATE 3 ML AMPUL.NEB IH SCH ×3 (09:35→16:05)
[2020-02-14] MEDS: INSULIN LISPRO 100 UNIT/ML SUB-Q SCH ×3 (09:44→18:18)
[2020-02-14] MEDS: HYDROmorphone 1 MG/1 ML INJ IV PRN (09:47)
[2020-02-14] MEDS: APIXABAN 5 MG TAB PO SCH (09:50)
[2020-02-14] MEDS ORDERED: LISINOPRIL 5 MG TAB PO SCH (10:00)
[2020-02-14] MEDS ORDERED: ASPIRIN 81 MG TAB CHEW PO SCH (10:00)
--- NOTE | 2020-02-14 11:42 | Consultation ---
History of Present Illness Consult date: 02/14/20 Medications and Allergies Allergies Allergy/AdvReac Type Severity Reaction Status Date / Time No Known Allergies Allergy Verified 02/13/20 09:23 Home Medications Medication Instructions Recorded Confirmed Last Taken Type AtorvaSTATin [Lipitor] 40 mg PO QHS 07/22/19 01/31/20 07/21/19 History Insulin Aspart (Nf) [NovoLOG 10 units SQ AC 07/22/19 01/31/20 07/21/19 History Flexpen] Insulin Detemir (Nf) [Levemir 28 unit SQ QHS 07/22/19 01/31/20 07/21/19 History Flextouch (Nf)] NIFEdipine [Nifedipine ER] 30 mg PO QDAY 07/22/19 01/31/20 07/21/19 History Aspirin [Aspirin BABY CHEW TAB] 81 mg PO QDAY #30 tab.chew 07/27/19 01/31/20 Unknown Rx lisinopriL [Zestril TAB] 1 tab PO DAILY 11/26/19 01/31/20 Unknown History Acetaminophen [Tylenol] 325 mg PO Q6H PRN #30 capsule 11/27/19 01/31/20 Unknown Rx ALPRAZolam [Xanax TAB] 0.25 mg PO BID PRN #10 tablet 02/04/20 Unknown Rx Apixaban [Eliquis] 1 tab PO BID 23 Days #46 tablet 02/04/20 Unknown Rx Apixaban [Eliquis] 2 tab PO BID 7 Days #28 tablet 02/04/20 Unknown Rx Active Meds: Active Medications Acetaminophen (Tylenol) 650 mg PO Q4H PRN PRN Reason: Pain MILD(1-3)/Fever >100.5/NGO Albuterol/Ipratropium (Duoneb *Not For Prn Use*) 1 ampul IH Q3H PRN PRN Reason: Wheezing Albuterol/Ipratropium (Duoneb *Not For Prn Use*) 1 ampul IH QIDRT [facility] Last Admin: 02/14/20 09:35 Dose: 1 ampul Documented by: Alprazolam (Xanax) 0.25 mg PO BID PRN PRN Reason: Anxiety Last Admin: 02/14/20 09:50 Dose: 0.25 mg Documented by: Apixaban (Eliquis) 5 mg PO BID [facility]; Protocol Last Admin: 02/14/20 09:50 Dose: 5 mg Documented by: Aspirin (Baby Aspirin) 81 mg PO QDAY [facility] Last Admin: 02/14/20 09:48 Dose: 81 mg Documented by: Atorvastatin Calcium (Lipitor) 40 mg PO QHS [facility] Last Admin: 02/13/20 23:33 Dose: 40 mg Documented by: Hydromorphone HCl (Dilaudid) 1 mg IV Q3H PRN PRN Reason: Pain , Severe (7-10) Last Admin: 02/14/20 09:47 Dose: 1 mg Documented by: Cefepime HCl (Cefepime/Ns 2 Gm/100 Ml) 2 gm in 100 mls @ 200 mls/hr IV Q8HR [facility]; Protocol Last Admin: 02/14/20 06:11 Dose: 200 mls/hr Documented by: Sodium Chloride (Nacl 0.9% 1000 Ml) 1,000 mls @ 75 mls/hr IV DIRECT [facility] Last Admin: 02/13/20 23:34 Dose: 75 mls/hr Documented by: Insulin Glargine (Lantus) 18 units SUB-Q QHS [facility] Last Admin: 02/13/20 23:34 Dose: 18 units Documented by: Insulin Human Lispro (Humalog) 5 unit SUB-Q [facility] Last Admin: 02/14/20 09:44 Dose: Not Given Documented by: Lisinopril (Zestril) 5 mg PO DAILY [facility] Last Admin: 02/14/20 09:48 Dose: 5 mg Documented by: Morphine Sulfate (Morphine) 2 mg IV Q4H PRN PRN Reason: Pain, Moderate (4-6) Nifedipine (Procardia Xl) 30 mg PO QDAY [facility] Ondansetron HCl (Zofran) 4 mg IV Q8H PRN PRN Reason: Nausea And Vomiting Oxycodone/Acetaminophen (Percocet 5/325) 1 tab PO Q6H PRN PRN Reason: Pain, Moderate (4-6) Last Admin: 02/13/20 18:55 Dose: 1 tab Documented by: Sodium Chloride (Sodium Chloride Flush Syringe 10 Ml) 10 ml IV BID [facility] Last Admin: 02/14/20 09:55 Dose: 10 ml Documented by: Sodium Chloride (Sodium Chloride Flush Syringe 10 Ml) 10 ml IV PRN PRN PRN Reason: LINE FLUSH Physical Examination Vital signs: Vital Signs Temp Pulse Resp BP Pulse Ox 98.0 F 132 H 24 103/52 92 02/13/20 09:29 02/13/20 09:29 02/13/20 09:29 02/13/20 09:29 02/13/20 09:29 Results - Laboratory Findings CBC and BMP: 02/14/20 04:36 02/14/20 04:36 PT/INR, D-dimer D-Dimer 849.58 ng/mlDDU (0-234) H 02/13/20 11:31 Abnormal lab findings: Abnormal Labs 02/13/20 02/13/20 02/13/20 11:31 11:31 11:31 RDW 16.6 H Lymph % (Auto) 8.4 L Lymph # 0.6 L Seg Neutrophils % 88.9 H D-Dimer 849.58 H Sodium 135 L Carbon Dioxide 21 L Glucose 117 H POC Glucose Lactic Acid Calcium 11.1 H Albumin 3.1 L Ur Specific [place] 02/13/20 02/13/20 02/13/20 11:31 11:50 12:54 RDW Lymph % (Auto) Lymph # Seg Neutrophils % D-Dimer Sodium Carbon Dioxide Glucose POC Glucose 117 H Lactic Acid 2.40 H* 2.30 H* Calcium Albumin Ur Specific [place] 02/13/20 02/13/20 02/14/20 14:38 23:16 02:05 RDW Lymph % (Auto) Lymph # Seg Neutrophils % D-Dimer Sodium Carbon Dioxide Glucose POC Glucose 160 H Lactic Acid 3.00 H* Calcium Albumin Ur Specific [place] 1.055 H 02/14/20 02/14/20 02/14/20 04:36 04:36 08:29 RDW 16.8 H Lymph % (Auto) 8.6 L Lymph # 0.5 L Seg Neutrophils % 86.2 H D-Dimer Sodium Carbon Dioxide Glucose 127 H POC Glucose 108 H Lactic Acid Calcium 10.3 H Albumin 3.0 L Ur Specific [place]
[2020-02-14] MEDS ORDERED: HEPARIN 5,000 UNIT/1 ML VIAL SUB-Q SCH (15:45)
[2020-02-14] MEDS ORDERED: NIFEdipine XL 30 MG TAB PO SCH (18:45)
--- NOTE | 2020-02-14 20:08 | Event Note ---
Date: 02/14/20 JO GUNTER was called at 5:15 PM. ACLS protocol was initiated Patient was in asystole Cardiac shock was given epi and bicarb were given Chest compressions were done Patient could not be revived Time of is 5:30 PM /1730 hrs.
--- NOTE | 2020-02-14 20:10 | Death Summary ---
Summary - Providers Date of service: 02/14/20 Consults: 02/13/20 18:44 Consult to Physician [CONS] Routine Comment: Consulting Provider: REGINALDO ZHENG Physician Instructions: Reason For Exam: Lung CA Attending: RIKA MCKENZIE - summary Date of admission: 02/13/20 16:05 Date of : 02/14/20 Pertinent studies: CT chest showed extensive Pancoast tumor on the left side with pleural effusion. Pancoast tumor was invading the vascular pleural and chest wall structures on the left side. Disposition: [id number] female with history of insulin-dependent diabetes, hypertension, hyperlipidemia and COPD comes in for palpitations and heart rate and a low blood pressure and feeling very weak. In the emergency room patient was found to be hypoxic. Patient also has history of Pancoast tumor on the left side of the lung. Palpitations are severe. No chest pain. No fever or chills. Patient was diagnosed with a left lung Pancoast tumor with invasion of the left subclavian artery. Also mediastinal lymphadenopathy. Stage IV cancer. Patient getting have radiation therapy from February 05 and had about 4 sessions. Missed 1 session. Patient on home oxygen. Patient's supplemental nurse is her [id number]. She did not inform her son about the cancer diagnosis. No weight loss. (1) Acute respiratory failure with hypoxia Current Visit: Yes Status: Acute Plan to address problem: Continue oxygen as required BiPAP if necessary Intubation if necessary (2) SIRS (systemic inflammatory response syndrome) Current Visit: Yes Status: Acute Plan to address problem: Clinical picture consistent with systemic inflammatory response syndrome Patient tachypneic and tachycardic (3) Pancoast tumor of left lung Current Visit: Yes Status: Acute Plan to address problem: Extensive left apex Pancoast tumor invading the vascular pleural and chest wall. Aggressive tumor. Patient undergoing radiation therapy from February 06, 2020. Poor prognosis to discuss DNR (4) COPD (chronic obstructive pulmonary disease) Current Visit: No Status: Chronic Qualifiers: COPD type: unspecified COPD Qualified Code(s): J44.9 - Chronic obstructive pulmonary disease, unspecified Plan to address problem: On home oxygen Continue bronchodilators IV antibiotics IV Solu-Medrol if coronavirus becomes negative. (5) Insulin dependent diabetes mellitus Current Visit: Yes Status: Acute (6) Hypertension Current Visit: No Status: Chronic Qualifiers: Hypertension type: essential hypertension Qualified Code(s): I10 - Essential (primary) hypertension Plan to address problem: Continue antihypertensives Adjust medications as necessary ACLS protocol was initiated at 5:15 PM Chest compressions were done Epinephrine given Sodium bicarb was given Patient was in asystole CODE BLUE was called off at 1730 hrs. Cause of cardiorespiratory failure Secondary to Pancoast tumor of lung with extensive metastasis - Final diagnosis (1) Acute respiratory failure with hypoxia Note: Final diagnosis: (2) SIRS (systemic inflammatory response syndrome) Note: Final diagnosis: (3) Pancoast tumor of left lung Note: Final diagnosis: (4) COPD (chronic obstructive pulmonary disease) Qualifiers: COPD type: COPD with acute exacerbation Qualified Code(s): J44.1 - Chronic obstructive pulmonary disease with (acute) exacerbation Note: Final diagnosis: (5) Insulin dependent diabetes mellitus Note: Final diagnosis: (6) Hypertension Qualifiers: Hypertension type: essential hypertension Qualified Code(s): I10 - Essential (primary) hypertension Note: Final diagnosis: (7) DVT prophylaxis Note: Final diagnosis: (8) Advance care planning Note: Final diagnosis:
[2020-02-17 11:33] VITALS: BP 91/47
== END 2020-02-14 20:30 | DRG 189 ==
LOC: ED 09:19 → 4A 16:05
PROVIDERS: ADMIT Internal Medicine; ATTEND Internal Medicine
PROC: 5A12012 Performance of Cardiac Output, Single, Manual (ICD-10-PCS; principal; 2020-02-14)
DX: J96.01 Acute respiratory failure with hypoxia (principal); I26.99 Other pulmonary embolism without acute cor pulmonale; C34.12 Malignant neoplasm of upper lobe, left bronchus or lung; R65.10 Systemic inflammatory response syndrome (SIRS) of non-infectious origin without acute organ dysfunction; J44.1 Chronic obstructive pulmonary disease with (acute) exacerbation; J90 Pleural effusion, not elsewhere classified; E78.5 Hyperlipidemia, unspecified; I10 Essential (primary) hypertension; I46.9 Cardiac arrest, cause unspecified; E11.9 Type 2 diabetes mellitus without complications; Z79.899 Other long term (current) drug therapy; Z79.4 Long term (current) use of insulin; Z79.82 Long term (current) use of aspirin; Z87.891 Personal history of nicotine dependence; Z99.81 Dependence on supplemental oxygen
CPT/HCPCS: 36415; 71045; 71275; 80053; 81001; 82140; 82962; 83036; 84484; 85025; 85379; 87040; 87641; 93005; 94640; 94760; G0378; A9270-GY; J0171; J0692; J1170; J1815; J2001; J2270; J2405; J7030; Q9967